=== PATIENT | female | born 1980 | race American Indian/Alaskan Native ===

== ENCOUNTER 2017-10-21 09:40 | Emergency (ER) | payer MEDICARE, MEDICAID ==
[2017-10-21 09:48] VITALS: BMI 32.8
[2017-10-21] MEDS ORDERED: Morphine 4 mg/ml ISec IVP STA ×2 (10:03→12:39)
[2017-10-21] MEDS ORDERED: Sodium Chloride 0.9% 1,000 ML IV STA (10:03)
--- NOTE | 2017-10-21 10:24 | ED PDOC ---
Arrival/HPI - General Chief Complaint: Abdominal Pain Time Seen by Provider: 10/21/17 09:55 Historian: Patient - History of Present Illness Narrative History of Present Illness (Text): 10/21/17 10:05 Vaughn Connolly is a 37 year old female, whose past medical history includes acute myeloid leukemia, received chemotherapy, a bone marrow transplant (5 weeks ago), hypertension, and asthma,who presents to the emergency department complaining of RLQ pain for one day. Patient notes that she was just at [facility] for follow-up yesterday, when she suddenly felt pain to RLQ area unremitting for 5 hours. Patient states that she has urinary frequency with some hematuria and vaginal bleeding due to having BK virus in urine. Patient denies any fever, chills, chest pain, shortness of breath, nausea, vomiting, diarrhea, back pain, neck pain, headache, dizziness, trauma/injury, suicidal/homicidal ideation or any other complaints. Time/Duration: 24 hours Symptom Onset: Gradual Symptom Course: Unchanged Activities at Onset: Light Context: Home Past Medical History - Provider Review Nursing Documentation Reviewed: Yes - Past History Past History: No Previous - Infectious Disease Hx of Infectious Diseases: None - Tetanus Immunization Tetanus Immunization: Unknown - Cardiac Hx Cardiac Disorders: Yes Hx Hypertension: Yes Hx Pacemaker: No - Pulmonary Hx Respiratory Disorders: Yes Hx Asthma: Yes - Neurological Hx Neurological Disorder: No - HEENT Hx HEENT Disorder: No - Renal Hx Renal Disorder: No - Endocrine/Metabolic Hx Endocrine Disorders: No - Hematological/Oncological Hx Blood Disorders: Yes Hx Anemia: Yes Hx Chemotherapy: Yes (for AML started Apr 2015 at [facility]) Hx Leukemia: Yes - Integumentary Hx Dermatological Disorder: No - Musculoskeletal/Rheumatological Hx Falls: No - Gastrointestinal Hx Gastrointestinal Disorders: No - Genitourinary/Gynecological Hx Sexually Transmitted Diseases: No Other/Comment: Hx fibroid uterus - Psychiatric Hx Psychophysiologic Disorder: Yes Hx Anxiety: Yes Hx Depression: No Hx Emotional Abuse: No Hx Panic Disorder: Yes Hx Physical Abuse: No Hx Substance Use: Yes (marijuana;STOPPED 01/2015) - Past Surgical History Past Surgical History: No Previous - Surgical History Other/Comment: Bone marrow transplant 5weeks ago from 10/21/2017 - Anesthesia Hx Anesthesia: Yes Hx Anesthesia Reactions: No Hx Malignant Hyperthermia: No - Suicidal Assessment Feels Threatened In Home Enviroment: No Family/Social History - Physician Review Nursing Documentation Reviewed: Yes Family/Social History: No Known Family HX Smoking Status: Former Smoker Hx Alcohol Use: Yes (SOCIAL;STOPPED 01/2015) Hx Substance Use: Yes (marijuana;STOPPED 01/2015) Substance used: marijuana Hx Substance Use Treatment: No Allergies/Home Meds Allergies/Adverse Reactions: Allergies lactose Adverse Reaction (Verified 04/19/17 18:07) DIARRHEA Home Medications: Home Meds Medication Instructions Recorded Confirmed Azithromycin [Zithromax] 1 tab PO MON 10/21/17 10/21/17 Ciprofloxacin [Cipro] 1 tab PO BID 10/21/17 10/21/17 Folic Acid [Folic Acid] 2 mg PO DAILY 10/21/17 10/21/17 Insulin Glargine, Recombina 10 unit SC HS 10/21/17 10/21/17 [Lantus] Insulin Lispro [Humalog (Insulin See Protocol SC TID 10/21/17 10/21/17 Lispro)] Magnesium Amino Acid Chelate 266 mg PO BID 10/21/17 10/21/17 [Magnesium] Metoprolol Tartrate [Lopressor] 1 tab PO Q12H 10/21/17 10/21/17 Mycophenolate Mofetil [Cellcept] 2 tab PO TID 10/21/17 10/21/17 Norgestimate-Ethinyl Estradiol 1 tab PO DAILY 10/21/17 10/21/17 [Ortho Tri-Cyclen 28 Tablet] Ondansetron HCl [Zofran] 1 tab PO Q8H PRN 10/21/17 10/21/17 Oxybutynin XL [Ditropan XL] 1 tab PO DAILY 10/21/17 10/21/17 Pantoprazole Sodium [Protonix] 1 tab PO DAILY 10/21/17 10/21/17 Phenazopyridine [Pyridium] 1 tab PO TID PRN 10/21/17 10/21/17 Posaconazole [Noxafil] 300 mg PO DAILY 10/21/17 10/21/17 Prednisone [Deltasone] 1 tab PO DAILY 10/21/17 10/21/17 QUEtiapine [SEROquel] 1 tab PO HS 10/21/17 10/21/17 Sulfamethoxazole/Trimethoprim 2 tab PO MWF 10/21/17 10/21/17 [Bactrim 400-80 mg Tablet] Tacrolimus [Prograf] 2 cap PO BID 10/21/17 10/21/17 Ursodiol [Actigall] 1 tab PO TID 10/21/17 10/21/17 diltiaZEM [Cardizem] 1 tab PO Q6H 10/21/17 10/21/17 oxyCODONE [oxyCODONE Immediate 1 tab PO Q4H PRN 10/21/17 10/21/17 Release Tab] valGANciclovir [Valcyte] 1 tab PO Q12H 10/21/17 10/21/17 Review of Systems - Physician Review All systems were reviewed & negative as marked: Yes - Review of Systems Constitutional: absent: Fevers, Night Sweats Eyes: absent: Vision Changes ENT: absent: Hearing Changes Respiratory: absent: SOB, Cough Cardiovascular: absent: Chest Pain Gastrointestinal: Abdominal Pain (RLQ) Genitourinary Female: Dysuria, Frequency, Hematuria Musculoskeletal: absent: Arthralgias, Back Pain Skin: absent: Rash, Pruritis Neurological: absent: Headache Endocrine: absent: Diaphoresis Hemo/Lymphatic: absent: Adenopathy Psychiatric: absent: Anxiety, Depression Physical Exam Vital Signs Reviewed: Yes Vital Signs Temp Pulse Resp BP Pulse Ox 10/21/17 14:49 94 H 17 133/87 99 10/21/17 13:07 92 H 18 135/90 98 10/21/17 10:25 98.4 F 90 17 136/92 H 99 - Systems Exam Head: Present: Atraumatic, Normocephalic Pupils: Present: PERRL Extroacular Muscles: Present: EOMI Conjunctiva: Present: Normal Mouth: Present: Moist Mucous Membranes Neck: Present: Normal Range of Motion Respiratory/Chest: Present: Clear to Auscultation, Good Air Exchange. No: Respiratory Distress, Accessory Muscle Use Cardiovascular: Present: Regular Rate and Rhythm, Normal S1, S2. No: Murmurs Abdomen: Present: Tenderness (RLQ) Back: Present: Normal Inspection Upper Extremity: Present: Normal Inspection. No: Cyanosis, Edema Lower Extremity: Present: Normal Inspection. No: Edema Neurological: Present: GCS=15, CN II-XII Intact, Speech Normal Skin: Present: Warm, Dry, Normal Color. No: Rashes Psychiatric: Present: Alert, Oriented x 3, Normal Insight, Normal Concentration Medical Decision Making ED Course and Treatment: 10/21/17 10:00 Impression: 37 year old female complaining of RLQ pain for one day. Plan: -- Transvaginal US -- VBG and Blood Culture -- Urine Culture and Urinalysis -- Labs -- Morphine, Zofran, and IV fluids -- Reassess and disposition Prior Visits: Notes and results from previous visits were reviewed. Patient was last seen in the emergency department on 04/19/17 for left Bartholin abscess x 2 days. Patient was admitted to hospitalist care for further evaluation. Progress Notes: 10/21/17 12:51 Transvaginal US: Creator : Joe Tovar MD FINDINGS: The uterus measures 11.3 x 7.0 x 9.0 centimeters. The endometrium is not well identified and is obscured secondary to multiple fibroids the largest measuring 5.1 centimeters in the fundal region. The right ovary measures 2.4 x 2.4 x 2.6 centimeters. The left ovary is not identified. There is no free fluid in the pelvis. IMPRESSION: Enlarged leiomyomatous uterus. Left ovary not identified. Endometrium not visualized. Correlate with pelvic MRI with contrast as clinically indicated. 10/21/17 13:16 Case discussed with Nurse Practitioner at Patient oncologist, Concepcion Leal, who instructs to stop zithromax and give Keflex for what appears to UTI. She will personally reach out to patient by phone this afternoon and have patient follow-up at office this Tuesday. - Lab Interpretations Lab Results: 10/21/17 10:45 10/21/17 10:45 Lab Results 10/21/17 10:45: Sodium 138, Chloride 101, Potassium 4.6, Carbon Dioxide 20 L, Anion Gap 21 H, BUN 32 H, Creatinine 1.2, Est GFR ( Amer) > 60, Est GFR ( Non-Af Amer) 51, Random Glucose 222 H, Calcium 9.2, Total Bilirubin 0.4, AST 48 H D, ALT 51, Alkaline Phosphatase 73, Total Protein 5.9, Albumin 3.7, Globulin 2.2, Albumin/Globulin Ratio 1.6, Lipase 159 10/21/17 10:45: pO2 144 H, VBG pH 7.42, VBG pCO2 36.0 L, VBG HCO3 23.4, VBG Total CO2 24.5, VBG O2 Sat (Calc) 99.5 H, VBG Base Excess -0.7 L, VBG Potassium 5.0, Sodium 134.0, Chloride 100.0, Glucose 244 H, Lactate 6.4 H*, FiO2 21.0, Venous Blood Potassium 5.0 10/21/17 10:45: Urine Color Dark red, Urine Appearance Bloody, Urine pH 7.0, Ur Specific [place] 1.020, Urine Protein >=300 H, Urine Glucose (UA) 250 H, Urine Ketones Negative, Urine Blood Large H, Urine Nitrate Positive H, Urine Bilirubin Negative, Urine Urobilinogen 1.0 H, Ur Leukocyte Esterase Small H, Urine RBC Tntc, Urine WBC 10 - 15, Ur Epithelial Cells 3 - 4, Urine Bacteria Mod 10/21/17 10:45: PT 12.0, INR 1.04 10/21/17 10:45: WBC 13.5 H D, RBC 3.56, Hgb 11.4 L D, Hct 34.6 L, MCV 97.2 D, MCH 32.0, MCHC 32.9, RDW 17.8 H, Plt Count 90 L, MPV 10.1, Gran % 92.0 H, Lymph % (Auto) 3.0 L, [place] % (Auto) 4.9, Eos % (Auto) 0.0 L, Baso % (Auto) 0.1, Gran # 12.45 H, Lymph # (Auto) 0.4 L, [place] # (Auto) 0.7 H, Eos # (Auto) 0.0, Baso # ( Auto) 0.02, Neutrophils % (Manual) 93 H, Lymphocytes % (Manual) 2 L, Monocytes % (Manual) 5, Nucleated RBC % 4, Platelet Evaluation Low, Anisocytosis (manual) Slight - RAD Interpretation Radiology Orders: 10/21/17 10:02 TRANSVAGINAL [US] Stat - Medication Orders Current Medication Orders: Discontinued Medications Sodium Chloride (Sodium Chloride 0.9%) 1,000 mls @ 999 mls/hr IV .Q1H1M STA Stop: 10/21/17 11:03 Last Admin: 10/21/17 10:33 Dose: 999 mls/hr eMAR Start Stop Document 10/21/17 10:33 SF (Rec: 10/21/17 10:33 SF [email or web address] Intravenous Solution Start Date 10/21/17 Start Time 10:33 End Date 10/21/17 End time 11:34 Total Infusion Time 61 Ceftriaxone Sodium (Rocephin 2 Gm Ivpb) 2 gm in 100 mls @ 100 mls/hr IVPB STAT STA PRN Reason: Protocol Stop: 10/21/17 12:50 Last Admin: 10/21/17 13:16 Dose: 100 mls/hr eMAR Start Stop Document 10/21/17 13:16 SF (Rec: 10/21/17 13:16 SF [email or web address]) Intravenous Solution Start Date 10/21/17 Start Time 13:16 End Date 10/21/17 End time 14:16 Total Infusion Time 60 Sodium Chloride (Sodium Chloride 0.9%) 2,000 mls @ 999 mls/hr IV .Q2H1M STA Stop: 10/21/17 13:52 Last Admin: 10/21/17 13:15 Dose: 999 mls/hr eMAR Start Stop Document 10/21/17 13:15 SF (Rec: 10/21/17 13:15 SF [email or web address]) Intravenous Solution Start Date 10/21/17 Start Time 13:15 End Date 10/21/17 End time 15:16 Total Infusion Time 121 Morphine Sulfate (Morphine) 4 mg IVP STAT STA Stop: 10/21/17 10:04 Last Admin: 10/21/17 10:33 Dose: 4 mg MAR Pain Assessment Document 10/21/17 10:33 SF (Rec: 10/21/17 10:34 [email or web address] Pain Reassessment Is this a pain reassessment? Yes Sleep Is patient sleeping during reassessment? No Pain Scale Used Pain Scale Used Numeric Location Left, Right or Bilateral Right Pain Location Body Site Abdomen Description Description Intermittent IVP Administration Document 10/21/17 10:33 SF (Rec: 10/21/17 10:34 SF [email or web address]) Charges for Administration # of IVP Administrations 1 Morphine Sulfate (Morphine) 4 mg IVP STAT STA Stop: 10/21/17 12:40 Last Admin: 10/21/17 13:16 Dose: 4 mg MAR Pain Assessment Document 10/21/17 13:16 SF (Rec: 10/21/17 13:16 [email or web address] Pain Reassessment Is this a pain reassessment? Yes Sleep Is patient sleeping during reassessment? No Presence of Pain Presence of Pain Yes IVP Administration Document 10/21/17 13:16 SF (Rec: 10/21/17 13:16 [facility] Charges for Administration # of IVP Administrations 1 Ondansetron HCl (Zofran Inj) 4 mg IVP STAT STA Stop: 10/21/17 10:04 Last Admin: 10/21/17 10:33 Dose: 4 mg IVP Administration Document 10/21/17 10:33 SF (Rec: 10/21/17 10:33 SF [facility]) Charges for Administration # of IVP Administrations 1 Ondansetron HCl (Zofran Inj) 4 mg IVP STAT STA Stop: 10/21/17 12:40 Last Admin: 10/21/17 12:40 Dose: 4 mg IVP Administration Document 10/21/17 12:40 SF (Rec: 10/21/17 13:18 [place] [id number]) Charges for Administration # of IVP Administrations 1 - Scribe Statement The provider has reviewed the documentation as recorded by the Scribe Disposition/Present on Arrival - Present on Arrival Any Indicators Present on Arrival: Yes History of DVT/PE: Yes History of Uncontrolled Diabetes: No Urinary Catheter: No History of Decub. Ulcer: No History Surgical Site Infection Following: None - Disposition Have Diagnosis and Disposition been Completed?: Yes Diagnosis: Combined abdominal and pelvic pain, Uterine fibroid, Dysfunctional uterine bleeding, Elevated lactic acid level, Bacterial urinary tract infection Disposition: HOME/ ROUTINE Disposition Time: 14:27 Patient Plan: Discharge Condition: GOOD Discharge Instructions (ExitCare): Urinary Tract Infection, Adult (DC) Additional Instructions: I spoke with Concepcion Lela - she will follow all of this up with you through the weekend. Keflex is three times a day for ten days. Drink Plenty of Water, need to flush your system. Return to us if problems. Ranjeet- Dr. Javy Scott Prescriptions: Cephalexin [Keflex] 500 mg PO TID #30 capsule Referrals: Jojo Herron MD [Primary Care Provider] - Follow up with primary Forms: [employer] ([place])
[2017-10-21 10:46] VITALS: TEMP 98.4
[2017-10-21 10:57] LABS: BASO # 0.02 K/mm3 (0.0-2.0); BASO % 0.1 % (0.0-3.0); GRAN # 12.45 (1.4-6.5); HEMOGLOBIN 11.4 g/dL (12.0-16.0); LYMPH # 0.4 (1.2-3.4); MEAN CELL VOLUME 97.2 fl (80.0-105.0); MEAN CORPUSCULAR HGB CONC 32.9 g/dl (31.0-37.0); MEAN PLATELET VOLUME 10.1 fl (7.0-11.0); MONO # 0.7 (0.1-0.6); MONO % 4.9 % (1.0-6.0); PLATELET COUNT 90 10^3/uL (120.0-450.0); RBC 3.56 10^6/uL (3.5-6.1); RED CELL DISTRIBUTION WIDTH 17.8 % (11.5-14.5); WHITE BLOOD COUNT 13.5 10^3/ul (4.5-11.0)
[2017-10-21 10:58] LABS: VENOUS BLOOD GAS BASE EXCESS -0.7 mmol/L (0.0-2.0); VENOUS BLOOD GAS PO2 144 mm/Hg (30-55); VENOUS BLOOD PH 7.42 (7.32-7.43)
[2017-10-21 10:59] LABS: INR 1.04 (0.93-1.08)
[2017-10-21 11:00] LABS: URINE BILIRUBIN NEGATIVE (NEGATIVE); URINE BLOOD LARGE (NEGATIVE); URINE GLUCOSE (UA) 250 mg/dL (NEGATIVE); URINE LEUKOCYTE ESTERASE SMALL Leu/uL (NEGATIVE); URINE PROTEIN >=300 mg/dL (<30 mg/dL)
[2017-10-21 11:03] LABS: ALB/GLOB RATIO 1.6 (1.1-1.8); ALBUMIN 3.7 g/dL (3.0-4.8); ALT/SGPT 51 U/L (7-56); AST/SGOT 48 U/L (14-36); BLOOD UREA NITROGEN 32 mg/dL (7-21); CALCIUM 9.2 mg/dL (8.4-10.5); GFR AFRICAN-AMERICAN > 60; GFR NON-AFRICAN AMERICAN 51; LIPASE 159 U/L (23-300)
[2017-10-21 11:14] LABS: URINE APPEARANCE BLOODY (CLEAR); URINE COLOR DARK RED (YELLOW); URINE RBC TNTC /hpf (0-2)
[2017-10-21 11:15] LABS: URINE BACTERIA MOD (NEG)
--- NOTE | 2017-10-21 11:28 | US ---
PROCEDURE: HISTORY: Right Sided Adenexal Pain COMPARISON: TECHNIQUE: FINDINGS: The uterus measures 11.3 x 7.0 x 9.0 centimeters. The endometrium is not well identified and is obscured secondary to multiple fibroids the largest measuring 5.1 centimeters in the fundal region. The right ovary measures 2.4 x 2.4 x 2.6 centimeters. The left ovary is not identified. There is no free fluid in the pelvis. IMPRESSION: Enlarged leiomyomatous uterus. Left ovary not identified. Endometrium not visualized. Correlate with pelvic MRI with contrast as clinically indicated.
[2017-10-21 11:34] LABS: LYMPHOCYTE 2 % (22.0-35.0); MONOCYTE 5 % (1.0-6.0); NEUTROPHIL 93 % (50.0-70.0); NUCLEATED RED BLOOD CELL 4 %; PLATELET ESTIMATE LOW (NORMAL)
[2017-10-21 11:35] LABS: ANISOCYTOSIS SLIGHT
[2017-10-21] MEDS ORDERED: cefTRIAXone 2 GM IN NS 2 GM/100 ML BAG IVPB STA (11:51)
[2017-10-21] MEDS ORDERED: Sodium Chloride 0.9% 2,000 ML IV STA (11:52)
[2017-10-21 14:51] VITALS: BP 133/87; PULSE 94; RESP 17; O2SAT 99
== END 2017-10-21 14:53 | disposition home or self-care (01) ==
LOC: ED 09:40
DX: D25.9 Leiomyoma of uterus, unspecified (principal); N39.0 Urinary tract infection, site not specified; N93.8 Other specified abnormal uterine and vaginal bleeding; R74.0 Nonspecific elevation of levels of transaminase and lactic acid dehydrogenase [LDH]; R10.2 Pelvic and perineal pain; R10.31 Right lower quadrant pain; I10 Essential (primary) hypertension; Z87.891 Personal history of nicotine dependence
CPT/HCPCS: 76830; 80053; 81001; 81025; 82803; 83690; 85025; 85610; 87040; 87086; 96361; 96365; 96375; 96376; 99285; J0696; J2270; J2405; J7040

== ENCOUNTER 2017-10-27 19:46 | Observation (INO) | payer MEDICARE, MEDICAID ==
[2017-10-27 20:04] VITALS: BMI 31.8
[2017-10-27] MEDS ORDERED: Sodium Chloride 0.9% 1,000 ML IV STA (20:11)
--- NOTE | 2017-10-27 20:20 | ED PDOC ---
Arrival/HPI - General Chief Complaint: Back Pain Time Seen by Provider: 10/27/17 20:01 - History of Present Illness Narrative History of Present Illness (Text): 10/27/17 20:19 Patient is a 37 y/o F with hx of AML s/p chemotherapy and bone marrow transplant , htn, asthma, on day 5/10 of keflex for uti, with hx of BK virus, presenting with suprapubic pain, cramping and vaginal bleeding. Patient reports a hx of heavy and painful menses due to fibroids. Reports persistent dysuria and b/l flank pain. Requesting narcotic pain medication for pain. Denies fever, chills , diarrhea/constipation, vomiting. Reports that she followed up with [place] this morning and was pain free at this time. 10/27/17 23:32 Past Medical History - Past History Past History: No Previous - Infectious Disease Hx of Infectious Diseases: None - Tetanus Immunization Tetanus Immunization: Unknown - Cardiac Hx Cardiac Disorders: Yes Hx Hypertension: Yes Hx Pacemaker: No - Pulmonary Hx Respiratory Disorders: Yes Hx Asthma: Yes - Neurological Hx Neurological Disorder: No - HEENT Hx HEENT Disorder: No - Renal Hx Renal Disorder: No - Endocrine/Metabolic Hx Endocrine Disorders: No - Hematological/Oncological Hx Blood Disorders: Yes Hx Anemia: Yes Hx Chemotherapy: Yes (for AML started Apr 2015 at [facility]) Hx Leukemia: Yes - Integumentary Hx Dermatological Disorder: No - Musculoskeletal/Rheumatological Hx Falls: No - Gastrointestinal Hx Gastrointestinal Disorders: No - Genitourinary/Gynecological Hx Sexually Transmitted Diseases: No Other/Comment: Hx fibroid uterus - Psychiatric Hx Psychophysiologic Disorder: Yes Hx Anxiety: Yes Hx Depression: No Hx Emotional Abuse: No Hx Panic Disorder: Yes Hx Physical Abuse: No Hx Substance Use: Yes (marijuana;STOPPED 01/2015) - Past Surgical History Past Surgical History: No Previous - Surgical History Other/Comment: Bone marrow transplant 5weeks ago from 10/21/2017 - Anesthesia Hx Anesthesia: Yes Hx Anesthesia Reactions: No Hx Malignant Hyperthermia: No - Suicidal Assessment Feels Threatened In Home Enviroment: No Family/Social History Smoking Status: Former Smoker Hx Alcohol Use: Yes (SOCIAL;STOPPED 01/2015) Hx Substance Use: Yes (marijuana;STOPPED 01/2015) Substance used: marijuana Hx Substance Use Treatment: No Allergies/Home Meds Allergies/Adverse Reactions: Allergies lactose Adverse Reaction (Verified 10/27/17 20:04) DIARRHEA Home Medications: Home Meds Medication Instructions Recorded Confirmed Azithromycin [Zithromax] 1 tab PO MON 10/21/17 10/21/17 Ciprofloxacin [Cipro] 1 tab PO BID 10/21/17 10/21/17 Folic Acid [Folic Acid] 2 mg PO DAILY 10/21/17 10/21/17 Insulin Glargine, Recombina 10 unit SC HS 10/21/17 10/21/17 [Lantus] Insulin Lispro [Humalog (Insulin See Protocol SC TID 10/21/17 10/21/17 Lispro)] Magnesium Amino Acid Chelate 266 mg PO BID 10/21/17 10/21/17 [Magnesium] Metoprolol Tartrate [Lopressor] 1 tab PO Q12H 10/21/17 10/21/17 Mycophenolate Mofetil [Cellcept] 2 tab PO TID 10/21/17 10/21/17 Norgestimate-Ethinyl Estradiol 1 tab PO DAILY 10/21/17 10/21/17 [Ortho Tri-Cyclen 28 Tablet] Ondansetron HCl [Zofran] 1 tab PO Q8H PRN 10/21/17 10/21/17 Oxybutynin XL [Ditropan XL] 1 tab PO DAILY 10/21/17 10/21/17 Pantoprazole Sodium [Protonix] 1 tab PO DAILY 10/21/17 10/21/17 Phenazopyridine [Pyridium] 1 tab PO TID PRN 10/21/17 10/21/17 Posaconazole [Noxafil] 300 mg PO DAILY 10/21/17 10/21/17 Prednisone [Deltasone] 1 tab PO DAILY 10/21/17 10/21/17 QUEtiapine [SEROquel] 1 tab PO HS 10/21/17 10/21/17 Sulfamethoxazole/Trimethoprim 2 tab PO MWF 10/21/17 10/21/17 [Bactrim 400-80 mg Tablet] Tacrolimus [Prograf] 2 cap PO BID 10/21/17 10/21/17 Ursodiol [Actigall] 1 tab PO TID 10/21/17 10/21/17 diltiaZEM [Cardizem] 1 tab PO Q6H 10/21/17 10/21/17 oxyCODONE [oxyCODONE Immediate 1 tab PO Q4H PRN 10/21/17 10/21/17 Release Tab] valGANciclovir [Valcyte] 1 tab PO Q12H 10/21/17 10/21/17 Review of Systems - Review of Systems ENT: absent: Hearing Changes Respiratory: absent: SOB, Cough, Sputum, Wheezing Cardiovascular: absent: Chest Pain, Palpitations, Edema, Calf Pain, MARR, Orthopnea, Syncope Gastrointestinal: Abdominal Pain, Nausea. absent: Constipation, Diarrhea, Vomiting Genitourinary Female: Dysuria, Hematuria, Vaginal Bleeding, Vaginal Discharge Neurological: absent: Headache, Dizziness, Focal Weakness Psychiatric: absent: Anxiety, Depression Physical Exam Vital Signs Temp Pulse Resp BP Pulse Ox 10/27/17 23:21 145/110 H 10/27/17 23:12 99 H 18 98 10/27/17 20:33 98.2 F 106 H 24 128/99 H 100 Temperature: Afebrile Blood Pressure: Normal Pulse: Tachycardic Respiratory Rate: Normal Appearance: Positive for: Well-Appearing, Non-Toxic, Comfortable Pain Distress: None Mental Status: Positive for: Alert and Oriented X 3 - Systems Exam Head: Present: Atraumatic, Normocephalic Pupils: Present: PERRL Extroacular Muscles: Present: EOMI Conjunctiva: Present: Normal Mouth: Present: Moist Mucous Membranes Neck: Present: Normal Range of Motion Respiratory/Chest: Present: Clear to Auscultation, Good Air Exchange. No: Respiratory Distress Cardiovascular: Present: Regular Rate and Rhythm, Normal S1, S2. No: Murmurs Abdomen: No: Tenderness, Distention Back: Present: CVA Tenderness Upper Extremity: Present: Normal Inspection Lower Extremity: Present: Normal Inspection Medical Decision Making ED Course and Treatment: 10/27/17 22:55 Labs consistent with thrombocytopenia and baseline anemia. Patient saw her physician scribe this morning. UA negative for infection (Trace leukocytes and only 2-4 wbc) and already on antibiotics for uti. (+blood but on menses). Ucx sent. 10/27/17 23:09 CT shows Mild bilateral hydroureteronephrosis with perinephric and periureteral inflammatory stranding, right greater than left. Thick walled bladder with adjacent inflammatory stranding. Findings suggest an infectious/inflammatory process. No definite distal ureteral stone. Nephrolithiasis. Nonspecific inflammatory stranding in the retroperitoneum surrounding the aorta and IVC. Multiple subcentimeter retroperitoneal lymph nodes. Enlarged fibroid uterus. Stable mass in the left adnexa favoring a subserosal pedunculated fibroid. Other adnexal masses or adenopathy considered less likely. If clinically warranted, followup pelvic ultrasound or MRI could be obtained. Diverticulosis. No acute diverticulitis. 10/27/17 23:13 Patient has failed outpatient therapy - Lab Interpretations Lab Results: 10/27/17 21:25 10/27/17 21:25 Lab Results 10/27/17 21:30: Urine Color Dark red, Urine Appearance Turbid, Urine pH 8.5, Ur Specific [place] 1.025, Urine Protein >=300 H, Urine Glucose (UA) 250 H, Urine Ketones Negative, Urine Blood Large H, Urine Nitrate Negative, Urine Bilirubin Negative, Urine Urobilinogen 0.2, Ur Leukocyte Esterase Trace H, Urine RBC Tntc , Urine WBC 2 - 5, Ur Epithelial Cells 4 - 5 10/27/17 21:25: Sodium 138, Potassium 4.6, Chloride 104, Carbon Dioxide 21, Anion Gap 18, BUN 31 H, Creatinine 1.1, Est GFR ( Amer) > 60, Est GFR ( Non-Af Amer) 56, Random Glucose 207 H, Calcium 8.6, Phosphorus 3.6, Magnesium 1.6 L, Total Bilirubin 0.5, AST 53 H, ALT 56, Alkaline Phosphatase 57, Total Protein 5.1 L, Albumin 3.0, Globulin 2.1, Albumin/Globulin Ratio 1.4, Lipase 68 10/27/17 21:25: WBC 6.6 D, RBC 3.06 L, Hgb 10.1 L, Hct 29.8 L, MCV 97.4, MCH 33.0, MCHC 33.9, RDW 19.0 H, Plt Count 41 L*, Gran % 76.1 H, Lymph % (Auto) 17.8 L, [place] % (Auto) 5.5, Eos % (Auto) 0.0 L, Baso % (Auto) 0.6, Gran # 5.01, Lymph # (Auto) 1.2, [place] # (Auto) 0.4, Eos # (Auto) 0.0, Baso # (Auto) 0.04 - RAD Interpretation Radiology Orders: 10/27/17 20:42 ABD & PELVIS W/O PO OR IV CONT [CT] Stat - Medication Orders Current Medication Orders: Ceftriaxone Sodium (Rocephin 1 Gram Ivpb) 1 gm in 100 mls @ 200 mls/hr IVPB STAT STA Stop: 10/27/17 23:50 Discontinued Medications Sodium Chloride (Sodium Chloride 0.9%) 1,000 mls @ 999 mls/hr IV .Q1H1M STA Stop: 10/27/17 21:11 Last Admin: 10/27/17 21:24 Dose: 999 mls/hr eMAR Start Stop Document 10/27/17 21:24 SS (Rec: 10/27/17 21:24 SS [id number]) Intravenous Solution Start Date 10/27/17 Start Time 21:24 End Date 10/27/17 End time 22:24 Total Infusion Time 60 Metoprolol Tartrate (Lopressor) 5 mg IVP STAT STA Stop: 10/27/17 23:28 Morphine Sulfate (Morphine) 4 mg IVP STAT STA Stop: 10/27/17 20:23 Last Admin: 10/27/17 21:25 Dose: 4 mg MAR Pain Assessment Document 10/27/17 21:25 SS (Rec: 10/27/17 21:25 SS [id number]) Pain Reassessment Is this a pain reassessment? No Sleep Is patient sleeping during reassessment? No Presence of Pain Presence of Pain Yes Pain Scale Used Pain Scale Used Numeric IVP Administration Document 10/27/17 21:25 SS (Rec: 10/27/17 21:25 SS [id number]) Charges for Administration # of IVP Administrations 1 Ondansetron HCl (Zofran Inj) 4 mg IVP STAT STA Stop: 10/27/17 20:12 Last Admin: 10/27/17 21:24 Dose: 4 mg IVP Administration Document 10/27/17 21:24 SS (Rec: 10/27/17 21:25 SS [id number]) Charges for Administration # of IVP Administrations 1 Disposition/Present on Arrival - Present on Arrival Any Indicators Present on Arrival: No History of DVT/PE: Yes History of Uncontrolled Diabetes: No Urinary Catheter: No History of Decub. Ulcer: No History Surgical Site Infection Following: None - Disposition Diagnosis: Anemia, Thrombocytopenia, Menses painful Disposition: HOSPITALIZED Disposition Time: 23:17 Patient Plan: Admission Patient Problems: Current Active Problems Problem Status Onset Anemia Acute Menses painful Acute Thrombocytopenia Acute Condition: FAIR
[2017-10-27] MEDS ORDERED: Morphine 4 mg/ml ISec IVP STA (20:22)
[2017-10-27 21:42] LABS: BASO # 0.04 K/mm3 (0.0-2.0); BASO % 0.6 % (0.0-3.0); GRAN # 5.01 (1.4-6.5); GRAN % 76.1 % (50.0-68.0); HEMOGLOBIN 10.1 g/dL (12.0-16.0); LYMPH # 1.2 (1.2-3.4); LYMPH % 17.8 % (22.0-35.0); MEAN CELL VOLUME 97.4 fl (80.0-105.0); MEAN CORPUSCULAR HGB CONC 33.9 g/dl (31.0-37.0); MONO # 0.4 (0.1-0.6); MONO % 5.5 % (1.0-6.0); RBC 3.06 10^6/uL (3.5-6.1); WHITE BLOOD COUNT 6.6 10^3/ul (4.5-11.0)
[2017-10-27 21:45] LABS: PLATELET COUNT 41 10^3/uL (120.0-450.0)
[2017-10-27 21:49] LABS: PH,URINE 8.5 (4.7-8.0); URINE APPEARANCE TURBID (CLEAR); URINE BILIRUBIN NEGATIVE (NEGATIVE); URINE BLOOD LARGE (NEGATIVE); URINE COLOR DARK RED (YELLOW); URINE GLUCOSE (UA) 250 mg/dL (NEGATIVE); URINE LEUKOCYTE ESTERASE TRACE Leu/uL (NEGATIVE); URINE PROTEIN >=300 mg/dL (<30 mg/dL); URINE UROBILINOGEN 0.2 E.U./dL (<1 E.U./dL)
[2017-10-27 21:59] LABS: URINE RBC TNTC /hpf (0-2)
[2017-10-27 22:07] LABS: ALB/GLOB RATIO 1.4 (1.1-1.8); ALT/SGPT 56 U/L (7-56); AST/SGOT 53 U/L (14-36); BLOOD UREA NITROGEN 31 mg/dL (7-21); CALCIUM 8.6 mg/dL (8.4-10.5); GFR AFRICAN-AMERICAN > 60; GFR NON-AFRICAN AMERICAN 56; LIPASE 68 U/L (23-300)
--- NOTE | 2017-10-27 23:08 | CT ---
EXAM: CT Abdomen and Pelvis Without Intravenous Contrast CLINICAL HISTORY: 37 years old, female; Pain; Abdominal pain; Prior surgery; Surgery date: 1-6 months; Surgery type: Bone marrow transplant; Additional info: Flank pain, abdominal pain TECHNIQUE: Axial computed tomography images of the abdomen and pelvis without intravenous contrast. All CT scans at this facility use one or more dose reduction techniques, viz.: automated exposure control; ma/kV adjustment per patient size (including targeted exams where dose is matched to indication; i.e. head); or iterative reconstruction technique. Coronal and sagittal reformatted images were created and reviewed. COMPARISON: CT - PELVIS W/IV CONTRAST ONLY 2017-04-19 22:16 FINDINGS: Lung bases: Unremarkable. No mass. No consolidation. ABDOMEN: Liver: The liver is within normal limits for this noncontrast study. Gallbladder and bile ducts: Multiple calcified gallstones are present. No ductal dilation. Pancreas: Unremarkable. No ductal dilation. Spleen: Unremarkable. No splenomegaly. Adrenals: Unremarkable. No mass. Kidneys and ureters: There are multiple bilateral renal collecting system calcifications. There is mild fullness of the left collecting system and ureter. Mild left periureteral inflammatory stranding is noted. Mild right hydronephrosis and hydroureter with mild perinephric and periureteral inflammatory stranding. No definite distal ureteral stone is identified. Stomach and bowel: Unremarkable. No obstruction. No mucosal thickening. There is no wall thickening or pericolonic stranding to suggest colitis. Mild diverticulosis is present in the sigmoid and descending colon. PELVIS: Appendix: No findings to suggest acute appendicitis. Normal appendix. Bladder: The bladder is decompressed and thickwalled with adjacent inflammatory stranding of the pelvis. No stones. Reproductive: The uterus is enlarged with multiple fibroids. There is a mass in the left pelvis measuring 4.8 x 3.4 x 6.3 cm, probably a subserosal pedunculated fibroid. ABDOMEN and PELVIS: Intraperitoneal space: Unremarkable. No free air. No significant fluid collection. Bones/joints: No acute fracture. No dislocation. Soft tissues: Unremarkable. Vasculature: There is mild stranding of the retroperitoneum surrounding the aorta and IVC.There are numerous benign phleboliths in the pelvis. No abdominal aortic aneurysm. Lymph nodes: There are multiple small subcentimeter paraaortic/retroperitoneal lymph nodes. No enlarged lymph nodes. IMPRESSION: Mild bilateral hydroureteronephrosis with perinephric and periureteral inflammatory stranding, right greater than left. Thick walled bladder with adjacent inflammatory stranding. Findings suggest an infectious/inflammatory process. No definite distal ureteral stone. Nephrolithiasis. Nonspecific inflammatory stranding in the retroperitoneum surrounding the aorta and IVC. Multiple subcentimeter retroperitoneal lymph nodes. Enlarged fibroid uterus. Stable mass in the left adnexa favoring a subserosal pedunculated fibroid. Other adnexal masses or adenopathy considered less likely. If clinically warranted, followup pelvic ultrasound or MRI could be obtained. Diverticulosis. No acute diverticulitis.
[2017-10-27] MEDS ORDERED: cefTRIAXone (Rocephin) 1 gm Inj IVPB STA (23:12)
[2017-10-27] MEDS ORDERED: cefTRIAXone 1 GM/100 ML BAG IVPB STA (23:21)
[2017-10-27] MEDS ORDERED: Metoprolol 1 mg/ml Inj IVP STA (23:27)
[2017-10-28 00:25] VITALS: O2SAT 100
[2017-10-28] MEDS ORDERED: Magnesium Sulfate 2 GM in Sodium Chloride 0.9% 100 ML IVPB ONE (00:40)
[2017-10-28] MEDS ORDERED: oxyCODONE 5 mg Immediate Release Tab PO PRN (00:42)
[2017-10-28] MEDS ORDERED: Sodium Chloride 0.9% 1,000 ML IV SCH (00:45)
--- NOTE | 2017-10-28 01:39 | CP.PCM.HP ---
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 According to family at bedside patient was in extreme pain this evening and was instructed by their supervisor refractory products oncologist at [facility] to proceed to the nearest ED in their last meeting. Patient was recently seen by her heme/onc team at [place] earlier today when she was instructed to try and cut back on her oxycodone usage. Patient reports taking 5mg in the AM and 10mg this evening in an attempt to deal with her pain symptoms. Patient reports pain is controlled at time of interview. Associated symptoms for patient include right flank pain and dysuria. Patient admits these symptoms are ongoing for the past few weeks as she has chronic UTI and history of heavy and painful menses secondary to uterine fibroids. Patient admits to vaginal bleeding at time of presentation. Patient reports headaches, nausea and chills. Patient was recently seen in ED 10/21/17 for similar symptoms and diagnosed with UTI and given Keflex for which today is day 10/20 for her therapy. Also on last admit urine culture was preformed and has resulted as negative. PMH: AML s/p bone marrow transplant(in remission and last chemo in September), HTN, and asthma, bartholin duct cyst PSH: Marsupilization of bartholin gland cyst SOCHX: Denies tobacco, etoh, ID Allergies: Lactose intolerant, NKDA Medications: MAR reviewed Present on Admission - Present on Admission Any Indicators Present on Admission: No Review of Systems - Constitutional Constitutional: Chills, Headache, Weakness - EENT Eyes: Change in Vision Nose/Mouth/Throat: absent: Epistaxis, Nasal Discharge - Cardiovascular Cardiovascular: absent: Chest Pain, Chest Pain at Rest - Respiratory Respiratory: absent: Cough, Dyspnea - Gastrointestinal Gastrointestinal: Abdominal Pain (RLQ). absent: Bloating, Cramping, Vomiting - Neurological Neurological: absent: Abnormal Gait, Abnormal Hearing, Abnormal Movements, Convulsions, Frequent Falls - Psychiatric Psychiatric: absent: Anxiety, Behavioral Changes Past Patient History - Infectious Disease Hx of Infectious Diseases: None - Tetanus Immunizations Tetanus Immunization: Unknown - Past Social History Smoking Status: Former Smoker - CARDIAC Hx Cardiac Disorders: Yes Hx Hypertension: Yes Hx Pacemaker: No - PULMONARY Hx Respiratory Disorders: Yes Hx Asthma: Yes - NEUROLOGICAL Hx Neurological Disorder: No - HEENT Hx HEENT Problems: No - RENAL Hx Chronic Kidney Disease: No - ENDOCRINE/METABOLIC Hx Endocrine Disorders: No - HEMATOLOGICAL/ONCOLOGICAL Hx Blood Disorders: Yes Hx Anemia: Yes Hx Chemotherapy: Yes (for AML started Apr 2015 at [facility]) Hx Leukemia: Yes - INTEGUMENTARY Hx Dermatological Problems: No - MUSCULOSKELETAL/RHEUMATOLOGICAL Hx Falls: No - GASTROINTESTINAL Hx Gastrointestinal Disorders: No - GENITOURINARY/GYNECOLOGICAL Hx Sexually Transmitted Disorders: No Other/Comment: Hx fibroid uterus - PSYCHIATRIC Hx Psychophysiologic Disorder: Yes Hx Anxiety: Yes Hx Depression: No Hx Emotional Abuse: No Hx Panic Symptoms: Yes Hx Physical Abuse: No Hx Substance Use: Yes (marijuana;STOPPED 01/2015) - SURGICAL HISTORY Other/Comment: Bone marrow transplant 5weeks ago from 10/21/2017 - ANESTHESIA Hx Anesthesia: Yes Hx Anesthesia Reactions: No Hx Malignant Hyperthermia: No Meds Allergies/Adverse Reactions: Allergies Allergy/AdvReac Type Severity Reaction Status Date / Time lactose AdvReac DIARRHEA Verified 10/27/17 20:04 Physical Exam - Constitutional Appears: No Acute Distress, Older Than Stated Age - Head Exam Head Exam: ATRAUMATIC, NORMAL INSPECTION, NORMOCEPHALIC - Eye Exam Eye Exam: EOMI, PERRL - ENT Exam ENT Exam: Mucous Membranes Dry - Respiratory Exam Respiratory Exam: Clear to Auscultation Bilateral, NORMAL BREATHING PATTERN. absent: Rhonchi, Wheezes - Cardiovascular Exam Cardiovascular Exam: REGULAR RHYTHM, +S1, +S2 - GI/Abdominal Exam GI & Abdominal Exam: Soft, Tenderness (RLQ, right flank pain ) - Exam Additional comments: deferred - Extremities Exam Extremities exam: Positive for: normal capillary refill, pedal edema (1+ swelling), pedal pulses present. Negative for: calf tenderness - Neurological Exam Neurological exam: Alert, CN II-XII Intact, Oriented x3 - Psychiatric Exam Psychiatric exam: Normal Affect, Normal Mood - Skin Skin Exam: Dry, Warm Results - Vital Signs Recent Vital Signs: Last Vital Signs Temp 98.2 F 10/27/17 20:33 Pulse 86 10/28/17 00:24 Resp 14 10/28/17 00:24 BP 135/96 H 10/28/17 00:24 Pulse Ox 100 10/28/17 00:24 - Labs Result Diagrams: 10/27/17 21:25 10/27/17 21:25 Labs: Laboratory Results - last 24 hr 10/27/17 10/27/17 10/27/17 21:25 21:25 21:30 WBC 6.6 D RBC 3.06 L Hgb 10.1 L Hct 29.8 L MCV 97.4 MCH 33.0 MCHC 33.9 RDW 19.0 H Plt Count 41 L* Gran % 76.1 H Lymph % (Auto) 17.8 L [place] % (Auto) 5.5 Eos % (Auto) 0.0 L Baso % (Auto) 0.6 Gran # 5.01 Lymph # (Auto) 1.2 [place] # (Auto) 0.4 Eos # (Auto) 0.0 Baso # (Auto) 0.04 Sodium 138 Potassium 4.6 Chloride 104 Carbon Dioxide 21 Anion Gap 18 BUN 31 H Creatinine 1.1 Est GFR ( Amer) > 60 Est GFR (Non-Af Amer) 56 Random Glucose 207 H Calcium 8.6 Phosphorus 3.6 Magnesium 1.6 L Total Bilirubin 0.5 AST 53 H ALT 56 Alkaline Phosphatase 57 Total Protein 5.1 L Albumin 3.0 Globulin 2.1 Albumin/Globulin Ratio 1.4 Lipase 68 Urine Color Dark red Urine Appearance Turbid Urine pH 8.5 Ur Specific Michael 1.025 Urine Protein >=300 H Urine Glucose (UA) 250 H Urine Ketones Negative Urine Blood Large H Urine Nitrate Negative Urine Bilirubin Negative Urine Urobilinogen 0.2 Ur Leukocyte Esterase Trace H Urine RBC Tntc Urine WBC 2 - 5 Ur Epithelial Cells 4 - 5 Assessment & Plan - Assessment and Plan (Free Text) Assessment: 37 year old female with 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 Abdomen and pelvis CT showing pyelonephritis, urethral and renal stranding, - . Patient to be admitted for pyelonephritis and treated with IV antibiotics. Plan: 1. Pyelonephritis - Vancomycin and Rocephin - Abd/Pelvis CT showing - Mild bilateral hydroureteronephrosis with perinephric and periureteral inflammatory stranding, right greater than left. Thick walled bladder with adjacent inflammatory stranding. Findings suggest an infectious/inflammatory process. No definite distal ureteral stone. Nephrolithiasis. - Nonspecific inflammatory stranding in the retroperitoneum surrounding the aorta and IVC. Multiple subcentimeter retroperitoneal lymph nodes. - Enlarged fibroid uterus. Stable mass in the left adnexa favoring a subserosal pedunculated fibroid. - Other adnexal masses or adenopathy considered less likely. If clinically warranted, followup pelvic ultrasound or MRI could be obtained. - Diverticulosis. No acute diverticulitis. - Hx of BK virus - Urine culture from 10/21 with no growth - Previously taken keflex days 10/20 - UTI tonight showing - positive leuk est, 0-2 wbc - ID consult appreciate recs 2. AML-currently in remission -last chemotherapy in September - s/p bone marrow transplant ~6 weeks prior -follows outpatient with oncologist 3. HTN -BP elevated - Lopressor given in ED - Likely secondary to pain - continue home meds 4. Thrombocytopenia - Likely secondary to AML - Monitor daily CBC DVT ppx: SCD GI ppx: protonix Case and plan discussed with attending - Date & Time Date: 10/28/17 Time: 01:42 <Milton Ramos Q - Last Filed: 10/28/17 03:06> Results - Vital Signs Recent Vital Signs: Last Vital Signs Temp 98.2 F 10/27/17 20:33 Pulse 86 10/28/17 00:24 Resp 14 10/28/17 00:24 BP 135/96 H 10/28/17 00:24 Pulse Ox 100 10/28/17 00:24 - Labs Result Diagrams: 10/27/17 21:25 10/27/17 21:25 Attending/Attestation - Attestation I have personally seen and examined this patient.: Yes I have fully participated in the care of the patient.: Yes I have reviewed all pertinent clinical information: Yes
[2017-10-28] MEDS: Morphine 2 mg/ml ISec IVP PRN ×3 (01:53→09:51)
[2017-10-28] MEDS ORDERED: Insulin Lispro (HUMAlog) HIGH Coverage SC SCH (07:30)
[2017-10-28 08:16] VITALS: RESP 20; TEMP 97.8
[2017-10-28 09:14] LABS: ALB/GLOB RATIO 1.3 (1.1-1.8); ALBUMIN 2.5 g/dL (3.0-4.8); ALT/SGPT 51 U/L (7-56); AST/SGOT 41 U/L (14-36); BLOOD UREA NITROGEN 22 mg/dL (7-21); CALCIUM 8.2 mg/dL (8.4-10.5); GFR AFRICAN-AMERICAN > 60; GFR NON-AFRICAN AMERICAN > 60
[2017-10-28 09:16] LABS: BASO # 0.02 K/mm3 (0.0-2.0); BASO % 0.4 % (0.0-3.0); GRAN # 3.85 (1.4-6.5); GRAN % 76.1 % (50.0-68.0); LYMPH # 0.9 (1.2-3.4); LYMPH % 18.4 % (22.0-35.0); MEAN CELL VOLUME 98.2 fl (80.0-105.0); MEAN CORPUSCULAR HEMOGLOBIN 32.8 pg (25.0-35.0); MEAN CORPUSCULAR HGB CONC 33.5 g/dl (31.0-37.0); MONO # 0.3 (0.1-0.6); MONO % 5.1 % (1.0-6.0); PLATELET COUNT 34 10^3/uL (120.0-450.0); RBC 2.74 10^6/uL (3.5-6.1); RED CELL DISTRIBUTION WIDTH 19.4 % (11.5-14.5); WHITE BLOOD COUNT 5.1 10^3/ul (4.5-11.0)
[2017-10-28] MEDS ORDERED: NORGESTIMATE ETHINYL ESTRADIOL PO SCH (10:00)
[2017-10-28] MEDS ORDERED: Vancomycin 1gm in NS 250ml 1 GM/250 ML BAG IVPB SCH (10:00)
[2017-10-28] MEDS ORDERED: POLYETHYLENE GLYCOL 3350 17 GM/Dose PACKET PO SCH (10:00)
[2017-10-28] MEDS ORDERED: POSACONAZOLE 300 MG PO SCH (10:00)
[2017-10-28] MEDS ORDERED: Insulin Detemir 100 units/ml Vial (Levemir) SC SCH (10:00)
[2017-10-28] MEDS ORDERED: cefTRIAXone 2 GM IN NS 2 GM/100 ML BAG IVPB SCH (10:00)
[2017-10-28] MEDS ORDERED: Tmp-Smz 400 mg-80 mg SS Tab PO SCH (10:00)
[2017-10-28] MEDS ORDERED: OXYBUTYNIN PO SCH (10:00)
[2017-10-28] MEDS ORDERED: Morphine 2 mg/ml ISec IVP STA (10:55)
--- NOTE | 2017-10-28 10:57 | CP.PCM.DIS ---
<Isabel Cannon - Last Filed: 10/28/17 11:49> Provider - Provider Date of Admission: 10/27/17 23:16 Attending physician: Michelle Santa MD Primary care physician: Jojo Herron MD Time Spent in preparation of Discharge (in minutes): 60 Diagnosis - Discharge Diagnosis (1) Pyelonephritis Status: Acute Hospital Course - Lab Results Lab Results: Most Recent Lab Values WBC 5.1 10^3/ul (4.5-11.0) D 10/28/17 08:59 RBC 2.74 10^6/uL (3.5-6.1) L 10/28/17 08:59 Hgb 9.0 g/dL (12.0-16.0) L 10/28/17 08:59 Hct 26.9 % (36.0-48.0) L 10/28/17 08:59 MCV 98.2 fl (80.0-105.0) 10/28/17 08:59 MCH 32.8 pg (25.0-35.0) 10/28/17 08:59 MCHC 33.5 g/dl (31.0-37.0) 10/28/17 08:59 RDW 19.4 % (11.5-14.5) H 10/28/17 08:59 Plt Count 34 10^3/uL (120.0-450.0) L* 10/28/17 08:59 Gran % 76.1 % (50.0-68.0) H 10/28/17 08:59 Lymph % (Auto) 18.4 % (22.0-35.0) L 10/28/17 08:59 [place] % (Auto) 5.1 % (1.0-6.0) 10/28/17 08:59 Eos % (Auto) 0.0 % (1.5-5.0) L 10/28/17 08:59 Baso % (Auto) 0.4 % (0.0-3.0) 10/28/17 08:59 Gran # 3.85 (1.4-6.5) 10/28/17 08:59 Lymph # (Auto) 0.9 (1.2-3.4) L 10/28/17 08:59 [place] # (Auto) 0.3 (0.1-0.6) 10/28/17 08:59 Eos # (Auto) 0.0 (0.0-0.7) 10/28/17 08:59 Baso # (Auto) 0.02 K/mm3 (0.0-2.0) 10/28/17 08:59 APTT 21.3 Seconds (25.1-36.5) L 10/28/17 06:50 Sodium 142 mmol/L (132-148) 10/28/17 08:59 Potassium 3.6 mmol/L (3.6-5.0) 10/28/17 08:59 Chloride 107 mmol/L (98-107) 10/28/17 08:59 Carbon Dioxide 23 mmol/L (21-33) 10/28/17 08:59 Anion Gap 16 (10-20) 10/28/17 08:59 BUN 22 mg/dL (7-21) H 10/28/17 08:59 Creatinine 0.9 mg/dl (0.7-1.2) 10/28/17 08:59 Est GFR ( Amer) > 60 10/28/17 08:59 Est GFR (Non-Af Amer) > 60 10/28/17 08:59 POC Glucose (mg/dL) 162 mg/dL (65-110) H 10/28/17 06:40 Random Glucose 164 mg/dL (70-110) H 10/28/17 08:59 Calcium 8.2 mg/dL (8.4-10.5) L 10/28/17 08:59 Phosphorus 3.6 mg/dL (2.5-4.5) 10/27/17 21:25 Magnesium 1.6 mg/dL (1.7-2.2) L 10/27/17 21:25 Total Bilirubin 0.2 mg/dL (0.2-1.3) 10/28/17 08:59 AST 41 U/L (14-36) H D 10/28/17 08:59 ALT 51 U/L (7-56) 10/28/17 08:59 Alkaline Phosphatase 53 U/L (38-126) 10/28/17 08:59 Total Protein 4.4 g/dL (5.8-8.3) L 10/28/17 08:59 Albumin 2.5 g/dL (3.0-4.8) L 10/28/17 08:59 Globulin 1.9 gm/dL 10/28/17 08:59 Albumin/Globulin Ratio 1.3 (1.1-1.8) 10/28/17 08:59 Lipase 68 U/L (23-300) 10/27/17 21:25 Urine Color Dark red (YELLOW) 10/27/17 21:30 Urine Appearance Turbid (CLEAR) 10/27/17 21:30 Urine pH 8.5 (4.7-8.0) 10/27/17 21:30 Ur Specific [place] 1.025 (1.005-1.035) 10/27/17 21:30 Urine Protein >=300 mg/dL (<30 mg/dL) H 10/27/17 21:30 Urine Glucose (UA) 250 mg/dL (NEGATIVE) H 10/27/17 21:30 Urine Ketones Negative mg/dL (NEGATIVE) 10/27/17 21:30 Urine Blood Large (NEGATIVE) H 10/27/17 21:30 Urine Nitrate Negative (NEGATIVE) 10/27/17 21:30 Urine Bilirubin Negative (NEGATIVE) 10/27/17 21:30 Urine Urobilinogen 0.2 E.U./dL (<1 E.U./dL) 10/27/17 21:30 Ur Leukocyte Esterase Trace Alexia/uL (NEGATIVE) H 10/27/17 21:30 Urine RBC Tntc /hpf (0-2) 10/27/17 21:30 Urine WBC 2 - 5 /hpf (0-6) 10/27/17 21:30 Ur Epithelial Cells 4 - 5 /hpf (0-5) 10/27/17 21:30 - Hospital Course Hospital Course: 37 year old female with 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 Pt admitted for pyelonephritis, given rocephin. Pt hemodynamically stable, all labs , imaging reviewed and treated therapeutically. Pt being transferred to [facility] for further care (as she previously had transplant done there with Dr Freed). Case discussed with Dr Mooney. Discharge Exam - Head Exam Head Exam: ATRAUMATIC, NORMAL INSPECTION, NORMOCEPHALIC - Eye Exam Eye Exam: EOMI, PERRL. absent: Conjunctival injection, Nystagmus, Periorbital swelling, Scleral icterus Pupil Exam: NORMAL ACCOMODATION, PERRL. absent: Unequal - ENT Exam ENT Exam: Mucous Membranes Moist - Neck Exam Neck exam: Full Rom - Respiratory Exam Respiratory Exam: Clear to PA & Lateral, NORMAL BREATHING PATTERN. absent: Accessory Muscle Use, Chest Wall Tenderness, Prolonged Expiratory Phase, Wheezes , Stridor - Cardiovascular Exam Cardiovascular Exam: RRR, +S1, +S2. absent: Systolic Murmur - GI/Abdominal Exam GI & Abdominal Exam: Normal Bowel Sounds, Soft, Tenderness (suprapubic tenderness). absent: Distended, Mass, Organomegaly, Rebound - Extremities Exam Extremities exam: normal inspection - Back Exam Back exam: CVA tenderness (L), CVA tenderness (R) - Neurological Exam Neurological exam: Alert, Oriented x3 - Psychiatric Exam Psychiatric exam: Normal Affect, Normal Mood - Skin Skin Exam: Dry, Normal Color, Warm Discharge Plan - Follow Up Plan Condition: FAIR Disposition: Transfer [facility] Instructions: Kidney Infection (DC), Urinary Tract Infection in Women (DC) Additional Instructions: - please resume care at [facility]. Referrals: Jojo Herron MD [Primary Care Provider] - <[email or web address] - Last Filed: 10/28/17 17:33> Provider - Provider Date of Admission: 10/27/17 23:16 Attending physician: Michelle Santa MD Primary care physician: Jojo Herron MD Hospital Course - Lab Results Lab Results: Most Recent Lab Values WBC 5.1 10^3/ul (4.5-11.0) D 10/28/17 08:59 RBC 2.74 10^6/uL (3.5-6.1) L 10/28/17 08:59 Hgb 9.0 g/dL (12.0-16.0) L 10/28/17 08:59 Hct 26.9 % (36.0-48.0) L 10/28/17 08:59 MCV 98.2 fl (80.0-105.0) 10/28/17 08:59 MCH 32.8 pg (25.0-35.0) 10/28/17 08:59 MCHC 33.5 g/dl (31.0-37.0) 10/28/17 08:59 RDW 19.4 % (11.5-14.5) H 10/28/17 08:59 Plt Count 34 10^3/uL (120.0-450.0) L* 10/28/17 08:59 Gran % 76.1 % (50.0-68.0) H 10/28/17 08:59 Lymph % (Auto) 18.4 % (22.0-35.0) L 10/28/17 08:59 [place] % (Auto) 5.1 % (1.0-6.0) 10/28/17 08:59 Eos % (Auto) 0.0 % (1.5-5.0) L 10/28/17 08:59 Baso % (Auto) 0.4 % (0.0-3.0) 10/28/17 08:59 Gran # 3.85 (1.4-6.5) 10/28/17 08:59 Lymph # (Auto) 0.9 (1.2-3.4) L 10/28/17 08:59 [place] # (Auto) 0.3 (0.1-0.6) 10/28/17 08:59 Eos # (Auto) 0.0 (0.0-0.7) 10/28/17 08:59 Baso # (Auto) 0.02 K/mm3 (0.0-2.0) 10/28/17 08:59 APTT 21.3 Seconds (25.1-36.5) L 10/28/17 06:50 Sodium 142 mmol/L (132-148) 10/28/17 08:59 Potassium 3.6 mmol/L (3.6-5.0) 10/28/17 08:59 Chloride 107 mmol/L (98-107) 10/28/17 08:59 Carbon Dioxide 23 mmol/L (21-33) 10/28/17 08:59 Anion Gap 16 (10-20) 10/28/17 08:59 BUN 22 mg/dL (7-21) H 10/28/17 08:59 Creatinine 0.9 mg/dl (0.7-1.2) 10/28/17 08:59 Est GFR ( Amer) > 60 10/28/17 08:59 Est GFR (Non-Af Amer) > 60 10/28/17 08:59 POC Glucose (mg/dL) 203 mg/dL (65-110) H 10/28/17 11:25 Random Glucose 164 mg/dL (70-110) H 10/28/17 08:59 Calcium 8.2 mg/dL (8.4-10.5) L 10/28/17 08:59 Phosphorus 3.6 mg/dL (2.5-4.5) 10/27/17 21:25 Magnesium 1.6 mg/dL (1.7-2.2) L 10/27/17 21:25 Total Bilirubin 0.2 mg/dL (0.2-1.3) 10/28/17 08:59 AST 41 U/L (14-36) H D 10/28/17 08:59 ALT 51 U/L (7-56) 10/28/17 08:59 Alkaline Phosphatase 53 U/L (38-126) 10/28/17 08:59 Total Protein 4.4 g/dL (5.8-8.3) L 10/28/17 08:59 Albumin 2.5 g/dL (3.0-4.8) L 10/28/17 08:59 Globulin 1.9 gm/dL 10/28/17 08:59 Albumin/Globulin Ratio 1.3 (1.1-1.8) 10/28/17 08:59 Lipase 68 U/L (23-300) 10/27/17 21:25 Urine Color Dark red (YELLOW) 10/27/17 21:30 Urine Appearance Turbid (CLEAR) 10/27/17 21:30 Urine pH 8.5 (4.7-8.0) 10/27/17 21:30 Ur Specific [place] 1.025 (1.005-1.035) 10/27/17 21:30 Urine Protein >=300 mg/dL (<30 mg/dL) H 10/27/17 21:30 Urine Glucose (UA) 250 mg/dL (NEGATIVE) H 10/27/17 21:30 Urine Ketones Negative mg/dL (NEGATIVE) 10/27/17 21:30 Urine Blood Large (NEGATIVE) H 10/27/17 21:30 Urine Nitrate Negative (NEGATIVE) 10/27/17 21:30 Urine Bilirubin Negative (NEGATIVE) 10/27/17 21:30 Urine Urobilinogen 0.2 E.U./dL (<1 E.U./dL) 10/27/17 21:30 Ur Leukocyte Esterase Trace Alexia/uL (NEGATIVE) H 10/27/17 21:30 Urine RBC Tntc /hpf (0-2) 10/27/17 21:30 Urine WBC 2 - 5 /hpf (0-6) 10/27/17 21:30 Ur Epithelial Cells 4 - 5 /hpf (0-5) 10/27/17 21:30 Attending/Attestation - Attestation I have personally seen and examined this patient.: Yes I have fully participated in the care of the patient.: Yes I have reviewed all pertinent clinical information, including history, physical exam and plan: Yes Notes (Text): 10/28/17 15:49 Attending note; Patient seen and examined with resident. Patient's mother by the bedside. 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 Currently admitted for pyelonephritis. Case discussed with oncologist at [place] in detail. Patient will be transferred to [place] for further care. Patient and family aware of the transfer plan. 10/28/17 17:33
[2017-10-28] MEDS ORDERED: HYDROmorphone 0.5 mg/0.5 ml ISec IVP STA (10:58)
[2017-10-28] MEDS ORDERED: Cefepime IV 2 gm in NS 2 GM/100 ML BAG IVPB SCH (12:45)
[2017-10-28 12:47] VITALS: BP 143/114; PULSE 122
== END 2017-10-28 13:19 | disposition short-term general hospital (02) ==
LOC: ED 19:46 → INTOOBSV 23:16 → ERH 23:16 → 5RNO 10-28 01:10
PROVIDERS: ADMIT Internal Medicine; ATTEND Internal Medicine
DX: N12 Tubulo-interstitial nephritis, not specified as acute or chronic (principal); C92.01 Acute myeloblastic leukemia, in remission; Z94.81 Bone marrow transplant status; I10 Essential (primary) hypertension; J45.909 Unspecified asthma, uncomplicated; R30.0 Dysuria; D25.9 Leiomyoma of uterus, unspecified; D69.6 Thrombocytopenia, unspecified; Z87.891 Personal history of nicotine dependence; Z92.21 Personal history of antineoplastic chemotherapy
CPT/HCPCS: 36415; 74176; 80053; 81001; 82948; 83690; 83735; 84100; 85025; 85730; 87040; 87086; 96361; 96365; 96375; 96376; 99284; C9113; G0378; J0696; J1170; J2270; J2405; J3475; J7040; J7507

== ENCOUNTER 2017-12-20 17:48 | Inpatient (IN) | payer MEDICARE, OTHER ==
[2017-12-20 18:08] VITALS: BMI 28.0
[2017-12-20] MEDS ORDERED: Iodixanol 320 MG/ML 100 ML BOTTLE IV ONE ×2 (18:45→19:06)
[2017-12-20 19:03] LABS: GRAN % 90.2 % (50.0-68.0); HEMOGLOBIN 12.8 g/dL (12.0-16.0); LYMPH # 0.3 (1.2-3.4); LYMPH % 6.3 % (22.0-35.0); MEAN CELL VOLUME 102.7 fl (80.0-105.0); MEAN CORPUSCULAR HEMOGLOBIN 34.7 pg (25.0-35.0); MEAN CORPUSCULAR HGB CONC 33.8 g/dl (31.0-37.0); MONO # 0.1 (0.1-0.6); MONO % 3.5 % (1.0-6.0); PLATELET COUNT 64 10^3/uL (120.0-450.0); RBC 3.69 10^6/uL (3.5-6.1); RED CELL DISTRIBUTION WIDTH 18.9 % (11.5-14.5)
[2017-12-20 19:09] LABS: INR 1.01 (0.93-1.08); PARTIAL THROMBOPLASTIN TIME 30.1 Seconds (25.1-36.5); PROTHROMBIN TIME 11.5 SECONDS (9.4-12.5)
[2017-12-20 19:14] LABS: ALB/GLOB RATIO 1.4 (1.1-1.8); ALBUMIN 3.5 g/dL (3.0-4.8); ALT/SGPT 20 U/L (7-56); AST/SGOT 42 U/L (14-36); BLOOD UREA NITROGEN 16 mg/dL (7-21); CALCIUM 8.5 mg/dL (8.4-10.5); GFR AFRICAN-AMERICAN > 60; GFR NON-AFRICAN AMERICAN 51
[2017-12-20 19:25] LABS: BAND 3 % (0-2); LYMPHOCYTE 8 % (22.0-35.0); METAMYELOCYTE 1 %; MONOCYTE 2 % (1.0-6.0); NEUTROPHIL 86 % (50.0-70.0); NUCLEATED RED BLOOD CELL 2 %
[2017-12-20 19:26] LABS: TROPONIN I 0.12 ng/mL
[2017-12-20 19:27] LABS: PLATELET ESTIMATE LOW (NORMAL)
[2017-12-20] MEDS: Heparin25000 units/250ml 1/2NS 25,000 UNITS/250 ML BAG IV PRN (19:47)
--- NOTE | 2017-12-20 19:57 | ED PDOC ---
Arrival/HPI - General Chief Complaint: Chest Pain Time Seen by Provider: 12/20/17 17:49 Historian: Patient, Parent - History of Present Illness Narrative History of Present Illness (Text): 12/20/17 21:10 Patient is a 37 yo female, past medical history of leukemia, past medical history of bone marrow transplant, past medical history of bilateral lower extremities diagnosed this morning at [facility], presents to the Emergency Department with history of "passing out twice" prior to arrival. Patient reportedly was evaluated by her oncologist at [facility] for a "routine check up " this morning. Patient had complained of bilateral leg pain for the past three days and they performed ultrasound studies this morning at [facility] which patient states revealed "blood clots in both legs". She reportedly received injection of Lovenox this morning at outside facility. She also states she received Rituxan infusion which she has had previously with no adverse effect. Mother states that approximately half hour prior to arrival "she was walking up the steps and was so tired, then passed out". Mother states "her eyes rolled back for a few seconds" but denies injury or trauma and patient became alert within a few seconds. Patient attempted to ambulated and "passed out again" for a few seconds. SHE DENIES ANY CHEST PAIN OR SHORTNESS OF BREATH. Denies headache. Denies numbness, tingling or weakness. Denies any visual symptoms. Denies any bleeding. She states she is comfortable lying on stretcher. Past Medical History - Past History Past History: No Previous - Infectious Disease Hx of Infectious Diseases: None - Tetanus Immunization Tetanus Immunization: Unknown - Reproductive Menopause: No - Cardiac Hx Cardiac Disorders: Yes Hx Hypertension: Yes Hx Pacemaker: No - Pulmonary Hx Respiratory Disorders: Yes Hx Asthma: Yes - Neurological Hx Neurological Disorder: No - HEENT Hx HEENT Disorder: No - Renal Hx Renal Disorder: No - Endocrine/Metabolic Hx Endocrine Disorders: No - Hematological/Oncological Hx Blood Disorders: Yes Hx Anemia: Yes Hx Chemotherapy: Yes (for AML started Apr 2015 at [facility] [place]) Hx Leukemia: Yes - Integumentary Hx Dermatological Disorder: No - Musculoskeletal/Rheumatological Hx Falls: No - Gastrointestinal Hx Gastrointestinal Disorders: No - Genitourinary/Gynecological Hx Sexually Transmitted Diseases: No Other/Comment: Hx fibroid uterus - Psychiatric Hx Psychophysiologic Disorder: Yes Hx Anxiety: Yes Hx Depression: No Hx Emotional Abuse: No Hx Panic Disorder: Yes Hx Physical Abuse: No Hx Substance Use: Yes (marijuana;STOPPED 01/2015) - Past Surgical History Past Surgical History: No Previous - Surgical History Other/Comment: Bone marrow transplant 5weeks ago from 10/21/2017 - Anesthesia Hx Anesthesia: Yes Hx Anesthesia Reactions: No Hx Malignant Hyperthermia: No - Suicidal Assessment Feels Threatened In Home Enviroment: No Family/Social History Family/Social History: Unknown Family HX Smoking Status: Former Smoker Hx Alcohol Use: Yes (SOCIAL;STOPPED 01/2015) Hx Substance Use: Yes (marijuana;STOPPED 01/2015) Substance used: marijuana Hx Substance Use Treatment: No Allergies/Home Meds Allergies/Adverse Reactions: Allergies lactose Adverse Reaction (Verified 10/27/17 20:04) DIARRHEA Home Medications: Home Meds Medication Instructions Recorded Confirmed Folic Acid 2 mg PO DAILY 10/21/17 12/20/17 Magnesium Amino Acid Chelate 399 mg PO TID 10/21/17 12/20/17 [Magnesium] Metoprolol Tartrate [Lopressor] 25 mg PO Q12H 10/21/17 12/20/17 Sulfamethoxazole/Trimethoprim 1 tab PO MWF 10/21/17 12/20/17 [Bactrim 400-80 mg Tablet] Tacrolimus [Prograf] 0.5 mg PO BID 10/21/17 12/20/17 Ursodiol [Actigall] 300 mg PO TID 10/21/17 12/20/17 oxyCODONE [oxyCODONE Immediate 5 mg PO Q4H PRN 10/21/17 12/20/17 Release Tab] Azithromycin [Zithromax] 300 mg PO DAILY 12/20/17 12/20/17 Diltiazem HCl [Cardizem] 30 mg PO TID 12/20/17 12/20/17 Enoxaparin [Lovenox] 80 mg SQ Q12 12/20/17 12/20/17 Sodium Bicarbonate 325 mg PO BID 12/20/17 12/20/17 predniSONE [Prednisone] 30 mg PO DAILY 12/20/17 12/20/17 valACYclovir [Valtrex] 500 mg PO BID 12/20/17 12/20/17 Review of Systems - Review of Systems Constitutional: Fatigue. absent: Fevers Eyes: absent: Vision Changes ENT: absent: Hearing Changes, Sore Throat, Epistaxis, Sinus Congestion Respiratory: absent: SOB, Cough, Wheezing Cardiovascular: Calf Pain, MARR, Syncope. absent: Chest Pain, Palpitations, Orthopnea Gastrointestinal: absent: Abdominal Pain, Nausea, Vomiting Genitourinary Female: absent: Dysuria, Hematuria Musculoskeletal: absent: Back Pain Skin: absent: Rash Neurological: absent: Headache, Dizziness, Focal Weakness, Gait Changes, Speech Changes, Facial Droop, Seizure Endocrine: absent: Polyuria Hemo/Lymphatic: absent: Easy Bleeding, Easy Bruising Physical Exam Vital Signs Reviewed: Yes Vital Signs Temp Pulse Resp BP Pulse Ox 12/20/17 19:52 123 H 18 124/91 H 98 12/20/17 17:54 98.1 F 138 H 22 120/86 100 Temperature: Afebrile Pulse: Tachycardic Respiratory Rate: Normal Appearance: Positive for: Other (appears anxious) Finger Stick Blood Glucose: 404 - Systems Exam Head: Present: Atraumatic Pupils: Present: PERRL Extroacular Muscles: Present: EOMI Conjunctiva: No: Injected Mouth: Present: Moist Mucous Membranes Pharnyx: No: ERYTHEMA Neck: Present: Normal Range of Motion. No: Meningeal Signs, JVD Respiratory/Chest: Present: Clear to Auscultation. No: Respiratory Distress Cardiovascular: Present: Murmurs, Peripheal Pulses Present, Tachycardic. No: Rub, Gallop, Muffled Abdomen: No: Tenderness, Distention Rectal: No: Gross Blood Upper Extremity: Present: NORMAL PULSES. No: Edema Lower Extremity: Present: CALF TENDERNESS, Tenderness, Neurovascularly Intact. No: Erythema Neurological: Present: CN II-XII Intact, Speech Normal, Motor Func Grossly Intact, Normal Sensory Function, Memory Normal Skin: Present: Warm Psychiatric: Present: Alert, Normal Insight, Normal Concentration Medical Decision Making ED Course and Treatment: 12/20/17 21:47 Patient seen immediately upon arrival. Patient's history supplemented by mother at bedside. Patient on initial examination DENIES any chest pain or shortness of breath. She is noted to be tachycardic. Blood pressure is stable. Oxygen saturations 100%. Not tachypneic. Patient is alert, oriented, with no slurred speech, no focal weakness. EKG obtained upon arrival reveals sinus tachycardia. St changes noted although pattern seems to be suggestive of pulmonary embolism pattern especially given her risk factors of history of leukemia as well as recently diagnosed DVT. EKG reviewed with oncall thiokol operator Dr. Nunez, based on history and exam, initial presentation NOT felt to be consistent with acute myocardial infarction. However , HIGH suspicion for pulmonary embolism given tachycardia, EKG pattern and recently diagnosed dvt. Patient reportedly received dose of Lovenox today at [facility]. I called patient's oncologist, spoke to covering practitioner who reviewed records and states patient received Lovenox 80 mg this morning. Family and patient updated with concern for PE. Based on presentation, eyeglass maker consulted to perform bedside echo, as well as Dr. Young Lerma, interventonal radiologist. Heparin drip ordered due to high suspicion for PE. I reviewed patient's labs from [facility], and reviewed current labs, treatment, platelet count with Dr. Wilkinson, on-call oncologist/traffic engineer, agrees with Heparin given patient's presentation. Patient closely monitored. She remains tachycardic but has NO HYPOTENSION with serial exams. Not tachypneic. Not hypoxic. CT angio reviewed by Dr. Monica Lerma and vrflex. Vrad reports bilateral pulmonary emboli and SADDLE EMBOLISM. Psychology Physician team updated with radiology reports. Patient re-examined with mother present. Blood pressure remains stable. She continues to deny any symptoms on stretcher. Continues to deny any chest pain or shortness of breath. Will admit to ICU. Interventional radiologist, cardiology, oncology/hematology, consulted. As patient with stable blood pressure and NO complaints with serial exams, will continue Heparin drip. Critical nature of patient's ct scan findings reviewed with patient and mother at bedside. Patient accepted to ICU. Care turned over to ICU team at 1930. 12/20/2017 20:[address] FINDINGS: Pulmonary arteries: There is a central saddle embolus. There are extensive emboli in the bilateral main pulmonary arteries. Emboli extend into the bilateral upper and lower lobe pulmonary arteries and also the lingular pulmonary artery. Aorta: Normal. No aortic aneurysm. No aortic dissection. Lungs: There is probable atelectasis/scar in the lungs. Pleural space: Normal. No pneumothorax. No pleural effusion. Heart: Cardiomegaly is identified. Bones/joints: Unremarkable. No acute fracture. Soft tissues: Unremarkable. Lymph nodes: Unremarkable. No enlarged lymph nodes. IMPRESSION: There is a central saddle embolus. There are extensive emboli in the bilateral pulmonary arteries. THIS REPORT CONTAINS FINDINGS THAT MAY BE CRITICAL TO PATIENT CARE. Dictator: Bria Carter MD 12/20/17 21:59 - Critical Care Critical Care Minutes: 60 minutes - Lab Interpretations Lab Results: 12/20/17 18:45 12/20/17 18:45 Lab Results 12/20/17 18:45: Sodium 138, Potassium 5.0, Chloride 103, Carbon Dioxide 20 L, Anion Gap 19, BUN 16, Creatinine 1.2, Est GFR ( Amer) > 60, Est GFR (Non- Af Amer) 51, Random Glucose 427 H* D, Calcium 8.5, Total Bilirubin 0.6, AST 42 H , ALT 20, Alkaline Phosphatase 89, Lactate Dehydrogenase 1125 H, Total Creatine Kinase 72, Troponin I 0.12 D, Total Protein 5.9, Albumin 3.5, Globulin 2.5, Albumin/Globulin Ratio 1.4 12/20/17 18:45: PT 11.5, INR 1.01, APTT 30.1, D-Dimer, Quantitative > 5250 H 12/20/17 18:45: WBC 4.0 L D, RBC 3.69, Hgb 12.8 D, Hct 37.9, MCV 102.7 D, MCH 34.7, MCHC 33.8, RDW 18.9 H, Plt Count 64 L, Gran % 90.2 H, Lymph % (Auto) 6.3 L , [place] % (Auto) 3.5, Eos % (Auto) 0.0 L, Baso % (Auto) 0.0, Gran # 3.60, Lymph # (Auto) 0.3 L, [place] # (Auto) 0.1, Eos # (Auto) 0.0, Baso # (Auto) 0.00, Neutrophils % (Manual) 86 H, Band Neutrophils % 3 H, Lymphocytes % (Manual) 8 L , Monocytes % (Manual) 2, Metamyelocytes % 1, Nucleated RBC % 2, Platelet Evaluation Low - RAD Interpretation Radiology Orders: 12/20/17 18:10 CHEST PORTABLE [RAD] Stat 12/20/17 18:13 ANGIO CHEST PE PROTOCOL [CT] Stat Business Development Sales Executive: Radiologist - EKG Interpretation EKG Interpretation (Text): EKG at 17:54 sinus tachycardia with right bundle branch block, s1, q3, t3 pattern Interpreted by ED Physician: Yes Type: 12 lead EKG - Medication Orders Current Medication Orders: Azithromycin (Zithromax) 250 mg PO Q96H [facility] PRN Reason: Protocol Last Admin: 12/20/17 21:17 Dose: 250 mg Dextrose (Dextrose 50% Inj) 0 ml IV STAT PRN; Protocol PRN Reason: Hypoglycemia Protocol Diltiazem HCl (Cardizem) 30 mg PO TID [facility] Folic Acid (Folic Acid) 2 mg PO DAILY [facility] Heparin Sodium/Sodium Chloride (Heparin 65222 Units/250ml 1/2 Normal Saline) 25 ,000 units in 250 mls @ 14.223 mls/hr IV .[id number] PRN; Protocol; 18 UNITS/KG/HR PRN Reason: ADJUST RATE PER PROTOCOL Last Admin: 12/20/17 19:47 Dose: 18 units/kg/hr, 14.223 mls/hr eMAR Start Stop Document 12/20/17 19:47 CNR (Rec: 12/20/17 19:47 CNR [id number]) Intravenous Solution Start Date 12/20/17 Start Time 19:47 Titration Intervention Document 12/20/17 19:47 CNR (Rec: 12/20/17 19:47 CNR [id number]) Titration Intake Waste Amount 0 Container Volume 250 Titration Dosing Titration Dose 18 IV Rate 14.223 Intake/Decrease Started Dextrose (Dextrose 5% In Water 1000 Ml) 1,000 mls @ 0 mls/hr IV .Q0M PRN; Protocol; Per Protocol PRN Reason: Hypoglycemia Protocol Insulin Human Lispro (Humalog Med) 0 units SC ACHS [facility] PRN Reason: Protocol Last Admin: 12/20/17 21:24 Dose: Not Given Non-Admin Reason: Blood Sugar Parameter MAR Blood Glucose Document 12/20/17 21:24 CNR (Rec: 12/20/17 21:24 CNR [id number]) Blood Glucose Finger Stick Blood Glucose (70-120) 282 Metoprolol Tartrate (Lopressor) 25 mg PO Q12H [facility] Last Admin: 12/20/17 21:17 Dose: 25 mg Non-Formulary Medication (Magnesium Amino Acid Chelate [Magnesium]) 266 mg PO TID [facility] Non-Formulary Medication (Posaconazole [Noxafil]) 300 mg PO DAILY [facility] Oxycodone HCl (Oxycodone Immediate Release Tab) 5 mg PO Q12H PRN PRN Reason: Pain, moderate (4-7) Oxycodone HCl (Oxycontin Extended Release Tab) 10 mg PO DAILY [facility] Pantoprazole Sodium (Protonix Ec Tab) 40 mg PO DAILY [facility] Polyethylene Glycol (Miralax) 17 gm PO DAILY [facility] Prednisone (Prednisone Tab) 30 mg PO BID [facility] Sodium Bicarbonate (Sodium Bicarbonate Tab) 325 mg PO BID [facility] Tacrolimus (Prograf Cap) 0.5 mg PO DIN [facility] Tacrolimus (Prograf Cap) 1 mg PO BRK [facility] Trimethoprim/Sulfamethoxazole (Bactrim Ds Tab) 1 tab PO MWF [facility] PRN Reason: Protocol Valacyclovir HCl (Valtrex) 500 mg PO BID [facility] PRN Reason: Protocol Disposition/Present on Arrival - Present on Arrival Any Indicators Present on Arrival: Yes History of DVT/PE: Yes History of Uncontrolled Diabetes: No Urinary Catheter: No History of Decub. Ulcer: No History Surgical Site Infection Following: None - Disposition Have Diagnosis and Disposition been Completed?: Yes Diagnosis: Pulmonary embolism, Saddle pulmonary embolus, Syncope, Hyperglycemia, Thrombocytopenia Disposition: HOSPITALIZED Disposition Time: 19:30 Patient Plan: Admission, ICU Patient Problems: Current Active Problems Problem Status Onset Hyperglycemia Acute Pulmonary embolism Acute Saddle pulmonary embolus Acute Syncope Acute Thrombocytopenia Acute Condition: CRITICAL
[2017-12-20 20:07] LABS: D DIMER > 5250 ng/mL (0-243)
[2017-12-20] MEDS ORDERED: Morphine 2 mg/ml ISec IVP PRN (20:44)
[2017-12-20] MEDS ORDERED: oxyCODONE 5 mg Immediate Release Tab PO PRN ×2 (20:44→21:07)
[2017-12-20] MEDS ORDERED: Dextrose 50% SYRINGE Inj (50 ml) IV PRN (21:14)
--- NOTE | 2017-12-20 21:22 | CP.PCM.HP ---
<Ari Reed - Last Filed: 12/20/17 22:45> History of Present Illness - History of Present Illness History of Present Illness: PGY-1 Admission History and Physical for Dr. 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 She first noticed a burning pain in her left calf about three days ago that has worsened. According to mother at bedside, she was unable to climb the stairs to get home this afternoon because of weakness and pain. Her mother called the patient's cancer center at [facility] Tuesday for this worsening calf pain. They believed her calf pain was due to her running out of pain medicine. The cancer center told patient's mother to give tylenol for the pain and that they would evaluate her Tuesday when she normally goes to the cancer center for Rituxan treatments. She went to the cancer center today and was told to go to [facility] ED. In the ED, they performed a LE doppler US and found a DVT. She received a dose of lovenox and was sent home with a prescription. Her mother was trying to help her climb the stairs back to their house when she had a near-syncopal episode and was hardly able to stand. This prompted her mother to bring her to the ED here. In the ED, CTA was performed and she was found to have bilateral PE's. Currently, her main complaint is left calf pain. Otherwise she denies fever, chills, night sweats, headache, vision changes, chest pain, SOB, cough, nausea/ vomiting/diarrhea, changes in urination, bowel/bladder incontinence, vaginal bleeding, numbness/tingling. PMD: Jojo Herron MD PMH: AML (s/p chemotherapy, bone marrow transplant in September), graft vs host disease, HTN, asthma, BK virus infection PSH: Bartholin gland cyst excision Allergies: NKDA Home Medications: most current list from cancer center reviewed with patient and mother. See MAR for list Fam Hx: DM2, HTN, multiple cancers Soc Hx: denies tobacco, alcohol, drug use. Currently lives with her mother and unemployed due to cancer treatments Present on Admission - Present on Admission Any Indicators Present on Admission: Yes History of DVT/PE: Yes History of Uncontrolled Diabetes: No Urinary Catheter: No Decubitus Ulcer Present: No Review of Systems - Review of Systems Review of Systems: A 12 point ROS was reviewed with patient and negative except as stated in HPI Past Patient History - Infectious Disease Hx of Infectious Diseases: None - Tetanus Immunizations Tetanus Immunization: Unknown - Past Social History Smoking Status: Former Smoker - CARDIAC Hx Cardiac Disorders: Yes Hx Hypertension: Yes Hx Pacemaker: No - PULMONARY Hx Respiratory Disorders: Yes Hx Asthma: Yes - NEUROLOGICAL Hx Neurological Disorder: No - HEENT Hx HEENT Problems: No - RENAL Hx Chronic Kidney Disease: No - ENDOCRINE/METABOLIC Hx Endocrine Disorders: No - HEMATOLOGICAL/ONCOLOGICAL Hx Blood Disorders: Yes Hx Anemia: Yes Hx Chemotherapy: Yes (for AML started Apr 2015 at [facility]) Hx Leukemia: Yes - INTEGUMENTARY Hx Dermatological Problems: No - MUSCULOSKELETAL/RHEUMATOLOGICAL Hx Falls: No - GASTROINTESTINAL Hx Gastrointestinal Disorders: No - GENITOURINARY/GYNECOLOGICAL Hx Sexually Transmitted Disorders: No Other/Comment: Hx fibroid uterus - PSYCHIATRIC Hx Psychophysiologic Disorder: Yes Hx Anxiety: Yes Hx Depression: No Hx Emotional Abuse: No Hx Panic Symptoms: Yes Hx Physical Abuse: No Hx Substance Use: Yes (marijuana;STOPPED 01/2015) - SURGICAL HISTORY Other/Comment: Bone marrow transplant 5weeks ago from 10/21/2017 - ANESTHESIA Hx Anesthesia: Yes Hx Anesthesia Reactions: No Hx Malignant Hyperthermia: No Meds Allergies/Adverse Reactions: Allergies Allergy/AdvReac Type Severity Reaction Status Date / Time lactose AdvReac DIARRHEA Verified 10/27/17 20:04 Physical Exam - Constitutional Appears: No Acute Distress Additional comments: In general, she is a/o x 3, in no acute distress, pleasant - Head Exam Head Exam: ATRAUMATIC, NORMAL INSPECTION, NORMOCEPHALIC - Eye Exam Eye Exam: Normal appearance, PERRL - ENT Exam ENT Exam: Mucous Membranes Dry - Neck Exam Neck exam: Positive for: Normal Inspection. Negative for: Tenderness, Thyromegaly - Respiratory Exam Respiratory Exam: Clear to Auscultation Bilateral. absent: Accessory Muscle Use , Chest Wall Tenderness, Decreased Breath Sounds, Rales, Rhonchi, Wheezes, Respiratory Distress - Cardiovascular Exam Cardiovascular Exam: Tachycardia, REGULAR RHYTHM, +S1, +S2. absent: Diastolic murmur, Gallop, Rubs, Systolic Murmur - GI/Abdominal Exam GI & Abdominal Exam: Normal Bowel Sounds, Soft. absent: Guarding, Organomegaly , Rebound, Tenderness - Extremities Exam Extremities exam: Positive for: calf tenderness, normal capillary refill, tenderness, pedal pulses present. Negative for: joint swelling, pedal edema - Neurological Exam Neurological exam: Alert, Oriented x3 - Psychiatric Exam Psychiatric exam: Anxious - Skin Skin Exam: Dry, Intact, Normal Color, Warm Results - Vital Signs Recent Vital Signs: Last Vital Signs Temp 98.1 F 12/20/17 17:54 Pulse 123 H 12/20/17 19:52 Resp 18 12/20/17 19:52 BP 124/91 H 12/20/17 19:52 Pulse Ox 98 12/20/17 19:52 - Labs Result Diagrams: 12/20/17 18:45 12/20/17 18:45 Labs: Laboratory Results - last 24 hr 12/20/17 19:35 Blood Type O POSITIVE Antibody Screen Negative BBK History Checked Patient has bt Assessment & Plan - Assessment and Plan (Free Text) Assessment: Ms. Card is a 37 year old female with PMH of AML (s/p chemotherapy, bone marrow transplant in September), graft vs host disease, HTN, asthma, and BK virus 2/ 2 bone marrow transplant found to have bilateral pulmonary embolisms on CTA in ED. 1. Bilateral Pulmonary Embolisms -Possibly secondary to DVT -DVT likely secondary to graft vs host disease, hx of AML -Heparin PE protocol started in ED, will continue -Will continue to monitor patient's respiratory status in ICU -Vascular surgery consulted, Dr. Lerma saw her in ED, agrees with plan -Dr. Wilkinson Heme/onc consulted. Recording Artist at [facility] is Dr. Zac Freed 2. Near syncopal episode -May be secondary to pain from DVT -Will complete syncope w/u - orthostatic VS, echo 3. Mildly elevated troponin -Likely secondary to b/l PEs, less likely cardiac etiology -Patient is already on Heparin PE protocol -Serial troponin Q6h x 2, repeat EKG x 2 -Cardiology consulted 4. Hyperglycemia -Likely secondary to steroid treatments vs uncontrolled diabetes -ISS with fingerstick ACHS -Hemoglobin A1c pending GI prophylaxis: Not indicated Case and plan were discussed in detail with attending Dr. Crystal Reed, DO IM Resident PGY-1 <Isabelle Rojas - Last Filed: 12/21/17 05:28> Results - Vital Signs Recent Vital Signs: Last Vital Signs Temp 97.0 F L 12/20/17 22:04 Pulse 116 H 12/20/17 22:31 Resp 20 12/20/17 22:31 BP 124/88 12/20/17 22:31 Pulse Ox 99 12/20/17 22:31 - Labs Result Diagrams: 12/20/17 18:45 12/20/17 18:45 Labs: Laboratory Results - last 24 hr 12/20/17 12/20/17 12/21/17 19:35 21:22 02:03 APTT POC Glucose (mg/dL) 282 H Troponin I 0.28 H* D Blood Type O POSITIVE Antibody Screen Negative BBK History Checked Patient has bt 12/21/17 02:03 APTT 69.5 H POC Glucose (mg/dL) Troponin I Blood Type Antibody Screen BBK History Checked Attending/Attestation - Attestation I have personally seen and examined this patient.: Yes I have fully participated in the care of the patient.: Yes I have reviewed all pertinent clinical information: Yes Notes (Text): 12/21/17 05:27 Patient was seen when she was in bed # 1 in the ER. Agree with history , physical examination, assessment and plan. Medical record was reviewed. CCT spent :30 minutes.
[2017-12-20] MEDS: Insulin Lispro (humaLOG) MEDIUM Coverage SC SCH (21:24)
[2017-12-21 06:23] LABS: ALB/GLOB RATIO 1.2 (1.1-1.8); ALBUMIN 3.3 g/dL (3.0-4.8); BASO # 0.01 K/mm3 (0.0-2.0); BASO % 0.1 % (0.0-3.0); CALCIUM 8.5 mg/dL (8.4-10.5); EOS % 0.3 % (1.5-5.0); GFR AFRICAN-AMERICAN > 60; GFR NON-AFRICAN AMERICAN 56; GRAN # 5.27 (1.4-6.5); GRAN % 76.1 % (50.0-68.0); HDL CHOLESTEROL 66 mg/dL (29-60); LYMPH # 0.8 (1.2-3.4); LYMPH % 12.1 % (22.0-35.0); MEAN CELL VOLUME 102.5 fl (80.0-105.0); MEAN CORPUSCULAR HEMOGLOBIN 34.4 pg (25.0-35.0); MEAN CORPUSCULAR HGB CONC 33.6 g/dl (31.0-37.0); MEAN PLATELET VOLUME 10.9 fl (7.0-11.0); MONO # 0.8 (0.1-0.6); MONO % 11.4 % (1.0-6.0); RBC 2.41 10^6/uL (3.5-6.1)
[2017-12-21 06:24] LABS: HEMOGLOBIN 8.3 g/dL (12.0-16.0); WHITE BLOOD COUNT 6.9 10^3/ul (4.5-11.0)
[2017-12-21 06:40] LABS: LDL CHOLESTEROL 94 mg/dL (0-129)
[2017-12-21 06:54] LABS: ALT/SGPT 16 U/L (7-56); AST/SGOT 34 U/L (14-36); BLOOD UREA NITROGEN 16 mg/dL (7-21); TROPONIN I 0.23 ng/mL
[2017-12-21] MEDS: Insulin Lispro (humaLOG) MEDIUM Coverage SC SCH ×4 (07:52→21:43)
--- NOTE | 2017-12-21 08:41 | RAD ---
Date of service: 12/20/2017 HISTORY: syncope COMPARISON: 04/19/2017 FINDINGS: LUNGS: No active pulmonary disease. PLEURA: No significant pleural effusion identified, no pneumothorax apparent. CARDIOVASCULAR: Normal. OSSEOUS STRUCTURES: No significant abnormalities. VISUALIZED UPPER ABDOMEN: Normal. OTHER FINDINGS: None. IMPRESSION: No active disease.
[2017-12-21] MEDS ORDERED: Magnesium 2 gm/50 ml NS 2 GM/50 ML BAG IVPB ONE (08:46)
--- NOTE | 2017-12-21 09:26 | CP.PCM.CON ---
History of Present Illness - History of Present Illness History of Present Illness: Yeny Anthony DO, PGY-2, Internal Medicine Resident, Hematology and Oncology Consult Note for Dr. 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 She had a work-up done at a hospital showing neutropenia and anemia with normal platelet counts. She had a bone marrow biopsy on 04/16/2015 showing expansion of abnormal myeloid cells accounting for about 65% of the total. Cells were positive for CD13, CD33, negative for CD 11, CD14, CD64, CD 56, CD 34, AND HLA- DR. CD117 expression was equivocal. These initial findings were interpreted as consistent with involvement by AML favoring APL. FISH and PML, PCR were pending so the patient was started on ATRA empirically. Once APL was ruled out sh with induction chemotherapy "7+3" (cytarabine and anthracycline) and obtained complete remission and proceeded to receive consolidation therapy with Cytaribine. In March 2017, however, she was found to have relapsed and treated with FLAG-Shonda salvage. The patient was conditioned for allogenic transplantation with Busulfan, Fludaribine, and Cyclophosphamide. On 09/16/17 ( day 0) she received stem cells from an HLA mismtached, ABO compatible, related donor. The donor tested positive for prior exposure to CMV. Total cell dose was 5.03 x 10e6 CD 34+ cells/kg. GVHD prophylaxis consisted of tacrolimus, mycophenolate mofetil, and cyclophosphamide. 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 She experienced modest GI toxicity and mucositis which was treated supportively. With filgrastim support, she achieved prompt hematological recovery, reaching an ANC> 500/mcL 13 days after transplant. 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 Also, she was treated with two doses of Rituximab for GVHD. Other important historical factors are that the patient was diagnosed in May 2015 with bilateral DVTs in the lower extremities for which she was treated with Xarelto. She did develop heavy bleeding from the vaginal area that required transfusion of blood products and hemodynamic instability requiring ICU admission here in [place]. She was subsequently taken off the Xarelto On this admission, the patient reports severe, throbbing pain since 2017 in her left calf. At baseline, she is unable to walk without assistance prior has been relatively immobile aside from undergoing physical therapy twice a week, which she does not attend to religiously. On the weekend the patient reports calling in the [facility] center, per protocol, in requesting to take Tylenol. The patient's pain persists and after her routine visit with the [facility] on Tuesday they recommended she go to the [facility] Emergency Department and get a lower extremity ultrasound which did show a DVT. The patient was given a 80 mg SC dose of Lovenox and prescribed Lovenox 80 mg SC BID and discharged. The patient however had two pre-syncopal episodes when going up the stairs to ehr apartment. Her mother was assisting her, which she normally does but given she collapsed at some point and does not recall the event she was brought immediately [facility] for further evaluation. In the emergency room she underwent a CTA which showed bilateral pulmonary emboli. She was also found to have a mildly elevated troponins, likely secondary to heart strain from pulmonary embolus. Patient was started on a therapeutic heparin drip, and hematology and oncology was consulted given the patient was relatively thrombocytopenic and has AML. The patient denies any fever, chills, chest pain, palpitations, dyspnea , dysuria, unilateral weakness or numbness, easy brusing or bleeding. She admits to sores in mouth and left calf pain at the time of my examination. PMH: asthma, hypertension, bilateral DVT's, AML, BK virus, graft versus host disease, vaginal bleeding PSH: bartholin gland cyst removal Allergies: Lactose Family History: DM II, hypertension, cataracts PMD: Jojo Herron MD Hematology and Oncology: Dr. Freed Review of Systems - Review of Systems All systems: reviewed and no additional remarkable complaints except Review of Systems: as per HPI - Constitutional Constitutional: absent: Daytime Sleepiness Past Patient History - Infectious Disease Hx of Infectious Diseases: None - Tetanus Immunizations Tetanus Immunization: Unknown - Past Social History Smoking Status: Former Smoker - CARDIAC Hx Cardiac Disorders: Yes Hx Hypertension: Yes Hx Pacemaker: No - PULMONARY Hx Respiratory Disorders: Yes Hx Asthma: Yes - NEUROLOGICAL Hx Neurological Disorder: No - HEENT Hx HEENT Problems: No - RENAL Hx Chronic Kidney Disease: No - ENDOCRINE/METABOLIC Hx Endocrine Disorders: No - HEMATOLOGICAL/ONCOLOGICAL Hx Blood Disorders: Yes Hx Anemia: Yes Hx Chemotherapy: Yes (for AML started Apr 2015 at [facility]) Hx Leukemia: Yes - INTEGUMENTARY Hx Dermatological Problems: No - MUSCULOSKELETAL/RHEUMATOLOGICAL Hx Falls: No - GASTROINTESTINAL Hx Gastrointestinal Disorders: No - GENITOURINARY/GYNECOLOGICAL Hx Sexually Transmitted Disorders: No Other/Comment: Hx fibroid uterus - PSYCHIATRIC Hx Psychophysiologic Disorder: Yes Hx Anxiety: Yes Hx Depression: No Hx Emotional Abuse: No Hx Panic Symptoms: Yes Hx Physical Abuse: No Hx Substance Use: Yes (marijuana;STOPPED 01/2015) - SURGICAL HISTORY Other/Comment: Bone marrow transplant 5weeks ago from 10/21/2017 - ANESTHESIA Hx Anesthesia: Yes Hx Anesthesia Reactions: No Hx Malignant Hyperthermia: No Meds Allergies/Adverse Reactions: Allergies Allergy/AdvReac Type Severity Reaction Status Date / Time lactose AdvReac DIARRHEA Verified 10/27/17 20:04 - Medications Medications: Current Medications Azithromycin (Zithromax) 250 mg PO Q96H [facility]GEL PRN Reason: Protocol Last Admin: 12/20/17 21:17 Dose: 250 mg Dextrose (Dextrose 50% Inj) 0 ml IV STAT PRN; Protocol PRN Reason: Hypoglycemia Protocol Diltiazem HCl (Cardizem) 30 mg PO TID ANGEL Folic Acid (Folic Acid) 2 mg PO DAILY [facility] Heparin Sodium/Sodium Chloride (Heparin 91699 Units/250ml 1/2 Normal Saline) 25 ,000 units in 250 mls @ 14.223 mls/hr IV .[id number] PRN; Protocol; 18 UNITS/KG/HR PRN Reason: ADJUST RATE PER PROTOCOL Last Admin: 12/20/17 19:47 Dose: 18 units/kg/hr, 14.223 mls/hr Dextrose (Dextrose 5% In Water 1000 Ml) 1,000 mls @ 0 mls/hr IV .Q0M PRN; Protocol; Per Protocol PRN Reason: Hypoglycemia Protocol Magnesium 2 gm/50 ml NS (Magnesium Sulfate 2 Gm/50 Ml Ns) 2 gm in 50 mls @ 50 mls/hr IVPB ONCE ONE Stop: 12/21/17 09:45 Insulin Human Lispro (Humalog Med) 0 units SC ACHS ANGEL PRN Reason: Protocol Last Admin: 12/21/17 07:52 Dose: 1 unit Metoprolol Tartrate (Lopressor) 25 mg PO Q12H [facility] Last Admin: 12/20/17 21:17 Dose: 25 mg Non-Formulary Medication (Magnesium Amino Acid Chelate [Magnesium]) 266 mg PO TID [facility] Non-Formulary Medication (Posaconazole [Noxafil]) 300 mg PO DAILY [facility] Oxycodone HCl (Oxycodone Immediate Release Tab) 5 mg PO Q12H PRN PRN Reason: Pain, moderate (4-7) Oxycodone HCl (Oxycontin Extended Release Tab) 10 mg PO DAILY [facility] Polyethylene Glycol (Miralax) 17 gm PO DAILY [facility] Prednisone (Prednisone Tab) 30 mg PO BID [facility] Sodium Bicarbonate (Sodium Bicarbonate Tab) 325 mg PO BID [facility] Tacrolimus (Prograf Cap) 0.5 mg PO DIN [facility] Tacrolimus (Prograf Cap) 1 mg PO BRK [facility] Last Admin: 12/21/17 07:53 Dose: 1 mg Trimethoprim/Sulfamethoxazole (Bactrim Ds Tab) 1 tab PO MWF [facility] PRN Reason: Protocol Trimethoprim/Sulfamethoxazole (Bactrim Ss Tab) 1 tab PO MWF [facility]EL PRN Reason: Protocol Ursodiol (Actigall) 300 mg PO TID [facility] Valacyclovir HCl (Valtrex) 500 mg PO BID [facility] PRN Reason: Protocol Physical Exam - Constitutional Appears: Non-toxic, No Acute Distress - Head Exam Additional comments: bald - Eye Exam Eye Exam: EOMI, Normal appearance - ENT Exam ENT Exam: Mucous Membranes Moist - Neck Exam Neck exam: Positive for: Normal Inspection - Respiratory Exam Respiratory Exam: Clear to Auscultation Bilateral. absent: Accessory Muscle Use - Cardiovascular Exam Cardiovascular Exam: Tachycardia, +S1, +S2 - GI/Abdominal Exam GI & Abdominal Exam: Normal Bowel Sounds, Soft - Extremities Exam Extremities exam: Positive for: normal inspection. Negative for: pedal edema - Neurological Exam Neurological exam: Alert, Oriented x3 - Psychiatric Exam Psychiatric exam: Normal Affect, Normal Mood - Skin Skin Exam: Dry, Intact, Normal Color, Warm Results - Vital Signs Recent Vital Signs: Last Vital Signs Temp 97.7 F 12/21/17 07:34 Pulse 100 H 12/21/17 07:34 Resp 21 12/21/17 07:34 BP 134/104 H 12/21/17 07:34 Pulse Ox 100 12/21/17 07:34 - Labs Result Diagrams: 12/21/17 05:30 12/21/17 05:30 Labs: Laboratory Results - last 24 hr 12/20/17 12/20/17 12/21/17 19:35 21:22 02:03 WBC RBC Hgb Hct MCV MCH MCHC RDW Plt Count MPV Gran % Lymph % (Auto) Dukes % (Auto) Eos % (Auto) Baso % (Auto) Gran # Lymph # (Auto) Dukes # (Auto) Eos # (Auto) Baso # (Auto) APTT Sodium Potassium Chloride Carbon Dioxide Anion Gap BUN Creatinine Est GFR ( Amer) Est GFR (Non-Af Amer) POC Glucose (mg/dL) 282 H Random Glucose Calcium Phosphorus Magnesium Total Bilirubin AST ALT Alkaline Phosphatase Troponin I 0.28 H* D Total Protein Albumin Globulin Albumin/Globulin Ratio Triglycerides Cholesterol LDL Cholesterol Direct HDL Cholesterol Blood Type O POSITIVE Antibody Screen Negative BBK History Checked Patient has bt 12/21/17 12/21/17 12/21/17 02:03 05:30 05:30 WBC 6.9 D RBC 2.41 L Hgb 8.3 L D Hct 24.7 L MCV 102.5 MCH 34.4 MCHC 33.6 RDW 19.0 H Plt Count 98 L MPV 10.9 Gran % 76.1 H Lymph % (Auto) 12.1 L Dukes % (Auto) 11.4 H Eos % (Auto) 0.3 L Baso % (Auto) 0.1 Gran # 5.27 Lymph # (Auto) 0.8 L Dukes # (Auto) 0.8 H Eos # (Auto) 0.0 Baso # (Auto) 0.01 APTT 69.5 H Sodium 140 Potassium 4.3 Chloride 107 Carbon Dioxide 23 Anion Gap 15 BUN 16 Creatinine 1.1 Est GFR ( Amer) > 60 Est GFR (Non-Af Amer) 56 POC Glucose (mg/dL) Random Glucose 165 H Calcium 8.5 Phosphorus Magnesium 1.5 L Total Bilirubin 0.4 AST 34 ALT 16 Alkaline Phosphatase 74 Troponin I 0.23 H* Total Protein 6.0 Albumin 3.3 Globulin 2.7 Albumin/Globulin Ratio 1.2 Triglycerides 281 H Cholesterol 196 LDL Cholesterol Direct 94 HDL Cholesterol 66 H Blood Type Antibody Screen BBK History Checked 12/21/17 12/21/17 05:30 07:22 WBC RBC Hgb Hct MCV MCH MCHC RDW Plt Count MPV Gran % Lymph % (Auto) Dukes % (Auto) Eos % (Auto) Baso % (Auto) Gran # Lymph # (Auto) Dukes # (Auto) Eos # (Auto) Baso # (Auto) APTT Sodium Potassium Chloride Carbon Dioxide Anion Gap BUN Creatinine Est GFR ( Amer) Est GFR (Non-Af Amer) POC Glucose (mg/dL) 179 H Random Glucose Calcium Phosphorus 3.1 Magnesium Total Bilirubin AST ALT Alkaline Phosphatase Troponin I Total Protein Albumin Globulin Albumin/Globulin Ratio Triglycerides Cholesterol LDL Cholesterol Direct HDL Cholesterol Blood Type Antibody Screen BBK History Checked Assessment & Plan - Assessment and Plan (Free Text) Assessment: 37 year old female with a past medical history of asthma, hypertension, AML diagnosed in April 2015 treated with the induction chemotherapy "7 + 3" with a complete remission obtained in September 2015 and relapse in May 2017 who was then treated with FLAG-Shonda salvage followed 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 She also has a history of bilateral DVTs and hemorhagic shock in June 2015 requiring transfusion of blood products in 2015 and ICU admission while the patient was on Xarelto. She currently presents with left calf pain and was found to have DVTs in the bilateral loer extremities and a saddle pulmonary embolus. She is on a therapeutic heparin drip. We Will reach out to her primary a hematology oncologist, Dr. Lino, as well as the [facility]. We will continue to follow up with the patient medications as of now are appropriate. Withhold estrogen oral contraceptives and we will add her MiraLAX for constipation. Otherwise, we will continue with close follow up and surveillance. Case was reviewed and discussed with attending physician, Dr. Wilkinson - Date & Time Date: 12/21/17 Time: 12:57
[2017-12-21] MEDS: POLYETHYLENE GLYCOL 3350 17 GM/Dose PACKET PO SCH (09:43)
[2017-12-21] MEDS ORDERED: Pantoprazole 40 mg EC Tab PO SCH (10:00)
[2017-12-21] MEDS ORDERED: Tmp-Smz 400 mg-80 mg SS Tab PO SCH (10:00)
[2017-12-21] MEDS ORDERED: oxyCODONE 20 mg ER Tab (oxyCONTIN) PO SCH (10:00)
[2017-12-21] MEDS ORDERED: POSACONAZOLE 300 MG PO SCH ×2 (10:00→17:00)
[2017-12-21] MEDS ORDERED: Tmp-Smz 800 mg-160 mg DS Tab PO SCH (10:00)
[2017-12-21] MEDS ORDERED: MAGNESIUM AMINO ACID CHELATE PO SCH ×2 (10:00→13:33)
--- NOTE | 2017-12-21 10:47 | CP.CCUPN ---
<Regis Fair - Last Filed: 12/21/17 11:49> CCU Subjective - Physician Review Subjective (Free Text): Regis Fair, PGY1 Critical Care Progress Note for Dr. Jeter Patient was seen and examined at bedside this morning. Family member was also present. Patient said that she is feeling okay. Denied fevers, chest pain, shortness of breath, abdominal pain, headache, dizziness, lightheadedness, pain in the upper and lower extremities. Patient currently on nasal canula and is saturating well. Full 12 point ROS was reviewed and unremarkable except as stated above. CCU Objective - Vital Signs / Intake & Output Vital Signs (Last 4 hours): Vital Signs Temp Pulse Resp BP Pulse Ox 12/21/17 09:45 102 H 122/94 H 12/21/17 09:43 97 H 122/94 H 12/21/17 07:34 97.7 F 100 H 21 134/104 H 100 Intake and Output (Last 8hrs): Intake & Output 12/20/17 12/21/17 12/21/17 22:59 06:59 14:59 Weight 78.925 kg - Physical Exam Head: Positive for: Atraumatic Pupils: Positive for: PERRL Extroacular Muscles: Positive for: EOMI Conjunctiva: Negative for: Injected Mouth: Positive for: Moist Mucous Membranes Pharnyx: Positive for: Normal Nose (External): Positive for: Other (Nasal canulla ) Neck: Positive for: Normal Range of Motion. Negative for: JVD Respiratory/Chest: Positive for: Clear to Auscultation. Negative for: Respiratory Distress, Accessory Muscle Use, Wheezes, Rales, Rhonchi Cardiovascular: Positive for: Regular Rate and Rhythm, Normal S1, S2, Peripheal Pulses Present. Negative for: Rub, Gallop Abdomen: Positive for: Normal Bowel Sounds. Negative for: Tenderness, Distention Rectal: Negative for: Gross Blood Upper Extremity: Positive for: NORMAL PULSES Lower Extremity: Positive for: NORMAL PULSES, Normal ROM. Negative for: Edema, CALF TENDERNESS, Cyanosis, Erythema Neurological: Positive for: Speech Normal, Motor Func Grossly Intact Skin: Positive for: Warm, Dry Psychiatric: Positive for: Alert, Oriented x 3 - Medications Active Medications: Active Medications Generic Name Dose Route Start Last Admin Trade Name Freq PRN Reason Stop Dose Admin Azithromycin 250 mg 12/20/17 21:15 07/10/18 21:17 Zithromax PO 250 mg Q96H ANGEL Administration Protocol Dextrose 0 ml 12/20/17 21:14 Dextrose 50% Inj IV STAT PRN Hypoglycemia Protocol Protocol Diltiazem HCl 30 mg 12/21/17 10:00 12/21/17 09:43 Cardizem PO 30 mg TID ANGEL Administration Folic Acid 2 mg 12/21/17 10:00 12/21/17 09:43 Folic Acid PO 2 mg DAILY ANGEL Administration Heparin Sodium/Sodium Chloride 25,000 units in 250 mls @ 14.223 mls/hr 18:45 12/20/17 19:47 Heparin 06696 Units/250ml 1/2 Normal Saline IV 18 units/kg/hr .[id number] PRN 14.223 mls/hr ADJUST RATE PER PROTOCOL Administration Protocol 18 UNITS/KG/HR Dextrose 1,000 mls @ 0 mls/hr 12/20/17 21:14 Dextrose 5% In Water 1000 Ml IV .Q0M PRN Hypoglycemia Protocol Protocol Per Protocol Insulin Human Lispro 0 units 12/20/17 22:00 12/21/17 07:52 Humalog Med SC 1 unit ACHS ANGEL Administration Protocol Metoprolol Tartrate 25 mg 12/20/17 20:45 12/21/17 09:45 Lopressor PO 25 mg Q12H ANGEL Administration Non-Formulary Medication 266 mg 12/21/17 10:00 Magnesium Amino Acid Chelate [Magnesium] PO TID ANGEL Non-Formulary Medication 300 mg 12/21/17 10:00 Posaconazole [Noxafil] PO DAILY [facility] Oxycodone HCl 5 mg 12/20/17 21:07 12/21/17 10:01 Oxycodone Immediate Release Tab PO 5 mg Q12H PRN Administration Pain, moderate (4-7) Oxycodone HCl 10 mg 12/21/17 10:00 12/21/17 10:22 Oxycontin Extended Release Tab PO Not Given DAILY [facility] Polyethylene Glycol 17 gm 12/21/17 10:00 12/21/17 09:43 Miralax PO 17 gm DAILY ANGEL Administration Prednisone 30 mg 12/21/17 10:00 12/21/17 09:42 Prednisone Tab PO 30 mg BID ANGEL Administration Sodium Bicarbonate 325 mg 12/21/17 10:00 12/21/17 09:42 Sodium Bicarbonate Tab PO 325 mg BID ANGEL Administration Tacrolimus 0.5 mg 12/21/17 17:00 Prograf Cap PO BRKDIN ANGEL Trimethoprim/Sulfamethoxazole 1 tab 12/21/17 10:00 12/21/17 10:10 Bactrim Ss Tab PO 1 tab MWF ANGEL Administration Protocol Ursodiol 300 mg 12/21/17 10:00 12/21/17 10:08 Actigall PO 300 mg TID ANGEL Administration Valacyclovir HCl 500 mg 12/21/17 10:00 12/21/17 10:30 Valtrex PO 500 mg BID ANGEL Administration Protocol - Patient Studies Lab Studies: Lab Studies 12/21/17 12/21/17 12/21/17 Range/Units 08:50 07:22 05:30 WBC (4.5-11.0) 10^3/ul RBC (3.5-6.1) 10^6/uL Hgb (12.0-16.0) g/dL Hct (36.0-48.0) % MCV (80.0-105.0) fl MCH (25.0-35.0) pg MCHC (31.0-37.0) g/dl RDW (11.5-14.5) % Plt Count (120.0-450.0) 10^3/uL MPV (7.0-11.0) fl Gran % (50.0-68.0) % Lymph % (Auto) (22.0-35.0) % Long % (Auto) (1.0-6.0) % Eos % (Auto) (1.5-5.0) % Baso % (Auto) (0.0-3.0) % Gran # (1.4-6.5) Lymph # (Auto) (1.2-3.4) Long # (Auto) (0.1-0.6) Eos # (Auto) (0.0-0.7) Baso # (Auto) (0.0-2.0) K/mm3 APTT 68.7 H (25.1-36.5) Seconds Sodium (132-148) mmol/L Potassium (3.6-5.0) mmol/L Chloride (98-107) mmol/L Carbon Dioxide (21-33) mmol/L Anion Gap (10-20) BUN (7-21) mg/dL Creatinine (0.7-1.2) mg/dl Est GFR ( Amer) Est GFR (Non-Af Amer) POC Glucose (mg/dL) 179 H (65-110) mg/dL Random Glucose (70-110) mg/dL Calcium (8.4-10.5) mg/dL Phosphorus 3.1 (2.5-4.5) mg/dL Magnesium (1.7-2.2) mg/dL Total Bilirubin (0.2-1.3) mg/dL AST (14-36) U/L ALT (7-56) U/L Alkaline Phosphatase (38-126) U/L Troponin I ng/mL Total Protein (5.8-8.3) g/dL Albumin (3.0-4.8) g/dL Globulin gm/dL Albumin/Globulin Ratio (1.1-1.8) Triglycerides (35-160) mg/dL Cholesterol (130-200) mg/dL LDL Cholesterol Direct (0-129) mg/dL HDL Cholesterol (29-60) mg/dL Blood Type Antibody Screen BBK History Checked 12/21/17 12/21/17 12/21/17 Range/Units 05:30 05:30 02:03 WBC 6.9 D (4.5-11.0) 10^3/ul RBC 2.41 L (3.5-6.1) 10^6/uL Hgb 8.3 L D (12.0-16.0) g/dL Hct 24.7 L (36.0-48.0) % MCV 102.5 (80.0-105.0) fl MCH 34.4 (25.0-35.0) pg MCHC 33.6 (31.0-37.0) g/dl RDW 19.0 H (11.5-14.5) % Plt Count 98 L (120.0-450.0) 10^3/uL MPV 10.9 (7.0-11.0) fl Gran % 76.1 H (50.0-68.0) % Lymph % (Auto) 12.1 L (22.0-35.0) % Long % (Auto) 11.4 H (1.0-6.0) % Eos % (Auto) 0.3 L (1.5-5.0) % Baso % (Auto) 0.1 (0.0-3.0) % Gran # 5.27 (1.4-6.5) Lymph # (Auto) 0.8 L (1.2-3.4) Long # (Auto) 0.8 H (0.1-0.6) Eos # (Auto) 0.0 (0.0-0.7) Baso # (Auto) 0.01 (0.0-2.0) K/mm3 APTT 69.5 H (25.1-36.5) Seconds Sodium 140 (132-148) mmol/L Potassium 4.3 (3.6-5.0) mmol/L Chloride 107 (98-107) mmol/L Carbon Dioxide 23 (21-33) mmol/L Anion Gap 15 (10-20) BUN 16 (7-21) mg/dL Creatinine 1.1 (0.7-1.2) mg/dl Est GFR ( Amer) > 60 Est GFR (Non-Af Amer) 56 POC Glucose (mg/dL) (65-110) mg/dL Random Glucose 165 H (70-110) mg/dL Calcium 8.5 (8.4-10.5) mg/dL Phosphorus (2.5-4.5) mg/dL Magnesium 1.5 L (1.7-2.2) mg/dL Total Bilirubin 0.4 (0.2-1.3) mg/dL AST 34 (14-36) U/L ALT 16 (7-56) U/L Alkaline Phosphatase 74 (38-126) U/L Troponin I 0.23 H* ng/mL Total Protein 6.0 (5.8-8.3) g/dL Albumin 3.3 (3.0-4.8) g/dL Globulin 2.7 gm/dL Albumin/Globulin Ratio 1.2 (1.1-1.8) Triglycerides 281 H (35-160) mg/dL Cholesterol 196 (130-200) mg/dL LDL Cholesterol Direct 94 (0-129) mg/dL HDL Cholesterol 66 H (29-60) mg/dL Blood Type Antibody Screen BBK History Checked 12/21/17 12/20/17 12/20/17 Range/Units 02:03 21:22 19:35 WBC (4.5-11.0) 10^3/ul RBC (3.5-6.1) 10^6/uL Hgb (12.0-16.0) g/dL Hct (36.0-48.0) % MCV (80.0-105.0) fl MCH (25.0-35.0) pg MCHC (31.0-37.0) g/dl RDW (11.5-14.5) % Plt Count (120.0-450.0) 10^3/uL MPV (7.0-11.0) fl Gran % (50.0-68.0) % Lymph % (Auto) (22.0-35.0) % Long % (Auto) (1.0-6.0) % Eos % (Auto) (1.5-5.0) % Baso % (Auto) (0.0-3.0) % Gran # (1.4-6.5) Lymph # (Auto) (1.2-3.4) Long # (Auto) (0.1-0.6) Eos # (Auto) (0.0-0.7) Baso # (Auto) (0.0-2.0) K/mm3 APTT (25.1-36.5) Seconds Sodium (132-148) mmol/L Potassium (3.6-5.0) mmol/L Chloride (98-107) mmol/L Carbon Dioxide (21-33) mmol/L Anion Gap (10-20) BUN (7-21) mg/dL Creatinine (0.7-1.2) mg/dl Est GFR ( Amer) Est GFR (Non-Af Amer) POC Glucose (mg/dL) 282 H (65-110) mg/dL Random Glucose (70-110) mg/dL Calcium (8.4-10.5) mg/dL Phosphorus (2.5-4.5) mg/dL Magnesium (1.7-2.2) mg/dL Total Bilirubin (0.2-1.3) mg/dL AST (14-36) U/L ALT (7-56) U/L Alkaline Phosphatase (38-126) U/L Troponin I 0.28 H* D ng/mL Total Protein (5.8-8.3) g/dL Albumin (3.0-4.8) g/dL Globulin gm/dL Albumin/Globulin Ratio (1.1-1.8) Triglycerides (35-160) mg/dL Cholesterol (130-200) mg/dL LDL Cholesterol Direct (0-129) mg/dL HDL Cholesterol (29-60) mg/dL Blood Type O POSITIVE Antibody Screen Negative BBK History Checked Patient has bt Laboratory Results - last 24 hr 12/20/17 12/20/17 12/21/17 19:35 21:22 02:03 WBC RBC Hgb Hct MCV MCH MCHC RDW Plt Count MPV Gran % Lymph % (Auto) Long % (Auto) Eos % (Auto) Baso % (Auto) Gran # Lymph # (Auto) Long # (Auto) Eos # (Auto) Baso # (Auto) APTT Sodium Potassium Chloride Carbon Dioxide Anion Gap BUN Creatinine Est GFR ( Amer) Est GFR (Non-Af Amer) POC Glucose (mg/dL) 282 H Random Glucose Calcium Phosphorus Magnesium Total Bilirubin AST ALT Alkaline Phosphatase Troponin I 0.28 H* D Total Protein Albumin Globulin Albumin/Globulin Ratio Triglycerides Cholesterol LDL Cholesterol Direct HDL Cholesterol Blood Type O POSITIVE Antibody Screen Negative BBK History Checked Patient has bt 12/21/17 12/21/17 12/21/17 02:03 05:30 05:30 WBC 6.9 D RBC 2.41 L Hgb 8.3 L D Hct 24.7 L MCV 102.5 MCH 34.4 MCHC 33.6 RDW 19.0 H Plt Count 98 L MPV 10.9 Gran % 76.1 H Lymph % (Auto) 12.1 L Long % (Auto) 11.4 H Eos % (Auto) 0.3 L Baso % (Auto) 0.1 Gran # 5.27 Lymph # (Auto) 0.8 L Long # (Auto) 0.8 H Eos # (Auto) 0.0 Baso # (Auto) 0.01 APTT 69.5 H Sodium 140 Potassium 4.3 Chloride 107 Carbon Dioxide 23 Anion Gap 15 BUN 16 Creatinine 1.1 Est GFR ( Amer) > 60 Est GFR (Non-Af Amer) 56 POC Glucose (mg/dL) Random Glucose 165 H Calcium 8.5 Phosphorus Magnesium 1.5 L Total Bilirubin 0.4 AST 34 ALT 16 Alkaline Phosphatase 74 Troponin I 0.23 H* Total Protein 6.0 Albumin 3.3 Globulin 2.7 Albumin/Globulin Ratio 1.2 Triglycerides 281 H Cholesterol 196 LDL Cholesterol Direct 94 HDL Cholesterol 66 H Blood Type Antibody Screen BBK History Checked 12/21/17 12/21/17 12/21/17 05:30 07:22 08:50 WBC RBC Hgb Hct MCV MCH MCHC RDW Plt Count MPV Gran % Lymph % (Auto) Long % (Auto) Eos % (Auto) Baso % (Auto) Gran # Lymph # (Auto) Long # (Auto) Eos # (Auto) Baso # (Auto) APTT 68.7 H Sodium Potassium Chloride Carbon Dioxide Anion Gap BUN Creatinine Est GFR ( Amer) Est GFR (Non-Af Amer) POC Glucose (mg/dL) 179 H Random Glucose Calcium Phosphorus 3.1 Magnesium Total Bilirubin AST ALT Alkaline Phosphatase Troponin I Total Protein Albumin Globulin Albumin/Globulin Ratio Triglycerides Cholesterol LDL Cholesterol Direct HDL Cholesterol Blood Type Antibody Screen BBK History Checked EKG/Cardiology Studies: Cardiology / EKG Studies 12/21/17 01:00 EKG [ELECTROCARDIOGRAM] Q6H Comment: Reason For Exam: PE 12/21/17 04:24 EKG [ELECTROCARDIOGRAM] Stat Comment: Reason For Exam: abnormal prior ekg 12/21/17 07:00 EKG [ELECTROCARDIOGRAM] Q6H Comment: Reason For Exam: PE Fingerstick Blood Sugar Results: 179 Review of Systems - Review of Systems All systems: reviewed and no additional remarkable complaints except (as per HPI ) Critical Care Progress Note - Extremities/Vascular Does the Patient have a Central Venous Catheter?: No Does the Patient need a Central Venous Catheter?: No Does the Patient have a Velasco Catheter?: No Does the Patient need a Velasco Catheter?: No - Prophylaxis GI Prophylaxis GI: Off PPI ppx at this time due to heparin drip - Prophylaxis DVT Prophylaxis DVT: Not Indicated (Already on heparin gtt) - Nutrition Nutrition: Nutrition Category Date Time Status Diabetic [Consistent Carbohydrate] [DIET] Diets 12/21/17 Breakfast Ordered Assessment/Plan - Assessment and Plan (Free Text) Assessment: Patient is a 37 y/o F with PMHx of AML (s/p chemotherapy, 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 Patient was having weakness and was unable to climb stairs at home. Patient went to [facility] and was discharged on Lovenox 80 mg after performing a LE doppler US showing DVT. Patient was not improving and was brought into the ED by her mother. CTA was done and showed saddle embolism. Patient is currently under ICU management for saddle embolism and started on heparin gtt. Patient is being followed by cardiology, heme/onc, and IR. Currently, patient has been denying chest pain, shortness of breath, and lower extremity tenderness. Plan: Neuro: - no syncopal episodes since admission - f/u ECHO - Maintain normothermia Pulm: - Currently on nasal canula, saturating well - CTA (12/20): saddle embolus as well as extensive emboli in pulmonary arteries bilaterally lower and upper lobes - Managing PE with Heparin gtt 25,000 units - Maintain SaO2 > 92% Cardio: - EKG (12/21): sinus tachy, no ST elevations or T wave inversions - c/w Lopressor for rate control - c/w Diltiazem for rate control and BP management - Elevated troponins likely 2/2 PE and not cardiac in origin - f/u ECHO - Cardiology consulted - Maintain MAP > 65 GI: - No GI ppx is indicated at this time - c/w Ursodiol - Diabetic diet Renal: - Replete lytes as needed Heme: - c/w Heparin gtt 25,000 units - SCDs contraindicated at this time due to DVTs - c/w AML meds: Tacrolimus, Folic acid, oxycodone for pain - Patient on control meds at home: advise to discontinue due to hypercoaguability - Heme/Onc consulted ID: - No active infections at this time - c/w azithromycin/Bactrim for prophylaxis of opportunistic infections in immunocompromised patient Endo: - Elevated blood sugars - ISS - Accucheck ACHS Dispo: Patient is still under ICU management for management of saddle embolism. Case was dicussed and reviewed with Attending Physician Dr. Jeter. <Yassine Jeter - Last Filed: 12/21/17 12:11> CCU Objective - Vital Signs / Intake & Output Vital Signs (Last 4 hours): Vital Signs Pulse BP 12/21/17 10:00 94 H 12/21/17 09:45 102 H 122/94 H 12/21/17 09:43 97 H 122/94 H Intake and Output (Last 8hrs): Intake & Output 12/20/17 12/21/17 12/21/17 22:59 06:59 14:59 Output Total 1 Balance -1 Weight 174 lb Output: Stool 1 Other: # Voids Urine, Voided 1 - Medications Active Medications: Active Medications Generic Name Dose Route Start Last Admin Trade Name Freq PRN Reason Stop Dose Admin Azithromycin 250 mg 12/26/17 10:00 Zithromax PO MON ANGEL Protocol Azithromycin 250 mg 12/23/17 10:00 Zithromax PO FRI [facility] Protocol Dextrose 0 ml 12/20/17 21:14 Dextrose 50% Inj IV STAT PRN Hypoglycemia Protocol Protocol Diltiazem HCl 30 mg 12/21/17 10:00 12/21/17 09:43 Cardizem PO 30 mg TID ANGEL Administration Folic Acid 2 mg 12/21/17 10:00 12/21/17 09:43 Folic Acid PO 2 mg DAILY ANGEL Administration Heparin Sodium/Sodium Chloride 25,000 units in 250 mls @ 14.223 mls/hr 18:45 12/20/17 19:47 Heparin 39243 Units/250ml 1/2 Normal Saline IV 18 units/kg/hr .[id number] PRN 14.223 mls/hr ADJUST RATE PER PROTOCOL Administration Protocol 18 UNITS/KG/HR Dextrose 1,000 mls @ 0 mls/hr 12/20/17 21:14 Dextrose 5% In Water 1000 Ml IV .Q0M PRN Hypoglycemia Protocol Protocol Per Protocol Insulin Human Lispro 0 units 12/20/17 22:00 12/21/17 07:52 Humalog Med SC 1 unit ACHS ANGEL Administration Protocol Metoprolol Tartrate 25 mg 12/20/17 20:45 12/21/17 09:45 Lopressor PO 25 mg Q12H ANGEL Administration Non-Formulary Medication 266 mg 12/21/17 10:00 12/21/17 10:42 Magnesium Amino Acid Chelate [Magnesium] PO Not Given TID ANGEL Non-Formulary Medication 300 mg 12/21/17 10:00 12/21/17 10:42 Posaconazole [Noxafil] PO Not Given DAILY [facility] Oxycodone HCl 5 mg 12/20/17 21:07 07/11/18 10:01 Oxycodone Immediate Release Tab PO 5 mg Q12H PRN Administration Pain, moderate (4-7) Oxycodone HCl 10 mg 12/21/17 10:00 12/21/17 10:22 Oxycontin Extended Release Tab PO Not Given DAILY ANGEL Pantoprazole Sodium 40 mg 12/21/17 10:45 Protonix Ec Tab PO DAILY ANGEL Polyethylene Glycol 17 gm 12/21/17 10:00 12/21/17 09:43 Miralax PO 17 gm DAILY ANGEL Administration Prednisone 30 mg 12/22/17 10:00 Prednisone Tab PO DAILY ANGEL Sodium Bicarbonate 325 mg 12/21/17 10:00 12/21/17 09:42 Sodium Bicarbonate Tab PO 325 mg BID ANGEL Administration Tacrolimus 0.5 mg 12/21/17 17:00 Prograf Cap PO BRKDIN ANGEL Trimethoprim/Sulfamethoxazole 1 tab 12/21/17 10:00 12/21/17 10:10 Bactrim Ss Tab PO 1 tab MWF ANGEL Administration Protocol Ursodiol 300 mg 12/21/17 10:00 12/21/17 10:08 Actigall PO 300 mg TID ANGEL Administration Valacyclovir HCl 500 mg 12/21/17 10:00 12/21/17 10:30 Valtrex PO 500 mg BID ANGEL Administration Protocol - Patient Studies Lab Studies: Lab Studies 12/21/17 12/21/17 12/21/17 Range/Units 11:18 08:50 07:22 WBC (4.5-11.0) 10^3/ul RBC (3.5-6.1) 10^6/uL Hgb (12.0-16.0) g/dL Hct (36.0-48.0) % MCV (80.0-105.0) fl MCH (25.0-35.0) pg MCHC (31.0-37.0) g/dl RDW (11.5-14.5) % Plt Count (120.0-450.0) 10^3/uL MPV (7.0-11.0) fl Gran % (50.0-68.0) % Lymph % (Auto) (22.0-35.0) % Long % (Auto) (1.0-6.0) % Eos % (Auto) (1.5-5.0) % Baso % (Auto) (0.0-3.0) % Gran # (1.4-6.5) Lymph # (Auto) (1.2-3.4) Long # (Auto) (0.1-0.6) Eos # (Auto) (0.0-0.7) Baso # (Auto) (0.0-2.0) K/mm3 APTT 68.7 H (25.1-36.5) Seconds Sodium (132-148) mmol/L Potassium (3.6-5.0) mmol/L Chloride (98-107) mmol/L Carbon Dioxide (21-33) mmol/L Anion Gap (10-20) BUN (7-21) mg/dL Creatinine (0.7-1.2) mg/dl Est GFR ( Amer) Est GFR (Non-Af Amer) POC Glucose (mg/dL) 126 H 179 H (65-110) mg/dL Random Glucose (70-110) mg/dL Calcium (8.4-10.5) mg/dL Phosphorus (2.5-4.5) mg/dL Magnesium (1.7-2.2) mg/dL Total Bilirubin (0.2-1.3) mg/dL AST (14-36) U/L ALT (7-56) U/L Alkaline Phosphatase (38-126) U/L Troponin I ng/mL Total Protein (5.8-8.3) g/dL Albumin (3.0-4.8) g/dL Globulin gm/dL Albumin/Globulin Ratio (1.1-1.8) Triglycerides (35-160) mg/dL Cholesterol (130-200) mg/dL LDL Cholesterol Direct (0-129) mg/dL HDL Cholesterol (29-60) mg/dL Blood Type Antibody Screen BBK History Checked 12/21/17 12/21/17 12/21/17 Range/Units 05:30 05:30 05:30 WBC 6.9 D (4.5-11.0) 10^3/ul RBC 2.41 L (3.5-6.1) 10^6/uL Hgb 8.3 L D (12.0-16.0) g/dL Hct 24.7 L (36.0-48.0) % MCV 102.5 (80.0-105.0) fl MCH 34.4 (25.0-35.0) pg MCHC 33.6 (31.0-37.0) g/dl RDW 19.0 H (11.5-14.5) % Plt Count 98 L (120.0-450.0) 10^3/uL MPV 10.9 (7.0-11.0) fl Gran % 76.1 H (50.0-68.0) % Lymph % (Auto) 12.1 L (22.0-35.0) % Long % (Auto) 11.4 H (1.0-6.0) % Eos % (Auto) 0.3 L (1.5-5.0) % Baso % (Auto) 0.1 (0.0-3.0) % Gran # 5.27 (1.4-6.5) Lymph # (Auto) 0.8 L (1.2-3.4) Long # (Auto) 0.8 H (0.1-0.6) Eos # (Auto) 0.0 (0.0-0.7) Baso # (Auto) 0.01 (0.0-2.0) K/mm3 APTT (25.1-36.5) Seconds Sodium 140 (132-148) mmol/L Potassium 4.3 (3.6-5.0) mmol/L Chloride 107 (98-107) mmol/L Carbon Dioxide 23 (21-33) mmol/L Anion Gap 15 (10-20) BUN 16 (7-21) mg/dL Creatinine 1.1 (0.7-1.2) mg/dl Est GFR ( Amer) > 60 Est GFR (Non-Af Amer) 56 POC Glucose (mg/dL) (65-110) mg/dL Random Glucose 165 H (70-110) mg/dL Calcium 8.5 (8.4-10.5) mg/dL Phosphorus 3.1 (2.5-4.5) mg/dL Magnesium 1.5 L (1.7-2.2) mg/dL Total Bilirubin 0.4 (0.2-1.3) mg/dL AST 34 (14-36) U/L ALT 16 (7-56) U/L Alkaline Phosphatase 74 (38-126) U/L Troponin I 0.23 H* ng/mL Total Protein 6.0 (5.8-8.3) g/dL Albumin 3.3 (3.0-4.8) g/dL Globulin 2.7 gm/dL Albumin/Globulin Ratio 1.2 (1.1-1.8) Triglycerides 281 H (35-160) mg/dL Cholesterol 196 (130-200) mg/dL LDL Cholesterol Direct 94 (0-129) mg/dL HDL Cholesterol 66 H (29-60) mg/dL Blood Type Antibody Screen BBK History Checked 12/21/17 12/21/17 12/20/17 Range/Units 02:03 02:03 21:22 WBC (4.5-11.0) 10^3/ul RBC (3.5-6.1) 10^6/uL Hgb (12.0-16.0) g/dL Hct (36.0-48.0) % MCV (80.0-105.0) fl MCH (25.0-35.0) pg MCHC (31.0-37.0) g/dl RDW (11.5-14.5) % Plt Count (120.0-450.0) 10^3/uL MPV (7.0-11.0) fl Gran % (50.0-68.0) % Lymph % (Auto) (22.0-35.0) % Long % (Auto) (1.0-6.0) % Eos % (Auto) (1.5-5.0) % Baso % (Auto) (0.0-3.0) % Gran # (1.4-6.5) Lymph # (Auto) (1.2-3.4) Long # (Auto) (0.1-0.6) Eos # (Auto) (0.0-0.7) Baso # (Auto) (0.0-2.0) K/mm3 APTT 69.5 H (25.1-36.5) Seconds Sodium (132-148) mmol/L Potassium (3.6-5.0) mmol/L Chloride (98-107) mmol/L Carbon Dioxide (21-33) mmol/L Anion Gap (10-20) BUN (7-21) mg/dL Creatinine (0.7-1.2) mg/dl Est GFR ( Amer) Est GFR (Non-Af Amer) POC Glucose (mg/dL) 282 H (65-110) mg/dL Random Glucose (70-110) mg/dL Calcium (8.4-10.5) mg/dL Phosphorus (2.5-4.5) mg/dL Magnesium (1.7-2.2) mg/dL Total Bilirubin (0.2-1.3) mg/dL AST (14-36) U/L ALT (7-56) U/L Alkaline Phosphatase (38-126) U/L Troponin I 0.28 H* D ng/mL Total Protein (5.8-8.3) g/dL Albumin (3.0-4.8) g/dL Globulin gm/dL Albumin/Globulin Ratio (1.1-1.8) Triglycerides (35-160) mg/dL Cholesterol (130-200) mg/dL LDL Cholesterol Direct (0-129) mg/dL HDL Cholesterol (29-60) mg/dL Blood Type Antibody Screen BBK History Checked 12/20/17 Range/Units 19:35 WBC (4.5-11.0) 10^3/ul RBC (3.5-6.1) 10^6/uL Hgb (12.0-16.0) g/dL Hct (36.0-48.0) % MCV (80.0-105.0) fl MCH (25.0-35.0) pg MCHC (31.0-37.0) g/dl RDW (11.5-14.5) % Plt Count (120.0-450.0) 10^3/uL MPV (7.0-11.0) fl Gran % (50.0-68.0) % Lymph % (Auto) (22.0-35.0) % Long % (Auto) (1.0-6.0) % Eos % (Auto) (1.5-5.0) % Baso % (Auto) (0.0-3.0) % Gran # (1.4-6.5) Lymph # (Auto) (1.2-3.4) Long # (Auto) (0.1-0.6) Eos # (Auto) (0.0-0.7) Baso # (Auto) (0.0-2.0) K/mm3 APTT (25.1-36.5) Seconds Sodium (132-148) mmol/L Potassium (3.6-5.0) mmol/L Chloride (98-107) mmol/L Carbon Dioxide (21-33) mmol/L Anion Gap (10-20) BUN (7-21) mg/dL Creatinine (0.7-1.2) mg/dl Est GFR ( Amer) Est GFR (Non-Af Amer) POC Glucose (mg/dL) (65-110) mg/dL Random Glucose (70-110) mg/dL Calcium (8.4-10.5) mg/dL Phosphorus (2.5-4.5) mg/dL Magnesium (1.7-2.2) mg/dL Total Bilirubin (0.2-1.3) mg/dL AST (14-36) U/L ALT (7-56) U/L Alkaline Phosphatase (38-126) U/L Troponin I ng/mL Total Protein (5.8-8.3) g/dL Albumin (3.0-4.8) g/dL Globulin gm/dL Albumin/Globulin Ratio (1.1-1.8) Triglycerides (35-160) mg/dL Cholesterol (130-200) mg/dL LDL Cholesterol Direct (0-129) mg/dL HDL Cholesterol (29-60) mg/dL Blood Type O POSITIVE Antibody Screen Negative BBK History Checked Patient has bt Laboratory Results - last 24 hr 12/20/17 12/20/17 12/21/17 19:35 21:22 02:03 WBC RBC Hgb Hct MCV MCH MCHC RDW Plt Count MPV Gran % Lymph % (Auto) Long % (Auto) Eos % (Auto) Baso % (Auto) Gran # Lymph # (Auto) Long # (Auto) Eos # (Auto) Baso # (Auto) APTT Sodium Potassium Chloride Carbon Dioxide Anion Gap BUN Creatinine Est GFR ( Amer) Est GFR (Non-Af Amer) POC Glucose (mg/dL) 282 H Random Glucose Calcium Phosphorus Magnesium Total Bilirubin AST ALT Alkaline Phosphatase Troponin I 0.28 H* D Total Protein Albumin Globulin Albumin/Globulin Ratio Triglycerides Cholesterol LDL Cholesterol Direct HDL Cholesterol Blood Type O POSITIVE Antibody Screen Negative BBK History Checked Patient has bt 12/21/17 12/21/17 12/21/17 02:03 05:30 05:30 WBC 6.9 D RBC 2.41 L Hgb 8.3 L D Hct 24.7 L MCV 102.5 MCH 34.4 MCHC 33.6 RDW 19.0 H Plt Count 98 L MPV 10.9 Gran % 76.1 H Lymph % (Auto) 12.1 L Long % (Auto) 11.4 H Eos % (Auto) 0.3 L Baso % (Auto) 0.1 Gran # 5.27 Lymph # (Auto) 0.8 L Long # (Auto) 0.8 H Eos # (Auto) 0.0 Baso # (Auto) 0.01 APTT 69.5 H Sodium 140 Potassium 4.3 Chloride 107 Carbon Dioxide 23 Anion Gap 15 BUN 16 Creatinine 1.1 Est GFR ( Amer) > 60 Est GFR (Non-Af Amer) 56 POC Glucose (mg/dL) Random Glucose 165 H Calcium 8.5 Phosphorus Magnesium 1.5 L Total Bilirubin 0.4 AST 34 ALT 16 Alkaline Phosphatase 74 Troponin I 0.23 H* Total Protein 6.0 Albumin 3.3 Globulin 2.7 Albumin/Globulin Ratio 1.2 Triglycerides 281 H Cholesterol 196 LDL Cholesterol Direct 94 HDL Cholesterol 66 H Blood Type Antibody Screen BBK History Checked 12/21/17 12/21/17 12/21/17 05:30 07:22 08:50 WBC RBC Hgb Hct MCV MCH MCHC RDW Plt Count MPV Gran % Lymph % (Auto) Long % (Auto) Eos % (Auto) Baso % (Auto) Gran # Lymph # (Auto) Long # (Auto) Eos # (Auto) Baso # (Auto) APTT 68.7 H Sodium Potassium Chloride Carbon Dioxide Anion Gap BUN Creatinine Est GFR ( Amer) Est GFR (Non-Af Amer) POC Glucose (mg/dL) 179 H Random Glucose Calcium Phosphorus 3.1 Magnesium Total Bilirubin AST ALT Alkaline Phosphatase Troponin I Total Protein Albumin Globulin Albumin/Globulin Ratio Triglycerides Cholesterol LDL Cholesterol Direct HDL Cholesterol Blood Type Antibody Screen BBK History Checked 12/21/17 11:18 WBC RBC Hgb Hct MCV MCH MCHC RDW Plt Count MPV Gran % Lymph % (Auto) Long % (Auto) Eos % (Auto) Baso % (Auto) Gran # Lymph # (Auto) Long # (Auto) Eos # (Auto) Baso # (Auto) APTT Sodium Potassium Chloride Carbon Dioxide Anion Gap BUN Creatinine Est GFR ( Amer) Est GFR (Non-Af Amer) POC Glucose (mg/dL) 126 H Random Glucose Calcium Phosphorus Magnesium Total Bilirubin AST ALT Alkaline Phosphatase Troponin I Total Protein Albumin Globulin Albumin/Globulin Ratio Triglycerides Cholesterol LDL Cholesterol Direct HDL Cholesterol Blood Type Antibody Screen BBK History Checked EKG/Cardiology Studies: Cardiology / EKG Studies 12/21/17 01:00 EKG [ELECTROCARDIOGRAM] Q6H Comment: Reason For Exam: PE 12/21/17 04:24 EKG [ELECTROCARDIOGRAM] Stat Comment: Reason For Exam: abnormal prior ekg 12/21/17 07:00 EKG [ELECTROCARDIOGRAM] Q6H Comment: Reason For Exam: PE Critical Care Progress Note - Nutrition Nutrition: Nutrition Category Date Time Status Diabetic [Consistent Carbohydrate] [DIET] Diets 12/21/17 Breakfast Ordered Assessment/Plan - Assessment and Plan (Free Text) Plan: Patient seen and examined on rounds with resident, agree with note with following additions/exceptions: Patient is a 37 y/o F with PMHx of AML (s/p chemotherapy, 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 Currently afebrile, BP stable, comfortable in NAD, sat 100% on 2LNC, on heparin drip. Cardiology, IR, and heme onc following. Bilateral PE DVT Hx of AMl Hx BMT GVHD Recommend: - supp o2 as needed - duonebs PRN - NO ID issues - BP monitoring - Heparin drip, monitor Ptt closely - IR follow up - Cardiology follow up - ECHO - GI ppx - DVT ppx - Monitor in MICU critical care time 30 minutes
--- NOTE | 2017-12-21 11:18 | CT ---
Date of service: 12/20/2017 PROCEDURE: CT Chest with contrast (Pulmonary Angiogram) HISTORY: r/o PE COMPARISON: None available. TECHNIQUE: Axial computed tomography images were obtained of the chest in the pulmonary arterial phase of enhancement. Coronal and sagittal reformatted images were created and reviewed. Intravenous contrast dose: 150 cc of Visipaque Radiation dose: Total exam DLP = 541 mGy-cm. This CT exam was performed using one or more of the following dose reduction techniques: Automated exposure control, adjustment of the mA and/or kV according to patient size, and/or use of iterative reconstruction technique. FINDINGS: PULMONARY ARTERIES: There is a saddle embolus as well extensive emboli in the pulmonary arteries bilaterally lower and upper lobes. There is no significant enlargement of the right ventricle. Dr. Charles was notified by a virtual Radiology at 8:33 p.m. 12/20/2017 AORTA: No acute findings. No thoracic aortic aneurysm. LUNGS: Unremarkable. No nodule, mass or pulmonary consolidation. PLEURAL SPACES: Unremarkable. No effusion or pneuomothorax. HEART: Unremarkable. No cardiomegaly. No significant pericardial effusion. LYMPH NODES: No lymphadenopathy. BONES, CHEST WALL: Unremarkable. No fracture or destructive lesion OTHER FINDINGS: The report concurs with the preliminary Virtual Radiologic report IMPRESSION: There is a saddle embolus as well extensive emboli in the pulmonary arteries bilaterally lower and upper lobes.
[2017-12-21] MEDS: Pantoprazole 40 mg EC Tab PO SCH (11:30)
--- NOTE | 2017-12-21 15:45 | CARD ---
APPROVED REPORT Date of service: 12/21/2017 EXAM: Two-dimensional and M-mode echocardiogram with Doppler and color Doppler. INDICATION PRE-SYNCOPAL EPISODE 2D DIMENSIONS Left Atrium (2D)3.9 (1.6-4.0cm)IVSd1.1 (0.7-1.1cm) LVDd3.0 (3.9-5.9cm)PWd1.2 (0.7-1.1cm) LVDs2.0 (2.5-4.0cm)FS (%) 35.6 % LVEF (%)66.9 (>50%) M-Mode DIMENSIONS Aortic Root3.30 (2.2-3.7cm)Aortic Cusp Exc.1.70 (1.5-2.0cm) Aortic Valve AoV Peak Duvpiwnv935.0cm/Su Peak GR.10mmHgLVOT Peak Ctqzwxki910.0cm/s LVOT VTI22.90cm Mitral Valve MV E Nyjzsmdv04.9cm/sMV A Dpdiqnkw01.8cm/sE/A ratio0.5 TDI Lateral E' Peak V7.60cm/sMedial E' Peak V5.75cm/sE/Lateral E'6.4 E/Medial E'8.5 Pulmonary Valve PV Peak Necvgzrl82.3cm/sPV Peak Grad.1mmHg Tricuspid Valve TR Peak Jnzvyqub708wh/sRAP ILPBZDFD84ihWoKE Peak Gr.54mmHg JIGO94jvYx LEFT VENTRICLE The left ventricle is normal size. There is normal left ventricular wall thickness. The left ventricular function is normal. The left ventricular ejection fraction is within the normal range. There is normal LV segmental wall motion. Transmitral Doppler flow pattern is Grade I-abnormal relaxation pattern. RIGHT VENTRICLE The right ventricle is moderately dilated. There is normal right ventricular wall thickness. RV Systolic function is moderately to severely reduced. ATRIA The left atrium size is normal. The right atrium size is normal. AORTIC VALVE The aortic valve is normal in structure. No aortic regurgitation is present. There is no aortic valvular stenosis. MITRAL VALVE The mitral valve is normal in structure. Mitral regurgitation is trace to mild. There is no mitral valve stenosis. TRICUSPID VALVE There is moderate to severe tricuspid regurgitation. There is moderate to severe pulmonary hypertension. <Conclusion> The right ventricle is moderately dilated. RV Systolic function is moderately to severely reduced. There is moderate to severe tricuspid regurgitation. There is moderate to severe pulmonary hypertension.
--- NOTE | 2017-12-21 16:10 | CP.PCM.PN ---
<Sergio Bryant - Last Filed: 12/21/17 15:53> Subjective - Date & Time of Evaluation Date of Evaluation: 12/21/17 Time of Evaluation: 15:53 - Subjective Subjective: Sergio Bryant. Ailin PGY-1 -- Canary Breeder --Medicine Progress Note Patient was seen and evaluated at bedside this morning. Patient says she still feels fatigued. Patient denies any lower extremity pain, shortness of breath, chest pain, fever, chills, night sweats, headache, vision changes, vaginal bleeding, and/or numbness/tingling. PMD: Jojo Herron MD Objective - Vital Signs/Intake and Output Vital Signs (last 24 hours): Temp Pulse Resp BP Pulse Ox 97.7 F 83 21 129/97 H 100 12/21/17 07:34 12/21/17 14:20 12/21/17 07:34 12/21/17 14:20 12/21/17 07:34 Intake and Output: 12/21/17 12/21/17 06:59 18:59 Output Total 1 Balance -1 - Medications Medications: Current Medications Azithromycin (Zithromax) 250 mg PO MON [facility] PRN Reason: Protocol Azithromycin (Zithromax) 250 mg PO FRI [facility] PRN Reason: Protocol Dextrose (Dextrose 50% Inj) 0 ml IV STAT PRN; Protocol PRN Reason: Hypoglycemia Protocol Diltiazem HCl (Cardizem) 30 mg PO TID [facility] Last Admin: 12/21/17 14:20 Dose: 30 mg Folic Acid (Folic Acid) 2 mg PO DAILY [facility] Last Admin: 12/21/17 09:43 Dose: 2 mg Home Med (Home Med) 0 unit PO BRKDIN [facility] Heparin Sodium/Sodium Chloride (Heparin 34632 Units/250ml 1/2 Normal Saline) 25 ,000 units in 250 mls @ 14.223 mls/hr IV .[id number] PRN; Protocol; 18 UNITS/KG/HR PRN Reason: ADJUST RATE PER PROTOCOL Last Admin: 12/20/17 19:47 Dose: 18 units/kg/hr, 14.223 mls/hr Dextrose (Dextrose 5% In Water 1000 Ml) 1,000 mls @ 0 mls/hr IV .Q0M PRN; Protocol; Per Protocol PRN Reason: Hypoglycemia Protocol Insulin Human Lispro (Humalog Med) 0 units SC ACHS [facility] PRN Reason: Protocol Last Admin: 12/21/17 12:22 Dose: Not Given Metoprolol Tartrate (Lopressor) 25 mg PO Q12H [facility] Last Admin: 12/21/17 09:45 Dose: 25 mg Posaconazole [ Noxafil] 300 Mg ( Home Med) 300 mg PO DIN [facility] Magnesium Amino Acid Chelate [Magnesium] 399 Mg) 399 mg PO TID [facility] Oxycodone HCl (Oxycodone Immediate Release Tab) 5 mg PO Q12H PRN PRN Reason: Pain, moderate (4-7) Last Admin: 12/21/17 10:01 Dose: 5 mg Oxycodone HCl (Oxycontin Extended Release Tab) 10 mg PO DAILY [facility] Last Admin: 12/21/17 10:22 Dose: Not Given Pantoprazole Sodium (Protonix Ec Tab) 40 mg PO DAILY [facility] Last Admin: 12/21/17 11:30 Dose: 40 mg Polyethylene Glycol (Miralax) 17 gm PO DAILY [facility] Last Admin: 12/21/17 09:43 Dose: 17 gm Prednisone (Prednisone Tab) 30 mg PO DAILY [facility] Sodium Bicarbonate (Sodium Bicarbonate Tab) 325 mg PO BID [facility] Last Admin: 12/21/17 09:42 Dose: 325 mg Tacrolimus (Prograf Cap) 2 mg PO Q12 [facility] Trimethoprim/Sulfamethoxazole (Bactrim Ss Tab) 1 tab PO MWF [facility] PRN Reason: Protocol Last Admin: 12/21/17 10:10 Dose: 1 tab Ursodiol (Actigall) 300 mg PO TID [facility] Last Admin: 12/21/17 14:21 Dose: 300 mg Valacyclovir HCl (Valtrex) 500 mg PO BID [facility] PRN Reason: Protocol Last Admin: 12/21/17 10:30 Dose: 500 mg - Labs Labs: 12/21/17 05:30 12/21/17 05:30 PT 11.5 SECONDS (9.4-12.5) 12/20/17 18:45 INR 1.01 (0.93-1.08) 12/20/17 18:45 APTT 68.7 Seconds (25.1-36.5) H 12/21/17 08:50 - Constitutional Appears: No Acute Distress - Head Exam Head Exam: ATRAUMATIC, NORMAL INSPECTION, NORMOCEPHALIC - Eye Exam Eye Exam: Normal appearance Pupil Exam: NORMAL ACCOMODATION - ENT Exam ENT Exam: Mucous Membranes Moist, Normal Exam - Neck Exam Neck Exam: Full ROM, Normal Inspection - Respiratory Exam Respiratory Exam: Clear to Ausculation Bilateral, NORMAL BREATHING PATTERN. absent: Accessory Muscle Use, Chest Wall Tenderness, Decreased Breath Sounds, Prolonged Expiratory Phase, Rhonchi, Wheezes, Respiratory Distress - Cardiovascular Exam Cardiovascular Exam: REGULAR RHYTHM. absent: Bradycardia, Tachycardia, Diastolic murmur, Gallop - GI/Abdominal Exam GI & Abdominal Exam: Soft, Normal Bowel Sounds. absent: Firm, Guarding, Diminished Bowel Sounds, Hyperactive Bowel Sounds, Hypoactive Bowel Sounds, Rebound - Extremities Exam Extremities Exam: Full ROM, Normal Capillary Refill, Normal Inspection - Back Exam Back Exam: Full ROM, NORMAL INSPECTION. absent: paraspinal tenderness, rash noted - Neurological Exam Neurological Exam: Alert, Awake, CN II-XII Intact, Normal Gait, Oriented x3 - Psychiatric Exam Psychiatric exam: Normal Affect, Normal Mood - Skin Skin Exam: Dry, Intact, Normal Color, Warm Assessment and Plan - Assessment and Plan (Free Text) Assessment: Ms. 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 Bilateral Pulmonary Embolisms secondary to deep vein thrombosis likely secondary to oral contraceptive use versus graft vs host disease - Continue Heparin pulmonary embolism protocol started in ED - Interventional radiologist, Dr. Lerma consulted, recommendations appreciated - Withhold oral contraceptives - Repeat PTT ordered - Continue to monitor patient's respiratory status in ICU - Vascular surgery consulted, Dr. Lerma saw her in ED, recommendations appreciated - Dr. Wilkinson Heme/onc consulted, recommendations appreciated - Consulted [employer] Contact [facility] at [facility], Dr. Zac Freed, who agrees with plan to continue Heparin PE protocol Bilateral Lower Extremity (LE) DVT - Patient hypercoagulatory state secondary to above - Bilateral LE Ultrasound: pending - Currently on Heparin protocol Near syncopal episode - Serial troponin Q6H x 2 completed. - Repeat EKG pending - Echo completed: right ventricle (RV) moderately dilated, RV systolic function is moderately to severely reduced, moderate/sever tricuspid regurgitation, moderate/severe pulmonary hypertension, per radiology report. 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 Vinicio MD. Sergio Bryant. Ailin PYG-1 <Miguel Angel Mooney - Last Filed: 12/23/17 15:41> Objective - Vital Signs/Intake and Output Vital Signs (last 24 hours): Temp Pulse Resp BP Pulse Ox 98.1 F 92 H 21 142/105 H 88 L 12/22/17 15:31 12/22/17 16:28 12/22/17 16:28 12/22/17 16:00 12/22/17 15:50 - Labs Labs: 12/22/17 11:30 12/22/17 06:40 PT 11.5 SECONDS (9.4-12.5) 12/20/17 18:45 INR 1.01 (0.93-1.08) 12/20/17 18:45 APTT 78.3 Seconds (25.1-36.5) H 12/22/17 06:40 Attending/Attestation - Attestation I have personally seen and examined this patient.: Yes I have fully participated in the care of the patient.: Yes I have reviewed all pertinent clinical information, including history, physical exam and plan: Yes Notes (Text): 12/23/17 15:31 attending note; Patient seen and examined with resident in ICU. Patient's mother by the bedside. patient is a 37 year old female with a significant past medical history of AML status post chemotherapy, bone marrow transplant in September, graft vs host disease , hypertension, asthma, and BK virus infection UTi secondary to bone marrow transplant who [place] [facility] for bilateral leg pain and episode of syncope and was subsequently admitted for evaluation and treatment of bilateral pulmonary embolism. The patient was seen in [facility] yesterday and found to have DVT. Patient was prescribed subcutaneous Lovenox. Upon arriving home the patient had shortness of breath and dizziness. The patient was brought [place] [facility] and found to have saddle embolus. Echocardiogram showed significant right ventricular strain and decreased right ventricular function and moderate to severe pulmonary hypertension secondary to acute saddle embolus. Currently on IV heparin drip. PTT is therapeutic. Patient is hemodynamically stable. Intervention radiology consult appreciated. No thrombolysis recommended. acute EKG changes; secondary to pulmonary embolus. Elevated troponin; secondary to right ventricular strain due to pulmonary embolus. Cardiology evaluation requested. Anemia; chronic. Baseline hemoglobin is 8-9. No active bleeding noted. Patient was on estrogen-containing hormonal pill for vaginal bleeding. Patient with a history of hemorrhagic shock in the past while on anticoagulation. monitor for any bleeding. Currently patient denies any vaginal bleeding, hematuria, blood in the stool. AML status post chemotherapy and bone marrow transplant. Oncology evaluation requested. continue medication per oncology team post transplant. Continue acyclovir, posaconazole, prednisone, Prograf and Bactrim. Case discussed with [place] oncology team. monitor the patient closely in ICU. upon discharge the patient will follow-up with PMD Dr. Herron. 12/23/17 15:41
[2017-12-21] MEDS ORDERED: POSACONAZOLE PO SCH (17:00)
[2017-12-21] MEDS: TACROLIMUS 0.5 MG PO SCH (17:24)
[2017-12-21] MEDS: MAGNESIUM AMINO ACID CHELATE PO SCH (17:36)
[2017-12-21] MEDS: Heparin25000 units/250ml 1/2NS 25,000 UNITS/250 ML BAG IV PRN (17:37)
--- NOTE | 2017-12-21 20:15 | CARD ---
APPROVED REPORT Date of service: 12/21/2017 EKG Measurement Heart [id number] <Conclusion> Sinus tachycardia Low voltage QRS Borderline ECG
--- NOTE | 2017-12-21 20:15 | CARD ---
APPROVED REPORT Date of service: 12/21/2017 EKG Measurement Heart [id number] <Conclusion> Sinus tachycardia Otherwise normal ECG
--- NOTE | 2017-12-21 20:22 | CARD ---
APPROVED REPORT Date of service: 12/20/2017 EKG Measurement Heart [id number] <Conclusion> Sinus tachycardia Low voltage QRS Septal infarct, age undetermined Possible Lateral infarct, age undetermined Inferior injury pattern ACUTE IN Consider right ventricular involvement in acute inferior infarct Abnormal ECG
--- NOTE | 2017-12-22 06:39 | CP.PCM.PN ---
Subjective - Date & Time of Evaluation Date of Evaluation: 12/22/17 Time of Evaluation: 06:38 - Subjective Subjective: Sergio Bryant D.O. PGY-1 -- Clinical Technologist -- Medicine Progress Note Objective - Vital Signs/Intake and Output Vital Signs (last 24 hours): Temp Pulse Resp BP Pulse Ox 98 F 86 14 147/119 H 100 12/22/17 04:00 12/22/17 02:00 12/21/17 20:30 12/21/17 21:44 12/21/17 20:30 Intake and Output: 12/21/17 12/22/17 18:59 06:59 Intake Total 831 Output Total 2 Balance 829 - Medications Medications: Current Medications Azithromycin (Zithromax) 250 mg PO MON [facility] PRN Reason: Protocol Azithromycin (Zithromax) 250 mg PO FRI [facility] PRN Reason: Protocol Dextrose (Dextrose 50% Inj) 0 ml IV STAT PRN; Protocol PRN Reason: Hypoglycemia Protocol Diltiazem HCl (Cardizem) 30 mg PO TID [facility] Last Admin: 12/21/17 18:14 Dose: 30 mg Folic Acid (Folic Acid) 2 mg PO DAILY [facility] Last Admin: 12/21/17 09:43 Dose: 2 mg Home Med (Home Med) 0 unit PO BRKDIN [facility] Last Admin: 12/21/17 17:24 Dose: 1 unit Heparin Sodium/Sodium Chloride (Heparin 22456 Units/250ml 1/2 Normal Saline) 25 ,000 units in 250 mls @ 14.223 mls/hr IV .[id number] PRN; Protocol; 18 UNITS/KG/HR PRN Reason: ADJUST RATE PER PROTOCOL Last Admin: 12/21/17 17:37 Dose: 18 units/kg/hr, 14.223 mls/hr Dextrose (Dextrose 5% In Water 1000 Ml) 1,000 mls @ 0 mls/hr IV .Q0M PRN; Protocol; Per Protocol PRN Reason: Hypoglycemia Protocol Insulin Human Lispro (Humalog Med) 0 units SC ACHS [facility] PRN Reason: Protocol Last Admin: 12/21/17 21:43 Dose: Not Given Metoprolol Tartrate (Lopressor) 25 mg PO Q12H [facility] Last Admin: 12/21/17 21:44 Dose: 25 mg Posaconazole [ Noxafil] 300 Mg ( Home Med) 300 mg PO DIN [facility] Last Admin: 12/21/17 17:25 Dose: 300 mg Magnesium Amino Acid Chelate [Magnesium] 399 Mg) 399 mg PO TID [facility] Last Admin: 12/21/17 17:36 Dose: 399 mg Oxycodone HCl (Oxycodone Immediate Release Tab) 5 mg PO Q12H PRN PRN Reason: Pain, moderate (4-7) Last Admin: 12/21/17 10:01 Dose: 5 mg Oxycodone HCl (Oxycontin Extended Release Tab) 10 mg PO DAILY [facility] Last Admin: 12/21/17 10:22 Dose: Not Given Pantoprazole Sodium (Protonix Ec Tab) 40 mg PO DAILY [facility] Last Admin: 12/21/17 11:30 Dose: 40 mg Polyethylene Glycol (Miralax) 17 gm PO DAILY [facility] Last Admin: 12/21/17 09:43 Dose: 17 gm Prednisone (Prednisone Tab) 30 mg PO DAILY [facility] Sodium Bicarbonate (Sodium Bicarbonate Tab) 325 mg PO BID [facility] Last Admin: 12/21/17 17:24 Dose: 325 mg Tacrolimus (Prograf Cap) 0.5 mg PO BID [facility] Trimethoprim/Sulfamethoxazole (Bactrim Ss Tab) 1 tab PO MWF [facility] PRN Reason: Protocol Last Admin: 12/21/17 10:10 Dose: 1 tab Ursodiol (Actigall) 300 mg PO TID [facility] Last Admin: 12/21/17 17:36 Dose: 300 mg Valacyclovir HCl (Valtrex) 500 mg PO BID [facility] PRN Reason: Protocol Last Admin: 12/21/17 17:24 Dose: 500 mg - Labs Labs: 12/21/17 05:30 12/21/17 05:30 PT 11.5 SECONDS (9.4-12.5) 12/20/17 18:45 INR 1.01 (0.93-1.08) 12/20/17 18:45 APTT 68.7 Seconds (25.1-36.5) H 12/21/17 08:50 Assessment and Plan - Assessment and Plan (Free Text) Assessment: Patient seen and case discussed in detail with Attending Physician, Dr. Vinicio Bryant D.O. PGY1
[2017-12-22 07:10] LABS: EOS % 0.1 % (1.5-5.0); GRAN # 5.7 (1.4-6.5); HEMOGLOBIN 7.7 g/dL (12.0-16.0); LYMPH # 0.9 (1.2-3.4); MEAN CELL VOLUME 102.6 fl (80.0-105.0); MEAN CORPUSCULAR HEMOGLOBIN 33.2 pg (25.0-35.0); MEAN CORPUSCULAR HGB CONC 32.4 g/dl (31.0-37.0); MEAN PLATELET VOLUME 10.2 fl (7.0-11.0); MONO # 0.8 (0.1-0.6); MONO % 10.9 % (1.0-6.0); RBC 2.32 10^6/uL (3.5-6.1); RED CELL DISTRIBUTION WIDTH 19.2 % (11.5-14.5); WHITE BLOOD COUNT 7.4 10^3/ul (4.5-11.0)
[2017-12-22 07:29] LABS: ALB/GLOB RATIO 1.3 (1.1-1.8); ALBUMIN 3.4 g/dL (3.0-4.8); ALT/SGPT 32 U/L (7-56); AST/SGOT 25 U/L (14-36); BLOOD UREA NITROGEN 16 mg/dL (7-21); CALCIUM 8.4 mg/dL (8.4-10.5); GFR AFRICAN-AMERICAN > 60; GFR NON-AFRICAN AMERICAN > 60
[2017-12-22] MEDS ORDERED: oxyCODONE 10 mg ER Tab (oxyCONTIN) PO SCH (07:55)
[2017-12-22] MEDS: Insulin Lispro (humaLOG) MEDIUM Coverage SC SCH ×2 (08:00→12:25)
[2017-12-22] MEDS: TACROLIMUS 0.5 MG PO SCH (08:23)
--- NOTE | 2017-12-22 09:28 | CP.CCUPN ---
<Regis Fair - Last Filed: 12/22/17 11:08> CCU Subjective - Physician Review Subjective (Free Text): Regis Fair, PGY1 Critical Care Progress Note for Dr. Jeter Patient was seen and examined at bedside this morning. Family member was also present. Patient said that she is feeling okay. Denied fevers, chest pain, shortness of breath, abdominal pain, headache, dizziness, lightheadedness, pain in the upper and lower extremities, nausea, vomiting, and bowel/bladder changes. Patient currently on 2L nasal canula and is saturating well. As per nursing staff, patient's diastolic blood pressure has been elevated yesterday evening and overnight. Full 12 point ROS was reviewed and unremarkable except as stated above. CCU Objective - Vital Signs / Intake & Output Vital Signs (Last 4 hours): Vital Signs Pulse Resp BP Pulse Ox 12/22/17 08:40 87 100 12/22/17 08:30 85 19 100 12/22/17 08:25 85 143/115 H 12/22/17 08:20 88 32 H 100 12/22/17 08:10 85 19 100 12/22/17 08:00 89 23 143/115 H 100 12/22/17 07:50 92 H 100 12/22/17 07:40 85 19 100 12/22/17 07:30 85 18 100 12/22/17 07:20 85 18 100 12/22/17 07:10 86 24 100 12/22/17 07:08 92 H 24 154/107 H 100 12/22/17 07:00 83 16 133/106 H 100 12/22/17 06:50 86 100 12/22/17 06:40 85 21 100 12/22/17 06:30 88 23 100 12/22/17 06:20 87 19 100 12/22/17 06:10 87 19 100 12/22/17 06:00 86 19 140/104 H 100 12/22/17 05:50 86 18 100 12/22/17 05:40 84 17 100 12/22/17 05:30 84 18 100 Intake and Output (Last 8hrs): Intake & Output 12/21/17 12/22/17 12/22/17 22:59 06:59 14:59 Intake Total 581 500 Output Total 1 150 Balance 580 350 Weight 81.193 kg Intake: Oral 360 500 Other 221 Output: Urine 150 Urine, Voided 150 Stool 1 Other: # Voids Urine, Voided 1 # Bowel Movements 1 - Physical Exam Head: Positive for: Atraumatic Pupils: Positive for: PERRL Extroacular Muscles: Positive for: EOMI Mouth: Positive for: Moist Mucous Membranes Pharnyx: Positive for: Normal Nose (External): Positive for: Other (Nasal canula 2L) Neck: Positive for: Normal Range of Motion. Negative for: JVD Respiratory/Chest: Positive for: Clear to Auscultation. Negative for: Respiratory Distress, Accessory Muscle Use, Wheezes, Rales, Rhonchi Cardiovascular: Positive for: Regular Rate and Rhythm, Normal S1, S2, Peripheal Pulses Present. Negative for: Rub, Gallop Abdomen: Positive for: Normal Bowel Sounds. Negative for: Tenderness, Distention, Rebound, Guarding Rectal: Negative for: Gross Blood Upper Extremity: Positive for: NORMAL PULSES Lower Extremity: Positive for: NORMAL PULSES, Normal ROM. Negative for: Edema, CALF TENDERNESS, Cyanosis, Erythema Neurological: Positive for: Speech Normal, Motor Func Grossly Intact Skin: Positive for: Warm, Dry Psychiatric: Positive for: Alert, Oriented x 3 - Medications Active Medications: Active Medications Generic Name Dose Route Start Last Admin Trade Name Freq PRN Reason Stop Dose Admin Azithromycin 250 mg 12/26/17 10:00 Zithromax PO MON [facility] Protocol Azithromycin 250 mg 12/23/17 10:00 Zithromax PO FRI [facility] Protocol Dextrose 0 ml 12/20/17 21:14 Dextrose 50% Inj IV STAT PRN Hypoglycemia Protocol Protocol Diltiazem HCl 30 mg 12/21/17 10:00 12/21/17 18:14 Cardizem PO 30 mg TID [facility] Administration Folic Acid 2 mg 12/21/17 10:00 12/21/17 09:43 Folic Acid PO 2 mg DAILY ANGEL Administration Home Med 0 unit 12/21/17 17:00 12/22/17 08:23 Home Med PO 1 unit BRKDIN [facility] Administration Heparin Sodium/Sodium Chloride 25,000 units in 250 mls @ 14.223 mls/hr 18:45 12/21/17 17:37 Heparin 32132 Units/250ml 1/2 Normal Saline IV 18 units/kg/hr .[id number] PRN 14.223 mls/hr ADJUST RATE PER PROTOCOL Administration Protocol 18 UNITS/KG/HR Dextrose 1,000 mls @ 0 mls/hr 12/20/17 21:14 Dextrose 5% In Water 1000 Ml IV .Q0M PRN Hypoglycemia Protocol Protocol Per Protocol Insulin Human Lispro 0 units 12/20/17 22:00 12/22/17 08:00 Humalog Med SC 1 unit ACHS ANGEL Administration Protocol Medroxyprogesterone Acetate 10 mg 12/22/17 10:00 Provera PO 12/28/17 10:01 DAILY ANGEL Metoprolol Tartrate 25 mg 12/20/17 20:45 12/22/17 08:25 Lopressor PO 25 mg Q12H [facility] Administration Posaconazole [ 300 mg 12/21/17 17:00 12/21/17 17:25 Noxafil] 300 Mg ( PO 300 mg Home Med) DIN ANGEL Administration Magnesium Amino Acid 399 mg 12/21/17 14:17 12/21/17 17:36 Chelate [Magnesium] PO 399 mg 399 Mg) TID ANGEL Administration Oxycodone HCl 5 mg 12/20/17 21:07 12/21/17 10:01 Oxycodone Immediate Release Tab PO 5 mg Q12H PRN Administration Pain, moderate (4-7) Oxycodone HCl 10 mg 12/22/17 07:55 Oxycontin Extended Release Tab PO DAILY [facility] Pantoprazole Sodium 40 mg 12/21/17 10:45 12/21/17 11:30 Protonix Ec Tab PO 40 mg DAILY ANGEL Administration Polyethylene Glycol 17 gm 12/21/17 10:00 12/21/17 09:43 Miralax PO 17 gm DAILY ANGEL Administration Prednisone 30 mg 12/22/17 10:00 Prednisone Tab PO DAILY ANGEL Sodium Bicarbonate 325 mg 12/21/17 10:00 12/21/17 17:24 Sodium Bicarbonate Tab PO 325 mg BID ANG[facility] Administration Trimethoprim/Sulfamethoxazole 1 tab 12/21/17 10:00 12/21/17 10:10 Bactrim Ss Tab PO 1 tab MWF [facility] Administration Protocol Ursodiol 300 mg 12/21/17 10:00 12/21/17 17:36 Actigall PO 300 mg TID ANGEL Administration Valacyclovir HCl 500 mg 12/21/17 10:00 12/21/17 17:24 Valtrex PO 500 mg BID ANGEL Administration Protocol - Patient Studies Lab Studies: Lab Studies 12/22/17 12/22/17 12/22/17 Range/Units 08:02 06:40 06:40 WBC (4.5-11.0) 10^3/ul RBC (3.5-6.1) 10^6/uL Hgb (12.0-16.0) g/dL Hct (36.0-48.0) % MCV (80.0-105.0) fl MCH (25.0-35.0) pg MCHC (31.0-37.0) g/dl RDW (11.5-14.5) % Plt Count (120.0-450.0) 10^3/uL MPV (7.0-11.0) fl Gran % (50.0-68.0) % Lymph % (Auto) (22.0-35.0) % [place] % (Auto) (1.0-6.0) % Eos % (Auto) (1.5-5.0) % Baso % (Auto) (0.0-3.0) % Gran # (1.4-6.5) Lymph # (Auto) (1.2-3.4) [place] # (Auto) (0.1-0.6) Eos # (Auto) (0.0-0.7) Baso # (Auto) (0.0-2.0) K/mm3 APTT 78.3 H (25.1-36.5) Seconds Sodium (132-148) mmol/L Potassium (3.6-5.0) mmol/L Chloride (98-107) mmol/L Carbon Dioxide (21-33) mmol/L Anion Gap (10-20) BUN (7-21) mg/dL Creatinine (0.7-1.2) mg/dl Est GFR ( Amer) Est GFR (Non-Af Amer) POC Glucose (mg/dL) 167 H (65-110) mg/dL Random Glucose (70-110) mg/dL Calcium (8.4-10.5) mg/dL Total Bilirubin (0.2-1.3) mg/dL AST (14-36) U/L ALT (7-56) U/L Alkaline Phosphatase (38-126) U/L Troponin I 0.06 D ng/mL Total Protein (5.8-8.3) g/dL Albumin (3.0-4.8) g/dL Globulin gm/dL Albumin/Globulin Ratio (1.1-1.8) 12/22/17 12/22/17 12/21/17 Range/Units 06:40 06:40 21:39 WBC 7.4 (4.5-11.0) 10^3/ul RBC 2.32 L (3.5-6.1) 10^6/uL Hgb 7.7 L (12.0-16.0) g/dL Hct 23.8 L (36.0-48.0) % MCV 102.6 (80.0-105.0) fl MCH 33.2 (25.0-35.0) pg MCHC 32.4 (31.0-37.0) g/dl RDW 19.2 H (11.5-14.5) % Plt Count 98 L (120.0-450.0) 10^3/uL MPV 10.2 (7.0-11.0) fl Gran % 77.0 H (50.0-68.0) % Lymph % (Auto) 12.0 L (22.0-35.0) % [place] % (Auto) 10.9 H (1.0-6.0) % Eos % (Auto) 0.1 L (1.5-5.0) % Baso % (Auto) 0.0 (0.0-3.0) % Gran # 5.70 (1.4-6.5) Lymph # (Auto) 0.9 L (1.2-3.4) [place] # (Auto) 0.8 H (0.1-0.6) Eos # (Auto) 0.0 (0.0-0.7) Baso # (Auto) 0.00 (0.0-2.0) K/mm3 APTT (25.1-36.5) Seconds Sodium 138 (132-148) mmol/L Potassium 4.4 (3.6-5.0) mmol/L Chloride 105 (98-107) mmol/L Carbon Dioxide 25 (21-33) mmol/L Anion Gap 12 (10-20) BUN 16 (7-21) mg/dL Creatinine 1.0 (0.7-1.2) mg/dl Est GFR ( Amer) > 60 Est GFR (Non-Af Amer) > 60 POC Glucose (mg/dL) 201 H (65-110) mg/dL Random Glucose 155 H (70-110) mg/dL Calcium 8.4 (8.4-10.5) mg/dL Total Bilirubin 0.4 (0.2-1.3) mg/dL AST 25 (14-36) U/L ALT 32 (7-56) U/L Alkaline Phosphatase 67 (38-126) U/L Troponin I ng/mL Total Protein 6.0 (5.8-8.3) g/dL Albumin 3.4 (3.0-4.8) g/dL Globulin 2.6 gm/dL Albumin/Globulin Ratio 1.3 (1.1-1.8) 12/21/17 12/21/17 12/21/17 Range/Units 17:15 11:18 08:50 WBC (4.5-11.0) 10^3/ul RBC (3.5-6.1) 10^6/uL Hgb (12.0-16.0) g/dL Hct (36.0-48.0) % MCV (80.0-105.0) fl MCH (25.0-35.0) pg MCHC (31.0-37.0) g/dl RDW (11.5-14.5) % Plt Count (120.0-450.0) 10^3/uL MPV (7.0-11.0) fl Gran % (50.0-68.0) % Lymph % (Auto) (22.0-35.0) % [place] % (Auto) (1.0-6.0) % Eos % (Auto) (1.5-5.0) % Baso % (Auto) (0.0-3.0) % Gran # (1.4-6.5) Lymph # (Auto) (1.2-3.4) [place] # (Auto) (0.1-0.6) Eos # (Auto) (0.0-0.7) Baso # (Auto) (0.0-2.0) K/mm3 APTT 68.7 H (25.1-36.5) Seconds Sodium (132-148) mmol/L Potassium (3.6-5.0) mmol/L Chloride (98-107) mmol/L Carbon Dioxide (21-33) mmol/L Anion Gap (10-20) BUN (7-21) mg/dL Creatinine (0.7-1.2) mg/dl Est GFR ( Amer) Est GFR (Non-Af Amer) POC Glucose (mg/dL) 297 H 126 H (65-110) mg/dL Random Glucose (70-110) mg/dL Calcium (8.4-10.5) mg/dL Total Bilirubin (0.2-1.3) mg/dL AST (14-36) U/L ALT (7-56) U/L Alkaline Phosphatase (38-126) U/L Troponin I ng/mL Total Protein (5.8-8.3) g/dL Albumin (3.0-4.8) g/dL Globulin gm/dL Albumin/Globulin Ratio (1.1-1.8) Laboratory Results - last 24 hr 12/21/17 12/21/17 12/21/17 08:50 11:18 17:15 WBC RBC Hgb Hct MCV MCH MCHC RDW Plt Count MPV Gran % Lymph % (Auto) [place] % (Auto) Eos % (Auto) Baso % (Auto) Gran # Lymph # (Auto) [place] # (Auto) Eos # (Auto) Baso # (Auto) APTT 68.7 H Sodium Potassium Chloride Carbon Dioxide Anion Gap BUN Creatinine Est GFR ( Amer) Est GFR (Non-Af Amer) POC Glucose (mg/dL) 126 H 297 H Random Glucose Calcium Total Bilirubin AST ALT Alkaline Phosphatase Troponin I Total Protein Albumin Globulin Albumin/Globulin Ratio 12/21/17 12/22/17 12/22/17 21:39 06:40 06:40 WBC 7.4 RBC 2.32 L Hgb 7.7 L Hct 23.8 L MCV 102.6 MCH 33.2 MCHC 32.4 RDW 19.2 H Plt Count 98 L MPV 10.2 Gran % 77.0 H Lymph % (Auto) 12.0 L [place] % (Auto) 10.9 H Eos % (Auto) 0.1 L Baso % (Auto) 0.0 Gran # 5.70 Lymph # (Auto) 0.9 L [place] # (Auto) 0.8 H Eos # (Auto) 0.0 Baso # (Auto) 0.00 APTT Sodium 138 Potassium 4.4 Chloride 105 Carbon Dioxide 25 Anion Gap 12 BUN 16 Creatinine 1.0 Est GFR ( Amer) > 60 Est GFR (Non-Af Amer) > 60 POC Glucose (mg/dL) 201 H Random Glucose 155 H Calcium 8.4 Total Bilirubin 0.4 AST 25 ALT 32 Alkaline Phosphatase 67 Troponin I Total Protein 6.0 Albumin 3.4 Globulin 2.6 Albumin/Globulin Ratio 1.3 12/22/17 12/22/17 12/22/17 06:40 06:40 08:02 WBC RBC Hgb Hct MCV MCH MCHC RDW Plt Count MPV Gran % Lymph % (Auto) [place] % (Auto) Eos % (Auto) Baso % (Auto) Gran # Lymph # (Auto) [place] # (Auto) Eos # (Auto) Baso # (Auto) APTT 78.3 H Sodium Potassium Chloride Carbon Dioxide Anion Gap BUN Creatinine Est GFR ( Amer) Est GFR (Non-Af Amer) POC Glucose (mg/dL) 167 H Random Glucose Calcium Total Bilirubin AST ALT Alkaline Phosphatase Troponin I 0.06 D Total Protein Albumin Globulin Albumin/Globulin Ratio Fingerstick Blood Sugar Results: 167 Review of Systems - Review of Systems All systems: reviewed and no additional remarkable complaints except (as per HPI ) Critical Care Progress Note - Extremities/Vascular Does the Patient have a Central Venous Catheter?: No Does the Patient need a Central Venous Catheter?: No Does the Patient have a Velasco Catheter?: No Does the Patient need a Velasco Catheter?: No - Prophylaxis GI Prophylaxis GI: PPI - Prophylaxis DVT Prophylaxis DVT: Heparin SQ - Nutrition Nutrition: Nutrition Category Date Time Status Heart Healthy Diet [DIET] Diets 12/21/17 Dinner Active Assessment/Plan - Assessment and Plan (Free Text) Assessment: Patient is a 37 y/o F with PMHx of AML (s/p chemotherapy, 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 Patient went to [facility] (formerly [facility]) and was discharged on Lovenox 80 mg after performing a LE doppler US showing DVT. Patient was not improving and was brought into the ED at [facility] by her mother. CTA was done and showed saddle embolism. Patient is currently under ICU management for saddle embolism and started on heparin gtt. Patient is being followed by cardiology, heme/onc, and IR. Patient's diastolic blood pressure has been elevated in the unit, however, cardiology (Dr. Vasquez) does not want to make changes to meds at this time. Echo shows mod-severe reduced RV systolic function and mod-severe pulmonary HTN likely 2/2 pulmonary embolism. Patient's hemoglobin has also been trending downwards (baseline 8-9) and will be monitored. Otherwise, patient is doing well on exam and is asymptomatic. Plan: Neuro: - no syncopal episodes since admission - Maintain normothermia Pulm: - Currently on nasal canula 2L, saturating well - CTA (12/20): saddle embolus as well as extensive emboli in pulmonary arteries bilaterally lower and upper lobes - c/w Heparin gtt 25,000 units for management of PE - Maintain SaO2 > 92% Cardio: - ECHO (12/21): EF 66.9%. RV mod dilated. RV systolic function mod-severely reduced. Mod-severe pulm HTN. - Elevated Diastolic BP: no change in meds, as per Cardio - EKG (12/21): sinus tachy, no ST elevations or T wave inversions - c/w Lopressor and Diltiazem - Elevated troponins likely 2/2 PE and not cardiac in origin - Maintain MAP > 65 GI: - Protonix ppx - c/w Ursodiol - Diabetic diet Renal: - Replete lytes as needed Heme: - H/H trending down (baseline 8-9): Recent H/H is 7.7/23.8 (12/22), repeat cbc, f /u FOBT if necessary - c/w Heparin gtt 25,000 units for management of PE - c/w AML meds: Tacrolimus, Folic acid, oxycodone for pain - Patient on control meds at home: advise to discontinue due to hypercoaguability - Heme/Onc consulted ID: - No active infections at this time - c/w azithromycin/Bactrim for prophylaxis of opportunistic infections in immunocompromised patient Endo: - Elevated blood sugars - ISS - Accucheck ACHS Dispo: Patient is still under ICU management for management of saddle embolism. Primary team will contact [facility] (formerly [facility]) for transfer of patient for higher management. Case was dicussed and reviewed with Attending Physician Dr. Jeter. <Yassine Jeter - Last Filed: 12/22/17 11:28> CCU Objective - Vital Signs / Intake & Output Vital Signs (Last 4 hours): Vital Signs Pulse Resp BP Pulse Ox 12/22/17 10:13 86 136/101 H 12/22/17 08:40 87 100 12/22/17 08:30 85 19 100 12/22/17 08:25 85 143/115 H 12/22/17 08:20 88 32 H 100 12/22/17 08:10 85 19 100 12/22/17 08:00 89 23 143/115 H 100 12/22/17 07:50 92 H 100 12/22/17 07:40 85 19 100 12/22/17 07:30 85 18 100 Intake and Output (Last 8hrs): Intake & Output 12/21/17 12/22/17 12/22/17 22:59 06:59 14:59 Intake Total 581 500 Output Total 1 150 Balance 580 350 Weight 179 lb Intake: Oral 360 500 Other 221 Output: Urine 150 Urine, Voided 150 Stool 1 Other: # Voids Urine, Voided 1 # Bowel Movements 1 - Medications Active Medications: Active Medications Generic Name Dose Route Start Last Admin Trade Name Freq PRN Reason Stop Dose Admin Azithromycin 250 mg 12/26/17 10:00 Zithromax PO MON ANGEL Protocol Azithromycin 250 mg 12/23/17 10:00 Zithromax PO FRI ANGEL Protocol Dextrose 0 ml 12/20/17 21:14 Dextrose 50% Inj IV STAT PRN Hypoglycemia Protocol Protocol Diltiazem HCl 30 mg 12/21/17 10:00 12/22/17 10:13 Cardizem PO 30 mg TID ANGEL Administration Folic Acid 2 mg 12/21/17 10:00 12/22/17 10:13 Folic Acid PO 2 mg DAILY ANGEL Administration Home Med 0 unit 12/21/17 17:00 12/22/17 08:23 Home Med PO 1 unit BRKDIN ANGEL Administration Heparin Sodium/Sodium Chloride 25,000 units in 250 mls @ 14.223 mls/hr 18:45 12/21/17 17:37 Heparin [id number] Units/250ml 1/2 Normal Saline IV 18 units/kg/hr .[id number] PRN 14.223 mls/hr ADJUST RATE PER PROTOCOL Administration Protocol 18 UNITS/KG/HR Dextrose 1,000 mls @ 0 mls/hr 12/20/17 21:14 Dextrose 5% In Water 1000 Ml IV .Q0M PRN Hypoglycemia Protocol Protocol Per Protocol Insulin Human Lispro 0 units 12/20/17 22:00 12/22/17 08:00 Humalog Med SC 1 unit ACHS ANGEL Administration Protocol Medroxyprogesterone Acetate 10 mg 12/22/17 10:00 12/22/17 10:07 Provera PO 12/28/17 10:01 10 mg DAILY ANGEL Administration Metoprolol Tartrate 25 mg 12/20/17 20:45 12/22/17 08:25 Lopressor PO 25 mg Q12H ANGEL Administration Posaconazole [ 300 mg 12/21/17 17:00 12/21/17 17:25 Noxafil] 300 Mg ( PO 300 mg Home Med) DIN ANGEL Administration Magnesium Amino Acid 399 mg 12/21/17 14:17 12/22/17 10:15 Chelate [Magnesium] PO 399 mg 399 Mg) TID ANGEL Administration Oxycodone HCl 5 mg 12/20/17 21:07 12/21/17 10:01 Oxycodone Immediate Release Tab PO 5 mg Q12H PRN Administration Pain, moderate (4-7) Oxycodone HCl 10 mg 12/22/17 07:55 12/22/17 10:33 Oxycontin Extended Release Tab PO Not Given DAILY ANGEL Pantoprazole Sodium 40 mg 12/21/17 10:45 12/22/17 10:14 Protonix Ec Tab PO 40 mg DAILY ANGEL Administration Polyethylene Glycol 17 gm 12/21/17 10:00 12/22/17 10:12 Miralax PO 17 gm DAILY ANGEL Administration Prednisone 30 mg 12/22/17 10:00 12/22/17 10:14 Prednisone Tab PO 30 mg DAILY ANGEL Administration Sodium Bicarbonate 325 mg 12/21/17 10:00 12/22/17 10:13 Sodium Bicarbonate Tab PO 325 mg BID ANGEL Administration Trimethoprim/Sulfamethoxazole 1 tab 12/21/17 10:00 12/21/17 10:10 Bactrim Ss Tab PO 1 tab MWF ANGEL Administration Protocol Ursodiol 300 mg 12/21/17 10:00 12/22/17 10:12 Actigall PO 300 mg TID ANGEL Administration Valacyclovir HCl 500 mg 12/21/17 10:00 12/22/17 10:12 Valtrex PO 500 mg BID ANGEL Administration Protocol - Patient Studies Lab Studies: Lab Studies 12/22/17 12/22/17 12/22/17 Range/Units 08:02 06:40 06:40 WBC (4.5-11.0) 10^3/ul RBC (3.5-6.1) 10^6/uL Hgb (12.0-16.0) g/dL Hct (36.0-48.0) % MCV (80.0-105.0) fl MCH (25.0-35.0) pg MCHC (31.0-37.0) g/dl RDW (11.5-14.5) % Plt Count (120.0-450.0) 10^3/uL MPV (7.0-11.0) fl Gran % (50.0-68.0) % Lymph % (Auto) (22.0-35.0) % [place] % (Auto) (1.0-6.0) % Eos % (Auto) (1.5-5.0) % Baso % (Auto) (0.0-3.0) % Gran # (1.4-6.5) Lymph # (Auto) (1.2-3.4) [place] # (Auto) (0.1-0.6) Eos # (Auto) (0.0-0.7) Baso # (Auto) (0.0-2.0) K/mm3 APTT 78.3 H (25.1-36.5) Seconds Sodium (132-148) mmol/L Potassium (3.6-5.0) mmol/L Chloride (98-107) mmol/L Carbon Dioxide (21-33) mmol/L Anion Gap (10-20) BUN (7-21) mg/dL Creatinine (0.7-1.2) mg/dl Est GFR ( Amer) Est GFR (Non-Af Amer) POC Glucose (mg/dL) 167 H (65-110) mg/dL Random Glucose (70-110) mg/dL Calcium (8.4-10.5) mg/dL Total Bilirubin (0.2-1.3) mg/dL AST (14-36) U/L ALT (7-56) U/L Alkaline Phosphatase (38-126) U/L Troponin I 0.06 D ng/mL Total Protein (5.8-8.3) g/dL Albumin (3.0-4.8) g/dL Globulin gm/dL Albumin/Globulin Ratio (1.1-1.8) Blood Type Antibody Screen Crossmatch BBK History Checked 12/22/17 12/22/17 12/21/17 Range/Units 06:40 06:40 21:39 WBC 7.4 (4.5-11.0) 10^3/ul RBC 2.32 L (3.5-6.1) 10^6/uL Hgb 7.7 L (12.0-16.0) g/dL Hct 23.8 L (36.0-48.0) % MCV 102.6 (80.0-105.0) fl MCH 33.2 (25.0-35.0) pg MCHC 32.4 (31.0-37.0) g/dl RDW 19.2 H (11.5-14.5) % Plt Count 98 L (120.0-450.0) 10^3/uL MPV 10.2 (7.0-11.0) fl Gran % 77.0 H (50.0-68.0) % Lymph % (Auto) 12.0 L (22.0-35.0) % [place] % (Auto) 10.9 H (1.0-6.0) % Eos % (Auto) 0.1 L (1.5-5.0) % Baso % (Auto) 0.0 (0.0-3.0) % Gran # 5.70 (1.4-6.5) Lymph # (Auto) 0.9 L (1.2-3.4) [place] # (Auto) 0.8 H (0.1-0.6) Eos # (Auto) 0.0 (0.0-0.7) Baso # (Auto) 0.00 (0.0-2.0) K/mm3 APTT (25.1-36.5) Seconds Sodium 138 (132-148) mmol/L Potassium 4.4 (3.6-5.0) mmol/L Chloride 105 (98-107) mmol/L Carbon Dioxide 25 (21-33) mmol/L Anion Gap 12 (10-20) BUN 16 (7-21) mg/dL Creatinine 1.0 (0.7-1.2) mg/dl Est GFR ( Amer) > 60 Est GFR (Non-Af Amer) > 60 POC Glucose (mg/dL) 201 H (65-110) mg/dL Random Glucose 155 H (70-110) mg/dL Calcium 8.4 (8.4-10.5) mg/dL Total Bilirubin 0.4 (0.2-1.3) mg/dL AST 25 (14-36) U/L ALT 32 (7-56) U/L Alkaline Phosphatase 67 (38-126) U/L Troponin I ng/mL Total Protein 6.0 (5.8-8.3) g/dL Albumin 3.4 (3.0-4.8) g/dL Globulin 2.6 gm/dL Albumin/Globulin Ratio 1.3 (1.1-1.8) Blood Type Antibody Screen Crossmatch BBK History Checked 12/21/17 12/20/17 Range/Units 17:15 19:35 WBC (4.5-11.0) 10^3/ul RBC (3.5-6.1) 10^6/uL Hgb (12.0-16.0) g/dL Hct (36.0-48.0) % MCV (80.0-105.0) fl MCH (25.0-35.0) pg MCHC (31.0-37.0) g/dl RDW (11.5-14.5) % Plt Count (120.0-450.0) 10^3/uL MPV (7.0-11.0) fl Gran % (50.0-68.0) % Lymph % (Auto) (22.0-35.0) % [place] % (Auto) (1.0-6.0) % Eos % (Auto) (1.5-5.0) % Baso % (Auto) (0.0-3.0) % Gran # (1.4-6.5) Lymph # (Auto) (1.2-3.4) [place] # (Auto) (0.1-0.6) Eos # (Auto) (0.0-0.7) Baso # (Auto) (0.0-2.0) K/mm3 APTT (25.1-36.5) Seconds Sodium (132-148) mmol/L Potassium (3.6-5.0) mmol/L Chloride (98-107) mmol/L Carbon Dioxide (21-33) mmol/L Anion Gap (10-20) BUN (7-21) mg/dL Creatinine (0.7-1.2) mg/dl Est GFR ( Amer) Est GFR (Non-Af Amer) POC Glucose (mg/dL) 297 H (65-110) mg/dL Random Glucose (70-110) mg/dL Calcium (8.4-10.5) mg/dL Total Bilirubin (0.2-1.3) mg/dL AST (14-36) U/L ALT (7-56) U/L Alkaline Phosphatase (38-126) U/L Troponin I ng/mL Total Protein (5.8-8.3) g/dL Albumin (3.0-4.8) g/dL Globulin gm/dL Albumin/Globulin Ratio (1.1-1.8) Blood Type O POSITIVE Antibody Screen Negative Crossmatch See Detail BBK History Checked Patient has bt Laboratory Results - last 24 hr 12/20/17 12/21/17 12/21/17 19:35 17:15 21:39 WBC RBC Hgb Hct MCV MCH MCHC RDW Plt Count MPV Gran % Lymph % (Auto) [place] % (Auto) Eos % (Auto) Baso % (Auto) Gran # Lymph # (Auto) [place] # (Auto) Eos # (Auto) Baso # (Auto) APTT Sodium Potassium Chloride Carbon Dioxide Anion Gap BUN Creatinine Est GFR ( Amer) Est GFR (Non-Af Amer) POC Glucose (mg/dL) 297 H 201 H Random Glucose Calcium Total Bilirubin AST ALT Alkaline Phosphatase Troponin I Total Protein Albumin Globulin Albumin/Globulin Ratio Blood Type O POSITIVE Antibody Screen Negative Crossmatch See Detail BBK History Checked Patient has bt 12/22/17 12/22/17 12/22/17 06:40 06:40 06:40 WBC 7.4 RBC 2.32 L Hgb 7.7 L Hct 23.8 L MCV 102.6 MCH 33.2 MCHC 32.4 RDW 19.2 H Plt Count 98 L MPV 10.2 Gran % 77.0 H Lymph % (Auto) 12.0 L [place] % (Auto) 10.9 H Eos % (Auto) 0.1 L Baso % (Auto) 0.0 Gran # 5.70 Lymph # (Auto) 0.9 L [place] # (Auto) 0.8 H Eos # (Auto) 0.0 Baso # (Auto) 0.00 APTT 78.3 H Sodium 138 Potassium 4.4 Chloride 105 Carbon Dioxide 25 Anion Gap 12 BUN 16 Creatinine 1.0 Est GFR ( Amer) > 60 Est GFR (Non-Af Amer) > 60 POC Glucose (mg/dL) Random Glucose 155 H Calcium 8.4 Total Bilirubin 0.4 AST 25 ALT 32 Alkaline Phosphatase 67 Troponin I Total Protein 6.0 Albumin 3.4 Globulin 2.6 Albumin/Globulin Ratio 1.3 Blood Type Antibody Screen Crossmatch BBK History Checked 12/22/17 12/22/17 06:40 08:02 WBC RBC Hgb Hct MCV MCH MCHC RDW Plt Count MPV Gran % Lymph % (Auto) [place] % (Auto) Eos % (Auto) Baso % (Auto) Gran # Lymph # (Auto) [place] # (Auto) Eos # (Auto) Baso # (Auto) APTT Sodium Potassium Chloride Carbon Dioxide Anion Gap BUN Creatinine Est GFR ( Amer) Est GFR (Non-Af Amer) POC Glucose (mg/dL) 167 H Random Glucose Calcium Total Bilirubin AST ALT Alkaline Phosphatase Troponin I 0.06 D Total Protein Albumin Globulin Albumin/Globulin Ratio Blood Type Antibody Screen Crossmatch BBK History Checked Critical Care Progress Note - Nutrition Nutrition: Nutrition Category Date Time Status Heart Healthy Diet [DIET] Diets 12/21/17 Dinner Active Assessment/Plan - Assessment and Plan (Free Text) Plan: Patient seen and examined on rounds with resident, agree with note with following additions/exceptions: Patient is a 37 y/o F with PMHx of AML (s/p chemotherapy, 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 Currently afebrile, BP stable, comfortable in NAD, sat 100% on 2LNC, on heparin drip. Cardiology, IR, and heme onc following. HH dropped ot 7.7 today (baseline 8-9), repeat HH pending, FOBT pending, will monitor closely Patient scheduled to be transferred to [facility] for further management/care as majority of her care is there Bilateral PE DVT Hx of AML Hx BMT GVHD Recommend: - supp o2 as needed - duonebs PRN - NO ID issues - BP monitoring - Heparin drip, monitor Ptt closely - IR follow up - Cardiology follow up - repeat Hgb, check FOBT - GI ppx - DVT ppx - transfer to [facility]
[2017-12-22] MEDS: POLYETHYLENE GLYCOL 3350 17 GM/Dose PACKET PO SCH (10:12)
[2017-12-22] MEDS: Pantoprazole 40 mg EC Tab PO SCH (10:14)
[2017-12-22] MEDS: MAGNESIUM AMINO ACID CHELATE PO SCH ×2 (10:15→13:52)
[2017-12-22] MEDS ORDERED: DiphenhydrAMINE 50 mg/ml Inj IVP ONE (11:20)
--- NOTE | 2017-12-22 11:21 | CP.PCM.PN ---
Subjective - Date & Time of Evaluation Date of Evaluation: 12/22/17 Time of Evaluation: 07:00 - Subjective Subjective: Yeny Anthony DO PGY-2, Hematology and Oncology Progress Note Patient seen and examined at bedside. Patient reports bleeding from vaginal area overnight. Patient given 10 mg of DepoProvera and OBGYN was consulted. 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 Objective - Vital Signs/Intake and Output Vital Signs (last 24 hours): Temp Pulse Resp BP Pulse Ox 98 F 86 19 136/101 H 100 12/22/17 04:00 12/22/17 10:13 12/22/17 08:30 12/22/17 10:13 12/22/17 08:40 Intake and Output: 12/22/17 12/22/17 06:59 18:59 Intake Total 500 Output Total 150 Balance 350 - Medications Medications: Current Medications Acetaminophen (Tylenol 325mg Tab) 650 mg PO STAT STA Stop: 12/22/17 11:19 Azithromycin (Zithromax) 250 mg PO MON [facility] PRN Reason: Protocol Azithromycin (Zithromax) 250 mg PO FRI [facility] PRN Reason: Protocol Dextrose (Dextrose 50% Inj) 0 ml IV STAT PRN; Protocol PRN Reason: Hypoglycemia Protocol Diltiazem HCl (Cardizem) 30 mg PO TID [facility] Last Admin: 12/22/17 10:13 Dose: 30 mg Diphenhydramine HCl (Benadryl) 25 mg IVP ONCE ONE Stop: 12/22/17 11:21 Folic Acid (Folic Acid) 2 mg PO DAILY [facility] Last Admin: 12/22/17 10:13 Dose: 2 mg Home Med (Home Med) 0 unit PO BRKDIN [facility] Last Admin: 12/22/17 08:23 Dose: 1 unit Hydrocortisone Sodium Succinate (Solu-Cortef) 100 mg IVP ONCE ONE Stop: 12/22/17 11:20 Heparin Sodium/Sodium Chloride (Heparin 61671 Units/250ml 1/2 Normal Saline) 25 ,000 units in 250 mls @ 14.223 mls/hr IV .[id number] PRN; Protocol; 18 UNITS/KG/HR PRN Reason: ADJUST RATE PER PROTOCOL Last Admin: 12/21/17 17:37 Dose: 18 units/kg/hr, 14.223 mls/hr Dextrose (Dextrose 5% In Water 1000 Ml) 1,000 mls @ 0 mls/hr IV .Q0M PRN; Protocol; Per Protocol PRN Reason: Hypoglycemia Protocol Insulin Human Lispro (Humalog Med) 0 units SC ACHS [facility] PRN Reason: Protocol Last Admin: 12/22/17 08:00 Dose: 1 unit Medroxyprogesterone Acetate (Provera) 10 mg PO DAILY [facility] Stop: 12/28/17 10:01 Last Admin: 12/22/17 10:07 Dose: 10 mg Metoprolol Tartrate (Lopressor) 25 mg PO Q12H [facility] Last Admin: 12/22/17 08:25 Dose: 25 mg Posaconazole [ Noxafil] 300 Mg ( Home Med) 300 mg PO DIN [facility] Last Admin: 12/21/17 17:25 Dose: 300 mg Magnesium Amino Acid Chelate [Magnesium] 399 Mg) 399 mg PO TID [facility] Last Admin: 12/22/17 10:15 Dose: 399 mg Oxycodone HCl (Oxycodone Immediate Release Tab) 5 mg PO Q12H PRN PRN Reason: Pain, moderate (4-7) Last Admin: 12/21/17 10:01 Dose: 5 mg Oxycodone HCl (Oxycontin Extended Release Tab) 10 mg PO DAILY [facility] Last Admin: 12/22/17 10:33 Dose: Not Given Pantoprazole Sodium (Protonix Ec Tab) 40 mg PO DAILY [facility] Last Admin: 12/22/17 10:14 Dose: 40 mg Polyethylene Glycol (Miralax) 17 gm PO DAILY [facility] Last Admin: 12/22/17 10:12 Dose: 17 gm Prednisone (Prednisone Tab) 30 mg PO DAILY [facility] Last Admin: 12/22/17 10:14 Dose: 30 mg Sodium Bicarbonate (Sodium Bicarbonate Tab) 325 mg PO BID [facility] Last Admin: 12/22/17 10:13 Dose: 325 mg Trimethoprim/Sulfamethoxazole (Bactrim Ss Tab) 1 tab PO MWF [facility] PRN Reason: Protocol Last Admin: 12/21/17 10:10 Dose: 1 tab Ursodiol (Actigall) 300 mg PO TID [facility] Last Admin: 12/22/17 10:12 Dose: 300 mg Valacyclovir HCl (Valtrex) 500 mg PO BID [facility] PRN Reason: Protocol Last Admin: 12/22/17 10:12 Dose: 500 mg - Labs Labs: 12/22/17 06:40 12/22/17 06:40 PT 11.5 SECONDS (9.4-12.5) 12/20/17 18:45 INR 1.01 (0.93-1.08) 12/20/17 18:45 APTT 78.3 Seconds (25.1-36.5) H 12/22/17 06:40 - Constitutional Appears: Non-toxic - Head Exam Head Exam: ATRAUMATIC, NORMOCEPHALIC - Eye Exam Eye Exam: EOMI, Normal appearance - ENT Exam ENT Exam: Mucous Membranes Moist - Neck Exam Neck Exam: Normal Inspection - Respiratory Exam Respiratory Exam: Clear to Ausculation Bilateral, NORMAL BREATHING PATTERN. 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 She also has a history of bilateral DVTs and hemorhagic shock in June 2015 requiring transfusion of blood products in 2015 and ICU admission while the patient was on Xarelto. She currently presents with left calf pain and was found to have DVTs in the bilateral loer extremities and a saddle pulmonary embolus. She is on a therapeutic heparin drip. Patient had vaginal bleeding overnight and was given one 10 mg dose of Depoprovera and 1 unit of irradited leukocyte reduced, CMV negative, of blood. Her Hgb remained at baseline and she was transferred to [facility] given we could not offer the most complete care here in [facility]. Case reviewed and discussed with Dr. Wilkinson
[2017-12-22 11:39] LABS: MEAN CELL VOLUME 103.4 fl (80.0-105.0); MEAN CORPUSCULAR HEMOGLOBIN 33.9 pg (25.0-35.0); MEAN CORPUSCULAR HGB CONC 32.8 g/dl (31.0-37.0); MEAN PLATELET VOLUME 9.6 fl (7.0-11.0); RBC 2.36 10^6/uL (3.5-6.1); RED CELL DISTRIBUTION WIDTH 19.2 % (11.5-14.5); WHITE BLOOD COUNT 7.5 10^3/ul (4.5-11.0)
[2017-12-22] MEDS: Heparin25000 units/250ml 1/2NS 25,000 UNITS/250 ML BAG IV PRN (13:48)
--- NOTE | 2017-12-22 13:55 | CON ---
DATE: 12/22/2017 REASON FOR CONSULTATION: Acute pulmonary embolus, positive troponins. HISTORY OF PRESENT ILLNESS: This is a 37-year-old woman admitted on the . She has a complex medical history. She presented with leg symptoms for several days, DVT, severe dyspnea on exertion, syncope and was found to have saddle embolus and admitted to the Intensive Care Unit and started on heparin therapy. She has improved clinically and hemodynamically. A troponin was elevated. I was asked for Cardiology consultation. Today, she has no chest pain or shortness of breath while resting in bed. There is no orthopnea, PND, vertigo, palpitations, cough, sputum production, hemoptysis, abdominal pain, nausea, vomiting, diarrhea or melena. 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 She underwent a course of chemotherapy and had a remission, but then had a recurrence and required additional chemotherapy and ultimately a bone marrow transplantation in 10/2017. This was complicated by BK virus infection and graft versus host disease. She has had DVT and hemorrhagic shock after being treated with Xarelto in the past. She also has a history of hypertension and asthma, but there is no prior cardiac history. Her initial symptoms are well described in the chart. She developed lower extremity pain for several days, bilateral DVT was found in [facility]. She was started on Lovenox and discharged. When she went home, she had a near syncopal episode climbing the stairs. She came to the emergency room thereafter. There is no history of rheumatic fever, myocardial infarction, angina, congestive heart failure, arrhythmia, stroke, TIA or gout. MEDICATIONS: At the time of admission included folic acid, magnesium, metoprolol, Bactrim, Prograf, Actigall, oxycodone. CURRENT MEDICATIONS: Include Actigall, Bactrim, Cardizem p.o., folic acid, IV heparin therapeutic doses, metoprolol, magnesium, oxycodone, posaconazole, prednisone, pantoprazole, medroxyprogesterone, sodium bicarb, Valtrex, azithromycin. ALLERGIES: SHE NOTES AN ALLERGY TO LACTOSE. FAMILY HISTORY: Notable for diabetes, cancer and hypertension. REVIEW OF SYSTEMS: Ten-point review of systems is otherwise unremarkable except as noted above. PHYSICAL EXAMINATION: GENERAL: She is a well-developed woman lying in bed, in the Intensive Care Unit, no acute distress. Her mother is at the bedside. VITAL SIGNS: Notable for sinus rhythm 86 beats per minute, she is afebrile, blood pressure elevated at 140/104, respiratory rate of 14 to 21, O2 sat 100% on nasal cannula. HEENT: Reveals no neck vein distention,thyromegaly, carotid bruit. Mucous membranes moist. Conjunctivae pale. NECK: Supple. LUNGS: Lung thomas clear with a few scattered rhonchi. HEART: Revealed normal first and second heart sounds. ABDOMEN: Soft. Bowel sounds are present. No mass, organomegaly, tenderness, rebound, guarding. EXTREMITIES: Revealed some tenderness bilaterally, not significantly edematous. NEUROLOGICAL: Awake, alert and oriented. SKIN: Warm and dry. No rash or cellulitis. PSYCHIATRIC: Normal as to mood and affect. LABORATORY AND IMAGING: Initial EKG demonstrated sinus tachycardia, right bundle-branch block, extensive ST and T-wave changes, possible inferior injury pattern. Subsequent EKG's have improved, right bundle-branch block has resolved, the ST segment abnormalities have improved. Initial portable chest x-ray revealed no active disease. A CT scan of the chest on admission revealed a saddle embolus as well as extensive emboli in the pulmonary arteries bilaterally, lower and upper lobes, see full report. An echocardiogram reveals normal left ventricular function with LVH, no significant left-sided valve pathology, right ventricle is mild to moderately dilated. There is [id number] tricuspid regurgitation, [id number] pulmonary hypertension. An extremity ultrasound was done, the results are pending. White count 7400, hemoglobin down to 7.7, hematocrit of 23.8, platelet count 98,000, PT/INR, PTT initially normal, D-dimer 5250, current PTT on heparin is 78.3, initial electrolytes unremarkable with potassium of 5, creatinine 1.2, mild elevation of LFTs, troponin is 0.12, 0.28 and 0.23, total cholesterol 196, triglycerides 281, LDL 94, HDL 66. BMP this morning is unremarkable, blood sugar of 167, LFT's normal, troponin 0.06. 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 She has improved in the Intensive Care Unit, getting heparin therapy with therapeutic levels. She is being followed by Oncology here. She has been hypertensive. Her echocardiogram is noted. The troponins appeared to be due to acute pulmonary embolus rather than acute myocardial infarction. Her EKG's have improved from their initial presentation. I agree with current plans including anticoagulation. I would confer with Oncology here and at [facility] with regard to selecting an oral agent and arranging follow up for her. 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 We should titrate her antihypertensive medications and follow up echocardiogram would be appropriate probably in a couple of days. We will await the results of the followup Duplex lower extremity ultrasound. We should check stools for occult blood since worsening anemia is noted. She can be out of bed to a chair later on if she feels up to it. We will monitor I's and O's, daily labs. I will follow along with you and make additional recommendations based on her clinical course. Spencer Vasquez MD [facility]
--- NOTE | 2017-12-22 14:16 | CP.PCM.DIS ---
<Sergio Bryant - Last Filed: 12/22/17 19:51> Provider - Provider Date of Admission: 12/20/17 19:19 Attending physician: Miguel Angel Mooney MD Primary care physician: Jojo Herron MD Consults: Cardiology: Dr. Vasquez Interventional Radiology: Dr. Lerma Heme/oncology: OBGYN: Dr. Alonso Pulm/Crit: Dr. Jeter Time Spent in preparation of Discharge (in minutes): 60 Diagnosis - Discharge Diagnosis (1) Saddle pulmonary embolus Status: Acute Priority: High (2) DVT (deep venous thrombosis) Status: Acute (3) Dysfunctional uterine bleeding Status: Acute Priority: Medium (4) Anemia Status: Chronic Priority: Medium (5) Thrombocytopenia Status: Chronic Priority: Medium (6) Leukemia Status: Chronic Priority: Medium (7) Hyperglycemia Status: Acute Priority: Medium Hospital Course - Lab Results Lab Results: Micro Results 12/20/17 22:40 Nose MRSA Culture (Admit) - Final MRSA NOT DETECTED Most Recent Lab Values WBC 7.5 10^3/ul (4.5-11.0) 12/22/17 11:30 RBC 2.36 10^6/uL (3.5-6.1) L 12/22/17 11:30 Hgb 8.0 g/dL (12.0-16.0) L 12/22/17 11:30 Hct 24.4 % (36.0-48.0) L 12/22/17 11:30 MCV 103.4 fl (80.0-105.0) 12/22/17 11:30 MCH 33.9 pg (25.0-35.0) 12/22/17 11:30 MCHC 32.8 g/dl (31.0-37.0) 12/22/17 11:30 RDW 19.2 % (11.5-14.5) H 12/22/17 11:30 Plt Count 81 10^3/uL (120.0-450.0) L 12/22/17 11:30 MPV 9.6 fl (7.0-11.0) 12/22/17 11:30 Gran % 77.0 % (50.0-68.0) H 12/22/17 06:40 Lymph % (Auto) 12.0 % (22.0-35.0) L 12/22/17 06:40 Hudson % (Auto) 10.9 % (1.0-6.0) H 12/22/17 06:40 Eos % (Auto) 0.1 % (1.5-5.0) L 12/22/17 06:40 Baso % (Auto) 0.0 % (0.0-3.0) 12/22/17 06:40 Gran # 5.70 (1.4-6.5) 12/22/17 06:40 Lymph # (Auto) 0.9 (1.2-3.4) L 12/22/17 06:40 Hudson # (Auto) 0.8 (0.1-0.6) H 12/22/17 06:40 Eos # (Auto) 0.0 (0.0-0.7) 12/22/17 06:40 Baso # (Auto) 0.00 K/mm3 (0.0-2.0) 12/22/17 06:40 Neutrophils % (Manual) 86 % (50.0-70.0) H 12/20/17 18:45 Band Neutrophils % 3 % (0-2) H 12/20/17 18:45 Lymphocytes % (Manual) 8 % (22.0-35.0) L 12/20/17 18:45 Monocytes % (Manual) 2 % (1.0-6.0) 12/20/17 18:45 Metamyelocytes % 1 % 12/20/17 18:45 Nucleated RBC % 2 % 12/20/17 18:45 Platelet Evaluation Low (NORMAL) 12/20/17 18:45 PT 11.5 SECONDS (9.4-12.5) 12/20/17 18:45 INR 1.01 (0.93-1.08) 12/20/17 18:45 APTT 78.3 Seconds (25.1-36.5) H 12/22/17 06:40 D-Dimer, Quantitative > 5250 ng/mL (0-243) H 12/20/17 18:45 Sodium 138 mmol/L (132-148) 12/22/17 06:40 Potassium 4.4 mmol/L (3.6-5.0) 12/22/17 06:40 Chloride 105 mmol/L (98-107) 12/22/17 06:40 Carbon Dioxide 25 mmol/L (21-33) 12/22/17 06:40 Anion Gap 12 (10-20) 12/22/17 06:40 BUN 16 mg/dL (7-21) 12/22/17 06:40 Creatinine 1.0 mg/dl (0.7-1.2) 07 06:40 Est GFR ( Amer) > 60 12/22/17 06:40 Est GFR (Non-Af Amer) > 60 12/22/17 06:40 POC Glucose (mg/dL) 163 mg/dL (65-110) H 12/22/17 11:41 Random Glucose 155 mg/dL (70-110) H 12/22/17 06:40 Calcium 8.4 mg/dL (8.4-10.5) 12/22/17 06:40 Phosphorus 3.1 mg/dL (2.5-4.5) 12/21/17 05:30 Magnesium 1.5 mg/dL (1.7-2.2) L 12/21/17 05:30 Total Bilirubin 0.4 mg/dL (0.2-1.3) 12/22/17 06:40 AST 25 U/L (14-36) 12/22/17 06:40 ALT 32 U/L (7-56) 12/22/17 06:40 Alkaline Phosphatase 67 U/L (38-126) 12/22/17 06:40 Lactate Dehydrogenase 1125 U/L (333-699) H 12/20/17 18:45 Total Creatine Kinase 72 U/L (35-230) 12/20/17 18:45 Troponin I 0.06 ng/mL D 12/22/17 06:40 Total Protein 6.0 g/dL (5.8-8.3) 12/22/17 06:40 Albumin 3.4 g/dL (3.0-4.8) 12/22/17 06:40 Globulin 2.6 gm/dL 12/22/17 06:40 Albumin/Globulin Ratio 1.3 (1.1-1.8) 12/22/17 06:40 Triglycerides 281 mg/dL (35-160) H 12/21/17 05:30 Cholesterol 196 mg/dL (130-200) 12/21/17 05:30 LDL Cholesterol Direct 94 mg/dL (0-129) 12/21/17 05:30 HDL Cholesterol 66 mg/dL (29-60) H 12/21/17 05:30 Blood Type O POSITIVE 12/20/17 19:35 Antibody Screen Negative 12/20/17 19:35 Crossmatch See Detail 12/20/17 19:35 BBK History Checked Patient has bt 12/20/17 19:35 - Hospital Course Hospital Course: Sergio Bryant D.O. PGY1 -- Machine Builder -- Hospital Course Summary Ms. 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 Patient presents to [facility] on 12/20/17, s/p witnessed syncopal episodes 2x while trying to climb up the stairs of her house while returning from her [facility] appointment. Prior to arriving to [facility], patient was found to have bilateral lower extremity DVTs on ultrasound and was given a dose of Lovenox and was sent home to continue with therapeutic lovenox ( 80 mg bid). While in [facility], patient was suspected to have PE due to her recent diagnosis of DVT and syncopal episodes. Thus D-dimer was obtained which was elevated. Patient was also noted to have tachycardia with HR in the 130S. CTangiogram was performed and showed Saddle embolus as well extensive emboli in the pulmonary arteries bilaterally lower and upper lobes. Interventional radiologist was consulted and reported that no intervention was indicated at the time due to patient's hemodynamic stability and resolution of the syncopal episodes. Patient was admitted to ICU, heparin drip was started and Hematology oncologist was consulted. Furthermore, patient was found to have elevated troponin, and echo Normal LVEF, with RVP elevation consistent with right heart strain. Broaching Machine Repairer was also consulted and agreed with the plan. Patient's transplant physician, Dr. Lino was contacted the following morning on 12/21, and they agreed on our current plan and management. Patient's home medications were resumed according current medication list provided by the patient and her family, except OCP was held due to PE/DVT. On evening of hospital day 2, patient reported vaginal bleeding, however the bleeding became light, in the next morning. Patient was noted to have a drop in her hgb from baseline of 8 to 7.7. EXERCISE EQUIPMENT SPECIALIST was consulted and agreed with holding ocp , and starting provera. On repeat H/H hemoglobin was back to the baseline of around 8. Patient was type and crossed and got 1 units of prbc as per [facility] heme/ onc. Dr. [facility] was contacted agreed to transfer patient to [facility] transplant floor for close monitoring, and management of the above conditions. Discharge medications: Heparin drip Azithromycin (Z-ami) 250mg PO MON Azithromycin (Zithromax) 250mg PO FRI Diltiazem HCl 30 mg PO TID Folic Acid 2mg PO Daily Magnesium amino acid chelate 399 mg PO TID Medroxyprogesterone (provera) 10mg PO Daily Metoprolol tartate 25mg PO Q12H Oxycodone immediate release 5mg PO Q12H PRN Oxycodone extended release 10mg PO Daily Protonix 40mg PO Daily Noxafil 300mg PO Daily Prednisone 30mg PO Daily Sodium bicarb 325mg PO Daily Sulfamethoxazole 1 tab PO MWF Tacrolimus 0.5mg PO BRKDIN Ursodiol 300mg PO AC Valtrex 500mg PO BID - Date & Time of H&P Date of H&P: 12/20/17 Time of H&P: 21:16 Discharge Exam - Head Exam Head Exam: ATRAUMATIC, NORMAL INSPECTION, NORMOCEPHALIC - Eye Exam Eye Exam: PERRL Pupil Exam: NORMAL ACCOMODATION - ENT Exam ENT Exam: Mucous Membranes Moist, Normal Exam - Neck Exam Neck exam: Full Rom, Normal Inspection - Respiratory Exam Respiratory Exam: Clear to PA & Lateral, NORMAL BREATHING PATTERN, UNREMARKABLE. absent: Accessory Muscle Use, Chest Wall Tenderness, Decreased Breath Sounds, Prolonged Expiratory Phase, Rales, Rhonchi, Wheezes, Respiratory Distress, Stridor - Cardiovascular Exam Cardiovascular Exam: Tachycardia (92 beats per minute ), REGULAR RHYTHM. absent : Bradycardia, Clicks, Diastolic murmur, Gallop, Irregular Rhythm, RRR, Rubs, Systolic Murmur - GI/Abdominal Exam GI & Abdominal Exam: Normal Bowel Sounds, Unremarkable - Exam Exam: NORMAL INSPECTION (minimal red discharge appreciated in suction canister) - Extremities Exam Extremities exam: normal inspection, pedal pulses present - Back Exam Back exam: NORMAL INSPECTION. absent: paraspinal tenderness, rash noted - Neurological Exam Neurological exam: Alert, CN II-XII Intact, Normal Gait, Oriented x3, Reflexes Normal - Psychiatric Exam Psychiatric exam: Normal Affect, Normal Mood - Skin Skin Exam: Dry, Intact, Normal Color, Warm Discharge Plan - Follow Up Plan Condition: CRITICAL Disposition: Trans to Other Acute Care Hosp Instructions: Heart Healthy Diet, Deep Vein Thrombosis (Blood Clots in the Legs ) (DC), Heparin, Medroxyprogesterone, Pulmonary Embolism (DC), Pulmonary Embolism (GEN), Syncope (ED), Syncope (DC), Syncope (GEN) Additional Instructions: Patient to be transferred to [facility] to continue treatment for DVT, pulmonary embolism, and estrogen withdrawal bleed. continue heparin drip. Referrals: Jojo Herron MD [Primary Care Provider] - <Miguel Angel Mooney - Last Filed: 12/23/17 15:45> Provider - Provider Date of Admission: 12/20/17 19:19 Attending physician: Miguel Angel Mooney MD Primary care physician: Jojo Herron MD Hospital Course - Lab Results Lab Results: Micro Results 12/20/17 22:40 Nose MRSA Culture (Admit) - Final MRSA NOT DETECTED Most Recent Lab Values WBC 7.5 10^3/ul (4.5-11.0) 12/22/17 11:30 RBC 2.36 10^6/uL (3.5-6.1) L 12/22/17 11:30 Hgb 8.0 g/dL (12.0-16.0) L 12/22/17 11:30 Hct 24.4 % (36.0-48.0) L 12/22/17 11:30 MCV 103.4 fl (80.0-105.0) 12/22/17 11:30 MCH 33.9 pg (25.0-35.0) 12/22/17 11:30 MCHC 32.8 g/dl (31.0-37.0) 12/22/17 11:30 RDW 19.2 % (11.5-14.5) H 12/22/17 11:30 Plt Count 81 10^3/uL (120.0-450.0) L 12/22/17 11:30 MPV 9.6 fl (7.0-11.0) 12/22/17 11:30 Gran % 77.0 % (50.0-68.0) H 12/22/17 06:40 Lymph % (Auto) 12.0 % (22.0-35.0) L 12/22/17 06:40 Hudson % (Auto) 10.9 % (1.0-6.0) H 12/22/17 06:40 Eos % (Auto) 0.1 % (1.5-5.0) L 12/22/17 06:40 Baso % (Auto) 0.0 % (0.0-3.0) 12/22/17 06:40 Gran # 5.70 (1.4-6.5) 12/22/17 06:40 Lymph # (Auto) 0.9 (1.2-3.4) L 12/22/17 06:40 Hudson # (Auto) 0.8 (0.1-0.6) H 12/22/17 06:40 Eos # (Auto) 0.0 (0.0-0.7) 12/22/17 06:40 Baso # (Auto) 0.00 K/mm3 (0.0-2.0) 12/22/17 06:40 Neutrophils % (Manual) 86 % (50.0-70.0) H 12/20/17 18:45 Band Neutrophils % 3 % (0-2) H 12/20/17 18:45 Lymphocytes % (Manual) 8 % (22.0-35.0) L 12/20/17 18:45 Monocytes % (Manual) 2 % (1.0-6.0) 12/20/17 18:45 Metamyelocytes % 1 % 12/20/17 18:45 Nucleated RBC % 2 % 12/20/17 18:45 Platelet Evaluation Low (NORMAL) 12/20/17 18:45 PT 11.5 SECONDS (9.4-12.5) 12/20/17 18:45 INR 1.01 (0.93-1.08) 12/20/17 18:45 APTT 78.3 Seconds (25.1-36.5) H 12/22/17 06:40 D-Dimer, Quantitative > 5250 ng/mL (0-243) H 12/20/17 18:45 Sodium 138 mmol/L (132-148) 12/22/17 06:40 Potassium 4.4 mmol/L (3.6-5.0) 12/22/17 06:40 Chloride 105 mmol/L (98-107) 12/22/17 06:40 Carbon Dioxide 25 mmol/L (21-33) 12/22/17 06:40 Anion Gap 12 (10-20) 12/22/17 06:40 BUN 16 mg/dL (7-21) 12/22/17 06:40 Creatinine 1.0 mg/dl (0.7-1.2) 12/22/17 06:40 Est GFR ( Amer) > 60 12/22/17 06:40 Est GFR (Non-Af Amer) > 60 12/22/17 06:40 POC Glucose (mg/dL) 163 mg/dL (65-110) H 12/22/17 11:41 Random Glucose 155 mg/dL (70-110) H 12/22/17 06:40 Hemoglobin A1c 6.9 % (4.2-6.5) H 12/21/17 05:30 Calcium 8.4 mg/dL (8.4-10.5) 12/22/17 06:40 Phosphorus 3.1 mg/dL (2.5-4.5) 12/21/17 05:30 Magnesium 1.5 mg/dL (1.7-2.2) L 12/21/17 05:30 Total Bilirubin 0.4 mg/dL (0.2-1.3) 12/22/17 06:40 AST 25 U/L (14-36) 12/22/17 06:40 ALT 32 U/L (7-56) 12/22/17 06:40 Alkaline Phosphatase 67 U/L (38-126) 12/22/17 06:40 Lactate Dehydrogenase 1125 U/L (333-699) H 12/20/17 18:45 Total Creatine Kinase 72 U/L (35-230) 12/20/17 18:45 Troponin I 0.06 ng/mL D 12/22/17 06:40 Total Protein 6.0 g/dL (5.8-8.3) 12/22/17 06:40 Albumin 3.4 g/dL (3.0-4.8) 12/22/17 06:40 Globulin 2.6 gm/dL 12/22/17 06:40 Albumin/Globulin Ratio 1.3 (1.1-1.8) 12/22/17 06:40 Triglycerides 281 mg/dL (35-160) H 12/21/17 05:30 Cholesterol 196 mg/dL (130-200) 12/21/17 05:30 LDL Cholesterol Direct 94 mg/dL (0-129) 12/21/17 05:30 HDL Cholesterol 66 mg/dL (29-60) H 12/21/17 05:30 Blood Type O POSITIVE 12/20/17 19:35 Antibody Screen Negative 12/20/17 19:35 Crossmatch See Detail 12/20/17 19:35 BBK History Checked Patient has bt 12/20/17 19:35 Attending/Attestation - Attestation I have personally seen and examined this patient.: Yes I have fully participated in the care of the patient.: Yes I have reviewed all pertinent clinical information, including history, physical exam and plan: Yes Notes (Text): 12/23/17 15:42 attending note; Patient seen and examined with resident in ICU. Patient's mother by the bedside. patient is feeling much better. Shortness of breath is improved. Tachycardia resolved. Currently on oxygen nasal cannula. Denies any chest pain, shortness of breath. Complaining f vaginal bleeding minimal amount. patient is a 37 year old female with a significant past medical history of AML status post chemotherapy, bone marrow transplant in September, graft vs host disease , hypertension, asthma, and BK virus infection UTi secondary to bone marrow transplant who arrived at [facility] for bilateral leg pain and episode of syncope and was subsequently admitted for evaluation and treatment of bilateral pulmonary embolism. Echocardiogram showed significant right ventricular strain and decreased right ventricular function and moderate to severe pulmonary hypertension secondary to acute saddle embolus. Currently on IV heparin drip. PTT is therapeutic. Patient is hemodynamically stable. acute EKG changes; secondary to pulmonary embolus. Elevated troponin; secondary to right ventricular strain due to pulmonary embolus. Cardiology evaluation appreciated. Anemia; chronic. Baseline hemoglobin is 8-9. mild drop in hemoglobin 7.7. 1 unit transfusion ordered by oncology team. Patient was on estrogen-containing hormonal pill for vaginal bleeding. currently started on Provera. EXERCISE EQUIPMENT SPECIALIST evaluation appreciated. Suggested to continue progesterone containing pills to control vaginal bleeding. Avoid estrogen containing hormonal pills. Patient with a history of hemorrhagic shock in the past while on anticoagulation. AML status post chemotherapy and bone marrow transplant. Oncology evaluation requested. continue medication per oncology team post transplant. Continue acyclovir, posaconazole, prednisone, Prograf and Bactrim. Case discussed with [facility] oncology team in detail. Transfer to [facility] transplant floor today. the diagnosis, treatment option and follow-up plan discussed with patient and patient's mother in detail. upon discharge the patient will follow-up with PMD Dr. Herron.
[2017-12-22 15:32] VITALS: TEMP 98.1
--- NOTE | 2017-12-22 16:19 | US ---
HISTORY: Leg pain and swelling. Evaluate for DVT PHYSICIAN(S): Young Lerma MD. TECHNIQUE: Duplex sonography and color-flow Doppler with graded compression were used to evaluate the deep venous systems of both lower extremities. FINDINGS: Occlusive hypoechoic thrombus is noted in the right popliteal and visualized tibial veins. Occlusive thrombus is also noted in the distal left femoral vein, popliteal vein, and visualized tibial veins. IMPRESSION: Bilateral acute occlusive lower extremity DVT as described above
[2017-12-22 16:31] VITALS: BP 142/105; PULSE 92; RESP 21; O2SAT 88
--- NOTE | 2017-12-23 14:00 | PQF ---
PROVIDER RESPONSE TEXT: Acute on chronic anemia. Patient has chronic anemia due to bone marrow transplant and s/p chemotherapy. Acute blood loss is due to vaginal bleeding. REVIEWER QUERY TEXT: Anemia Type Anemia is documented in the Medical Record. Please specify the cause (includes suspected or probable cause) Such as: -- Due to acute blood loss -- Due to chronic blood loss -- Due to iron deficiency -- Due to postoperative blood loss -- Due to chronic disease -- Other, please specify The patient's Clinical Indicators include: Please specify type of anemia, as listed. Thank you. Query created by: Sindy Lewis on 12/23/2017 11:50 AM Electronically signed by: Miguel Angel Mooney MD 12/23/2017 1:57 PM
== END 2017-12-22 17:45 | disposition short-term general hospital (02) | DRG 176 ==
LOC: ED 17:48 → ERH 19:19 → CCU 22:34
PROVIDERS: ADMIT Internal Medicine; ATTEND Internal Medicine
PROC: 30233N1 Transfusion of Nonautologous Red Blood Cells into Peripheral Vein, Percutaneous Approach (ICD-10-PCS; principal; 2017-12-22)
DX: I26.92 Saddle embolus of pulmonary artery without acute cor pulmonale (principal); I82.403 Acute embolism and thrombosis of unspecified deep veins of lower extremity, bilateral; C92.40 Acute promyelocytic leukemia, not having achieved remission; D89.813 Graft-versus-host disease, unspecified; Z94.81 Bone marrow transplant status; D62 Acute posthemorrhagic anemia; I07.1 Rheumatic tricuspid insufficiency; I27.20 Pulmonary hypertension, unspecified; D69.6 Thrombocytopenia, unspecified; D70.9 Neutropenia, unspecified; Z83.3 Family history of diabetes mellitus; Z80.9 Family history of malignant neoplasm, unspecified; Z83.518 Family history of other specified eye disorder; Z82.49 Family history of ischemic heart disease and other diseases of the circulatory system; E11.65 Type 2 diabetes mellitus with hyperglycemia; F41.0 Panic disorder [episodic paroxysmal anxiety]; I10 Essential (primary) hypertension; J45.909 Unspecified asthma, uncomplicated; K12.30 Oral mucositis (ulcerative), unspecified; K59.00 Constipation, unspecified; N93.8 Other specified abnormal uterine and vaginal bleeding; Z79.52 Long term (current) use of systemic steroids; Z86.718 Personal history of other venous thrombosis and embolism; Z87.891 Personal history of nicotine dependence; Z92.21 Personal history of antineoplastic chemotherapy; R55 Syncope and collapse; Z91.018 Allergy to other foods; D50.0 Iron deficiency anemia secondary to blood loss (chronic)